=== PATIENT | female | born 1940 | race Caucasian/White ===

== ENCOUNTER → 2017-12-24 10:32 | Outpatient (CLI) | payer MEDICARE, OTHER, SELFPAY ==
--- NOTE | 2017-12-24 10:41 | HPBD_ITS ---
STUDY: DUAL ENERGY X-RAY ABSORPTIOMETRY / DXA REASON FOR EXAM: Female, 77 years old. The patient is postmenopausal. Loss of height. TECHNIQUE: Bone Mineral Density (BMD) measurements of lumbar spine and bilateral hips were obtained. COMPARISON: None. FINDINGS: Lumbar Spine (L1-L4): g/cm2 (0.845) / T-score (-2.8) / Z-score (-1.0) Findings are suggestive of osteoporosis with a moderate fracture risk. Increased kyphosis. Left Femur Total: g/cm2 (0.806) / T-score (-1.6) / Z-score (0.2) Left Femoral Neck: g/cm2 (0.742) / T-score (-2.1) / Z-score (-0.2) Right Femur Total: g/cm2 (0.690) / T-score (-2.5) / Z-score (-0.7) Right Femoral Neck: g/cm2 (0.653) / T-score (-2.8) / Z-score (-0.8) HPBD/Dexa Bone Density Study (HP) IMPRESSION: The patient is considered osteoporotic as outlined below according to World Bud Organization (WHO) criteria with a high fracture risk. Reference Information: The T-score is the number of standard deviations above or below the standard which is normal for young adults at their peak bone mineral density. The World Health Organization (WHO) interprets the T-scores as follows: Above -1 Normal bone density Between -1 and -2.5 Osteopenia Equal to / or below -2.5 Osteoporosis As a practical clinical guideline, osteopenia may be graded as follows: Mild -1 through -1.5 Moderate -1.6 through -2.0 Severe -2.1 through -2.4 The Z-score is the number of standard deviations above or below age-matched controls. A Z-score of less than -1.5 would be considered abnormal. References: 1. NIH Osteoporosis and Related Bone Diseases http://www.osteo.org 2. International Society for Clinical Densitometry http://www.iscd.org 3. National Osteoporosis Foundation http://www.nof.org Electronically Signed: Steve Sanchez MD at 15:07 EST Tel [phone], Service support ,
== END ==
PROVIDERS: Family Provider Family Medicine; PCP Family Medicine; Visit Provider Family Medicine
DX: Z13.820 Encounter for screening for osteoporosis (principal); Z78.0 Asymptomatic menopausal state
CPT/HCPCS: 77080

== ENCOUNTER → 2018-03-04 08:06 | Outpatient (CLI) | payer MEDICARE, OTHER, SELFPAY ==
[2018-03-04 10:45] LABS: ALB/GLOB Ratio 1.1 RATIO (0.9-2.4); AST(SGOT) 30 U/L (15-37); Alanine Aminotransfer ALT/SGPT 28 U/L (13-56); Albumin, Serum 3.8 g/dL (3.2-5.0); Alkaline Phosphatase 64 U/L (45-117); Anion Gap 8 (5-15); BUN 12 mg/dL (7-18); BUN/Creat Ratio 15.4 RATIO (10-20); Calcium,Total 9.1 mg/dL (8.5-10.1); Chloride 103 mmol/L (98-107); Creatinine, Serum 0.78 mg/dL (0.55-1.02); EST Glomerular Filtration Rate 77 mL/min (>60); Est Glom Filt Rate - Afr Amer 93 mL/min (>60); Globulin 3.5 g/dL (2.2-4.2); Glucose 82 mg/dL (74-106); Potassium 4.2 mmol/L (3.5-5.1); Protein, Total 7.3 g/dL (6.4-8.2); Sodium Level 138 mmol/L (136-145)
[2018-03-04 10:50] LABS: Hemoglobin A1c 5.3 % (4.2-6.3)
== END ==
PROVIDERS: Family Provider Family Medicine; PCP Family Medicine; Visit Provider Family Medicine
DX: R73.02 Impaired glucose tolerance (oral) (principal)
CPT/HCPCS: 36415; 80053; 83036

== ENCOUNTER → 2018-09-11 09:03 | Outpatient (CLI) | payer MEDICARE, OTHER, SELFPAY | PROVIDERS: Family Provider Family Medicine; PCP Family Medicine; Visit Provider Family Medicine | DX: R39.15 Urgency of urination (principal) | CPT/HCPCS: 87086; 87088; 87186 ==

== ENCOUNTER → 2019-01-09 08:08 | Outpatient (CLI) | payer MEDICARE, OTHER, SELFPAY ==
[2019-01-09 10:31] LABS: Hemoglobin A1c 5.7 % (4.2-6.3)
[2019-01-09 10:33] LABS: Phosphorus 3.9 mg/dL (2.5-4.9)
[2019-01-09 10:34] LABS: Vitamin D,25 Hydroxy 40.6 ng/mL (29.95-100.01)
== END ==
PROVIDERS: Family Provider Family Medicine; PCP Family Medicine; Referring Provider Family Medicine; Visit Provider Family Medicine
DX: R39.15 Urgency of urination (principal); M81.0 Age-related osteoporosis without current pathological fracture; R73.02 Impaired glucose tolerance (oral)
CPT/HCPCS: 36415; 82306; 82330; 83036; 84100

== ENCOUNTER → 2019-03-23 | Outpatient (CLI) | payer MEDICARE, OTHER, SELFPAY ==
[2019-03-23 09:07] VITALS: BMI 27.0
== END | disposition home or self-care (01) ==
LOC: LABSPEC 12:38
PROVIDERS: Family Provider Family Medicine; PCP Family Medicine; Referring Provider Nurse Practitioner Women's Health; Visit Provider Nurse Practitioner Women's Health
DX: R30.0 Dysuria (principal)
CPT/HCPCS: 87086; 87088; 87186

== ENCOUNTER → 2019-05-04 | Outpatient (CLI) | payer MEDICARE, OTHER, SELFPAY ==
[2019-04-08 14:34] VITALS: BMI 27.0
--- NOTE | 2019-05-04 13:50 | US_ITS ---
STUDY: RENAL ULTRASOUND - COMPLETE REASON FOR EXAM: Female, 78 years old. Urinary tract infection TECHNIQUE: Ultrasound evaluation of the kidneys was performed with real-time and static hauser-scale imaging. COMPARISON: None available. FINDINGS: RIGHT KIDNEY: Normal location of the right kidney, which is normal in size. The right kidney measures 10.4 cm. There is a normal cortex of the right kidney. There is no right renal mass or cyst. There are no right renal calculi. There is no right hydronephrosis. DISTAL RIGHT URETER: There is non-visualization of the distal right ureter. There is no demonstrated right ureterovesical junction calculus. There is no demonstrated right ureteral jet. LEFT KIDNEY: Normal location of the left kidney, which is normal in size. The left kidney measures 10.6 cm. There is a normal cortex of the left kidney. There is no left renal mass or cyst. There are no left renal calculi. There is no left hydronephrosis. DISTAL LEFT URETER: There is non-visualization of the distal left ureter. There is no demonstrated left ureterovesical junction calculus. There is no demonstrated left ureteral jet. BLADDER: The urinary bladder is partially distended and appears unremarkable. US/Kidney and Bladder IMPRESSION: Normal ultrasound of the kidneys and urinary bladder. Electronically Signed: Alec Morgan, at 18:38 EDT Tel , Service support ,
== END | disposition home or self-care (01) ==
LOC: US 13:42
PROVIDERS: Family Provider Family Medicine; PCP Family Medicine; Referring Provider Urology; Visit Provider Urology
DX: N39.0 Urinary tract infection, site not specified (principal)
CPT/HCPCS: 76770

== ENCOUNTER → 2019-05-08 | Outpatient (CLI) | payer MEDICARE, OTHER, SELFPAY ==
[2019-04-08 14:34] VITALS: BMI 27.0
[2019-05-08 10:24] LABS: ALB/GLOB Ratio 1.3 RATIO (0.9-2.4); AST(SGOT) 24 U/L (15-37); Alanine Aminotransfer ALT/SGPT 24 U/L (13-56); Albumin, Serum 3.8 g/dL (3.2-5.0); Alkaline Phosphatase 83 U/L (45-117); Anion Gap 9 (5-15); BUN 15 mg/dL (7-18); BUN/Creat Ratio 22.2 RATIO (10-20); Calcium,Total 9.1 mg/dL (8.5-10.1); Chloride 103 mmol/L (98-107); Creatinine, Serum 0.68 mg/dL (0.55-1.02); EST Glomerular Filtration Rate 90 mL/min (>60); Est Glom Filt Rate - Afr Amer 108 mL/min (>60); Glucose 83 mg/dL (74-106); Phosphorus 4.2 mg/dL (2.5-4.9); Potassium 4.5 mmol/L (3.5-5.1); Protein, Total 6.8 g/dL (6.4-8.2); Sodium Level 138 mmol/L (136-145)
[2019-05-08 10:29] LABS: Hemoglobin A1c 5.7 % (4.2-6.3)
[2019-05-08 10:37] LABS: Vitamin D,25 Hydroxy 50.3 ng/mL (29.95-100.01)
== END | disposition home or self-care (01) ==
LOC: MFPLAB 08:12
PROVIDERS: Family Provider Family Medicine; PCP Family Medicine; Referring Provider Family Medicine; Visit Provider Family Medicine
DX: M81.0 Age-related osteoporosis without current pathological fracture (principal); R73.02 Impaired glucose tolerance (oral)
CPT/HCPCS: 36415; 80053; 82306; 83036; 84100

== ENCOUNTER → 2019-06-30 | Outpatient (CLI) | payer MEDICARE, OTHER, SELFPAY ==
[2019-04-08 14:34] VITALS: BMI 27.0
[2019-06-30 10:22] LABS: Absolute Lymphocyte Count 0.82 X10^3/uL (0.83-4.51); Absolute Neutrophil Count 3.9 X10^3/uL (2.0-7.7); Basophil# 0.01 X10^3/uL; Basophil% 0.2 % (0-1); Eosinophil# 0.18 X10^3/uL; Eosinophils% 3.3 % (0-5); Hematocrit 39.9 % (37-47); Hemoglobin 12.8 g/dL (12.0-15.0); Lymphocyte # 0.82 X10^3/ul (4.0); Lymphocyte % 14.9 % (19-41); Mean Corp Hgb Conc 32.1 g/dL (32-36); Mean Corpuscular Hgb 29.7 pg (27.0-32.0); Mean Corpuscular Volume 92.6 fL (81-99); Mean Platelet Vol. 10.6 fl (6.2-12.0); Monocyte# 0.57 X10^3/uL; Monocyte% 10.3 % (0-10); NRBC Flagged by Analyzer 0 % (0-5); Neutrophil # 3.92 X10^3/uL (2.7-7.7); Neutrophil % 71.1 % (47-70); Platelet Count 227 K/mm3 (150-450); RBC Distribution Width CV 12.6 % (11.6-14.6); RBC Distribution Width SD 43.1 fl (35.1-43.9); Red Blood Count 4.31 M/mm3 (4.2-5.4); White Blood Count 5.5 K/mm3 (4.4-11.0)
[2019-06-30 10:58] LABS: T4 Free Direct 1.01 ng/dL (0.76-1.46); Thyroid Stim Hormone (TSH) 1.92 uIU/mL (0.358-3.74)
[2019-06-30 11:02] LABS: Vitamin B12 214 pg/mL (211-911)
== END | disposition home or self-care (01) ==
LOC: MFPLAB 09:02
PROVIDERS: Family Provider Family Medicine; PCP Family Medicine; Referring Provider Family Medicine; Visit Provider Family Medicine
DX: R53.83 Other fatigue (principal)
CPT/HCPCS: 36415; 82607; 84439; 84443; 85025

== ENCOUNTER → 2019-09-16 09:34 | Outpatient (CLI) | payer MEDICARE, OTHER, SELFPAY ==
[2019-04-08 14:34] VITALS: BMI 27.0
[2019-09-16 12:23] LABS: Absolute Lymphocyte Count 1.15 X10^3/uL (0.83-4.51); Absolute Neutrophil Count 3.7 X10^3/uL (2.0-7.7); Basophil# 0.04 X10^3/uL; Basophil% 0.7 % (0-1); Eosinophil# 0.21 X10^3/uL; Eosinophils% 3.7 % (0-5); Hematocrit 41.3 % (37-47); Hemoglobin 13.4 g/dL (12.0-15.0); Lymphocyte # 1.15 X10^3/ul (4.0); Lymphocyte % 20.3 % (19-41); Mean Corp Hgb Conc 32.4 g/dL (32-36); Mean Corpuscular Hgb 29.8 pg (27.0-32.0); Mean Platelet Vol. 10.5 fl (6.2-12.0); Monocyte# 0.56 X10^3/uL; Monocyte% 9.9 % (0-10); NRBC Flagged by Analyzer 0 % (0-5); Neutrophil # 3.69 X10^3/uL (2.7-7.7); Neutrophil % 65.2 % (47-70); Platelet Count 256 K/mm3 (150-450); RBC Distribution Width CV 12.6 % (11.6-14.6); RBC Distribution Width SD 42.5 fl (35.1-43.9); Red Blood Count 4.49 M/mm3 (4.2-5.4); White Blood Count 5.7 K/mm3 (4.4-11.0)
[2019-09-16 12:47] LABS: Anion Gap 7 (5-15); BUN 15 mg/dL (7-18); BUN/Creat Ratio 25.1 RATIO (10-20); Calcium,Total 9.2 mg/dL (8.5-10.1); Chloride 103 mmol/L (98-107); EST Glomerular Filtration Rate 103 mL/min (>60); Est Glom Filt Rate - Afr Amer 125 mL/min (>60); Glucose 90 mg/dL (74-106); Potassium 4.1 mmol/L (3.5-5.1); Sodium Level 135 mmol/L (136-145)
== END ==
PROVIDERS: Family Provider Family Medicine; PCP Family Medicine; Referring Provider Family Medicine; Visit Provider Family Medicine
DX: Z01.818 Encounter for other preprocedural examination (principal)
CPT/HCPCS: 36415; 80048; 85025

== ENCOUNTER 2019-10-06 09:41 | Observation (INO) | payer MEDICARE, OTHER, SELFPAY ==
[2019-04-08 14:34] VITALS: BMI 27.0
[2019-10-06] VITALS (11 sets, daily range): BP systolic 103–156; BP diastolic 53–91; PULSE 75–87; RESP 16–18; TEMP 36.5–37; O2SAT 92–100; BMI 26.9
[2019-10-06] MEDS: Lactated Ringers 1,000 ML 100 ML IV ×2 (07:16→16:18)
[2019-10-06] MEDS: Cefazolin 2 GM in 0.9% Normal Saline 100 ML IV (07:29)
--- NOTE | 2019-10-06 07:30 | PCM.OPRPT ---
Problem List (1) Cystocele with rectocele Status: Acute (2) Vaginal vault prolapse Status: Acute Report of Operation Date of Procedure: 10/06/19 Pre-Operative Diagnosis: cystocele, rectocele, vaginal vault prolapse Post-Operative Diagnosis: same Surgery/Procedure Performed:: Anterior repair with dermis, bilateral sacrospinous ligament fixation, posterior repair, mid urethral sling insertion, cystoscopy processing supervisor: Arcadio Voss Type of Anesthesia:: General Estimated Blood Loss (mL): 25cc Description of Procedure: The patient is a 78-year-old female with pelvic organ prolapse status post hysterectomy. She presented to the office and underwent testing in preparation for surgical intervention. After discussing all the risk, benefits, alternatives, informed consent was obtained. Patient was taken to the operating room and placed on the operating room table. Anesthesia monitored the head, neck, airway, IV access and vital signs throughout the case. Once anesthesia was appropriately administered, the patient was placed into exaggerated dorsal lithotomy in Trendelenburg position. Her anterior vaginal wall was injected submucosally with 1% Xylocaine with epinephrine. A midline incision was made in vertical fashion in both sharp and blunt dissection ensued until bilateral sacral spinous ligaments were freed from surrounding tissues. Ethibond sutures were then passed using the Capio device. The sutures were brought through the dermis which was cut to shape, and then through the apex of the vagina. The dermis was then secured using 2-0 Vicryl to the lateral aspects of the pubocervical fascia and then into the periurethral space bilaterally. The midline incision was closed using running interlocking 2-0 Vicryl. At this time the Ethibond sutures were tied down and the prolapse was resolved. Attention then turned towards the posterior vagina which was once again injected submucosally. An incision was made and sharp and then blunt dissection was performed until the rectovaginal fascia was identified bilaterally. This was brought together with 2-0 Vicryl interrupted sutures. A 2 layer closure was performed. The vaginal mucosa was then closed in running interlocking fashion. At this time attention was turned to the mid urethra which is once again injected submucosally. A midline incision was then made over the mid urethra in vertical fashion approximately 2 cm in length. Sharp and blunt dissection was performed on either side of the urethra to open up the periurethral space. Care was taken to avoid any interference with the urethra itself. Using the trochars the alto's mid urethral sling was inserted without difficulty into the obturator spaces bilaterally. The mesh lay flat against the urethra without tension. The tensioning suture was then cut and the midline incision was closed using running interlocking 2-0 Vicryl. At this time the Galo catheter was removed and a cystourethroscopy was performed. Bilateral ureteral jets were observed. There were no entrances into the urinary bladder with any foreign object including suture or mesh. At this time the scope was removed and the Galo catheter was replaced. The vagina was filled with Premarin cream and vaginal packing. The patient was then awakened and taken to the recovery room in good condition. Grafts/Implants Used: Dermis [place], Sling Altis - Complications none - Admit VTE Documentation VTE Present on Admission: Yes VTE Mechan Device Prophylaxis: SCD's VTE Pharm Prophylaxis ordered?: Yes
--- NOTE | 2019-10-06 07:32 | DCINST_ITS ---
Discharge Diet: No Restrictions Discharge Activity: May not drive while taking narcotic pain medications., May Shower, - - no tub bathing May resume sexual activity in: 8 weeks Lifting Restrictions: 5 pounds for 8 weeks Additional Activity Instructions:: no exercise, no strenuous activity. ok to walk up and down stairs as needed Call your doctor if your incision/area has: Continuous Slow Oozing, Sudden Increased Bleeding, Increased Pain/ Swelling, Foul Smelling Discharge Call your doctor if you observe: Fever of 101 or Higher, Inability to urinate, Shortness of breath, Chest pain, Calf discomfort, Uncontrolled pain Allergies/Adverse Reactions: Allergies omeprazole Allergy (Unknown, Verified 10/06/19 06:45) Unknown Sulfa (Sulfonamide Antibiotics) Allergy (Unknown, Verified 10/06/19 06:45) Unknown diclofenac sodium [From Arthrotec] Allergy (Verified 10/06/19 06:45) Unknown hydrochlorothiazide [From Dyazide] Allergy (Verified 10/06/19 06:45) Hives misoprostol [From Arthrotec] Allergy (Verified 10/06/19 06:45) Unknown sulfabenzamide Allergy (Verified 10/06/19 06:45) Rash triamterene [From Dyazide] Allergy (Verified 10/06/19 06:45) Hives Medications to take at Discharge biotin 5,000 mcg sublingual tablet 5,000 mcg SUBLINGUAL DAILY 03/12/19 calcium carbonate 600 mg calcium (1,500 mg) tablet 600 mg PO DAILY tab 03/12/19 krill 1,000 mg-omega-3 230 mg-dha 60 lh-zqe-cfrmiujpi-astaxan capsule 1 cap PO DAILY 03/12/19 multivitamin capsule 1 cap PO DAILY 03/12/19 ranitidine 150 mg capsule 150 mg PO DAILY PRN 03/12/19 Ascorbic Acid [Vitamin C] 500 mg PO DAILY 09/22/19 Cholecalciferol (Vitamin D3) [Vitamin D3] 1,000 unit PO DAILY 09/22/19 Cyanocobalamin [Vitamin B12] 1,000 mcg PO DAILY@0800 09/22/19 Estradiol See Rx Instructions VAGINAL MOWEFR 09/22/19 Naproxen Sodium [Aleve] 220 mg PO PRN PRN 09/22/19 Primary Care Physician: Schinner,Aneudy E, MD [Primary Care Provider] - Test Results: Test results from this visit will be discussed in further detail at your follow- up appointment, if applicable. Please Follow Up With: Kristin Carballo MD When: 2 weeks, call for appt.
[2019-10-06] MEDS: Estrogens,Conj. 1 Tube 1 DOSE (09:05)
[2019-10-06] MEDS: HYDROcodone Bitartrate/Apap 5/325 Tablet PO ×2 (14:04→15:10)
[2019-10-06] MEDS: Cephalexin 500 MG Capsule PO (21:14)
[2019-10-07] MEDS: HYDROcodone Bitartrate/Apap 5/325 Tablet PO (00:51)
[2019-10-07] MEDS: Lactated Ringers 1,000 ML 100 ML IV (01:59)
[2019-10-07 02:21] VITALS: BP 124/58; PULSE 75; RESP 16; TEMP 36.7; O2SAT 95
[2019-10-07] MEDS: Enoxaparin 40 MG/0.4 ML Syringe SC (05:37)
[2019-10-07 07:02] VITALS: O2SAT 97
--- NOTE | 2019-10-07 08:42 | PCM.PN.BLA ---
Progress Note Doing well this morning. Catheter didn't drain well overnight, she is excited to void on her own. Galo and packing removed. Trial of void and home today. STROKE Vital Signs/Narrative: Vital Signs Pulse Ox 10/07/19 07:02 97
[2019-10-07 08:49] VITALS: BP 124/61; PULSE 87; RESP 18; TEMP 36.4; O2SAT 98
--- NOTE | 2019-10-07 08:54 | NURSING ---
Clover Removed by Dr. Carballo
[2019-10-07] MEDS: Cephalexin 500 MG Capsule PO (08:57)
== END 2019-10-07 13:04 | disposition home or self-care (01) ==
LOC: MS3 10:32 → SDC 10:32
PROVIDERS: Admitting Provider Urology; Family Provider Family Medicine; PCP Family Medicine; Referring Provider Urology; Visit Provider Urology
PROC: (CPT 57260; principal; 2019-10-06 07:15)
DX: N99.3 Prolapse of vaginal vault after hysterectomy (principal); N36.42 Intrinsic sphincter deficiency (ISD); N39.3 Stress incontinence (female) (male); N95.2 Postmenopausal atrophic vaginitis; K21.9 Gastro-esophageal reflux disease without esophagitis; Z79.899 Other long term (current) drug therapy
CPT/HCPCS: 00860; 57240; 57282; 57288; 96360; 96361; 96372; 99218; 99251; J7120; G0378; G0379; G0463; J2405; Q9968

== ENCOUNTER → 2020-01-13 08:03 | Outpatient (CLI) | payer MEDICARE, OTHER, SELFPAY ==
[2019-10-06 11:12] VITALS: BMI 26.9
[2020-01-13 10:17] LABS: AST(SGOT) 23 U/L (15-37); Alanine Aminotransfer ALT/SGPT 22 U/L (13-56); Albumin, Serum 3.7 g/dL (3.2-5.0); Alkaline Phosphatase 84 U/L (45-117); Anion Gap 8 (5-15); BUN 14 mg/dL (7-18); BUN/Creat Ratio 17.7 RATIO (10-20); Chloride 104 mmol/L (98-107); Creatinine, Serum 0.79 mg/dL (0.55-1.02); EST Glomerular Filtration Rate 75 mL/min (>60); Est Glom Filt Rate - Afr Amer 90 mL/min (>60); Globulin 3.6 g/dL (2.2-4.2); Glucose 84 mg/dL (74-106); Potassium 4.2 mmol/L (3.5-5.1); Protein, Total 7.3 g/dL (6.4-8.2); Sodium Level 137 mmol/L (136-145)
[2020-01-13 10:46] LABS: Vitamin D,25 Hydroxy 43.8 ng/mL
[2020-01-13 10:55] LABS: Hemoglobin A1c 5.6 % (4.2-6.3)
== END ==
PROVIDERS: PCP Family Medicine; Referring Provider Family Medicine; Visit Provider Family Medicine
DX: M81.0 Age-related osteoporosis without current pathological fracture (principal); R73.02 Impaired glucose tolerance (oral)
CPT/HCPCS: 36415; 80053; 82306; 83036; 84100

== ENCOUNTER → 2020-07-14 08:05 | Outpatient (CLI) | payer MEDICARE, OTHER, SELFPAY ==
[2019-10-06 11:12] VITALS: BMI 26.9
[2020-07-14 10:21] LABS: Vitamin D,25 Hydroxy 53.4 ng/mL
[2020-07-14 10:23] LABS: Phosphorus 4.1 mg/dL (2.5-4.9)
[2020-07-14 10:24] LABS: Hemoglobin A1c 5.5 % (3.8-5.6)
== END ==
PROVIDERS: PCP Family Medicine; Referring Provider Family Medicine; Visit Provider Family Medicine
DX: M81.0 Age-related osteoporosis without current pathological fracture (principal); R73.02 Impaired glucose tolerance (oral)
CPT/HCPCS: 36415; 82306; 83036; 84100

== ENCOUNTER → 2020-10-04 12:42 | Outpatient (CLI) | payer MEDICARE, OTHER, SELFPAY ==
[2019-10-06 11:12] VITALS: BMI 26.9
--- NOTE | 2020-10-04 12:46 | CT_ITS ---
STUDY: CT RIGHT LOWER EXTREMITY REASON FOR EXAM: Right knee pain, varus deformity, surgical planning. TECHNIQUE: Transaxial CT imaging of the lower extremity was performed. Coronal and sagittal images were reformatted. Individualized dose optimization techniques were used for this CT. COMPARISON: None. FINDINGS: Knee: There are small marginal osteophytes, mild joint space narrowing and subchondral cystic change/eburnation (coronal reconstruction 32). Normal lateral femoral condyle and lateral tibial plateau. There is preservation of the articular joint space of the lateral knee compartment. There are small marginal osteophyte of the patellofemoral articulation without joint space narrowing. Normal proximal tibiofibular articulation. There is a moderate-sized joint effusion. The quadriceps tendon is grossly normal. The patellar tendon is grossly normal. Normal Hoffa''s fat pad. There is chondrocalcinosis in the lateral meniscus. Hip: There is chondrocalcinosis of the left hip (sagittal reconstruction 52). Ankle: Normal tibiotalar, posterior subtalar, talonavicular and calcaneocuboid articulations. There is a small plantar calcaneal enthesophyte. 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 Left knee joint effusion. Chondrocalcinosis. Electronically Signed: Fabian Cardozo MD at 14:20 EST Tel , Service support ,
== END ==
PROVIDERS: PCP Family Medicine; Referring Provider Orthopaedic Surgery; Visit Provider Orthopaedic Surgery
DX: M21.161 Varus deformity, not elsewhere classified, right knee (principal)
CPT/HCPCS: 73700

== ENCOUNTER → 2020-10-05 10:00 | Outpatient (CLI) | payer MEDICARE, OTHER, SELFPAY ==
[2019-10-06 11:12] VITALS: BMI 26.9
--- NOTE | 2020-10-10 10:13 | EKG12_ITS ---
Test Reason : PRE OP Blood Pressure : / mmHG Vent. Rate : 065 BPM Atrial Rate : 065 BPM P-R Int : 188 ms QRS Dur : 092 ms QT Int : 400 ms P-R-T Axes : 041 019 012 degrees QTc Int : 416 ms Normal sinus rhythm Normal ECG Confirmed by EKATERINA MARKHAM, DENISE ([id number]), marketing editor ELIS RUBI ([id number]) on 10/11/2020 9:25:20 AM Referred By: Brian Collins Confirmed By:DENISE TOBAR MD
[2020-10-10 11:48] LABS: Absolute Lymphocyte Count 1.34 X10^3/uL (0.83-4.51); Absolute Neutrophil Count 5.1 X10^3/uL (2.0-7.7); Basophil# 0.05 X10^3/uL; Basophil% 0.7 % (0-1); Eosinophil# 0.17 X10^3/uL; Eosinophils% 2.3 % (0-5); Hematocrit 41.5 % (37-47); Hemoglobin 13.1 g/dL (12.0-15.0); Lymphocyte # 1.34 X10^3/ul (4.0); Mean Corp Hgb Conc 31.6 g/dL (32-36); Mean Corpuscular Hgb 29.4 pg (27.0-32.0); Mean Platelet Vol. 10.1 fl (6.2-12.0); Monocyte# 0.72 X10^3/uL; Monocyte% 9.7 % (0-10); NRBC Flagged by Analyzer 0 % (0-5); Neutrophil # 5.07 X10^3/uL (2.7-7.7); Neutrophil % 68.1 % (47-70); Platelet Count 309 K/mm3 (150-450); RBC Distribution Width SD 44.8 fl (35.1-43.9); Red Blood Count 4.46 M/mm3 (4.2-5.4); White Blood Count 7.4 K/mm3 (4.4-11.0)
[2020-10-10 12:18] LABS: Anion Gap 6 (5-15); BUN 15 mg/dL (7-18); BUN/Creat Ratio 21.6 RATIO (10-20); Calcium,Total 9.5 mg/dL (8.5-10.1); Chloride 104 mmol/L (98-107); Creatinine, Serum 0.69 mg/dL (0.55-1.02); EST Glomerular Filtration Rate 87 mL/min (>60); Est Glom Filt Rate - Afr Amer 105 mL/min (>60); Glucose 83 mg/dL (74-106); Potassium 4.1 mmol/L (3.5-5.1); Sodium Level 135 mmol/L (136-145)
[2020-10-10 12:22] LABS: Magnesium 2.1 mg/dL (1.6-2.6)
[2020-10-10 12:26] LABS: Hemoglobin A1c 5.4 % (3.8-5.6)
== END ==
PROVIDERS: Anesthesiology; PCP Family Medicine; Referring Provider Orthopaedic Surgery; Visit Provider Orthopaedic Surgery
DX: Z01.810 Encounter for preprocedural cardiovascular examination (principal); Z20.828 Contact with and (suspected) exposure to other viral communicable diseases
CPT/HCPCS: 36415; 80048; 83036; 83735; 85025; 87077; 87081; 87426; 93005; C9803

== ENCOUNTER → 2021-01-17 08:08 | Outpatient (CLI) | payer MEDICARE, OTHER, SELFPAY ==
[2019-10-06 11:12] VITALS: BMI 26.9
== END ==
PROVIDERS: PCP Family Medicine; Referring Provider Family Medicine; Visit Provider Family Medicine
DX: Z00.00 Encounter for general adult medical examination without abnormal findings (principal)

== ENCOUNTER → 2021-01-18 10:52 | Outpatient (CLI) | payer MEDICARE, OTHER, SELFPAY ==
[2019-10-06 11:12] VITALS: BMI 26.9
--- NOTE | 2021-01-18 10:55 | VDLE_ITS ---
Reason For Study: Rt leg edema RIGHT LEFT GSV is normal. CFV is compressible, spontaneous, phasic, CFV is compressible, spontaneous, phasic, competent, and demonstrates normal competent and demonstrates normal augmentation. augmentation. FV is compressible, spontaneous, phasic, competent and demonstrates normal augmentation. POP V is compressible, spontaneous, phasic, competent and demonstrates normal augmentation. T/P Trunk is compressible. PTV is compressible. RT PerV is compressible. Nonvascularized vascular structure noted in the popliteal fossa measuring approximently 2.12 x 2.18 x 5.60 cm. Procedure This is a venous duplex using B-mode, color flow and spectral Doppler. Exam performed in department. A preliminary report was called and/or faxed to [facility]. Interpretation Summary Deep veins of the right lower extremity are patent and compressible segmentally. There is no evidence of right lower extremity deep vein thrombosis. Valvular competence appears intact within the proximal deep venous system on the right . The right great saphenous vein appears patent and compressible segmentally. A non-vascular, hypoechoic structure is noted in the right popliteal space, measuring 2.12 cm x 2.18 cm x 5.60 cm. This probably represents a popliteal cyst. Clinical correlation is advised. Ordering Physician: Aneudy Joshi Referring Physician: Aneudy Joshi Performed By: Nicole Maxwell RVT
== END ==
PROVIDERS: PCP Family Medicine; Referring Provider Family Medicine; Visit Provider Family Medicine
DX: R60.0 Localized edema (principal)
CPT/HCPCS: 93971

== ENCOUNTER → 2021-01-23 07:49 | Outpatient (CLI) | payer MEDICARE, OTHER, SELFPAY ==
[2019-10-06 11:12] VITALS: BMI 26.9
--- NOTE | 2021-01-23 07:50 | CT_ITS ---
STUDY: CT ABDOMEN AND PELVIS WITH CONTRAST REASON FOR EXAM: Female, 80 years old. R LEG EDEMA X 6-8 WKS RADIATION DOSAGE (If Supplied By Facility): CTDIvol = ( 13.59 ) mGy, DLP = ( 634.16 ) mGycm TECHNIQUE: Transaxial images were obtained from the dome of the diaphragm to the symphysis pubis without oral contrast. IV 100mL Isovue-300 was administered. Sagittal and coronal images were reconstructed. Individualized dose optimization techniques were used for this CT. COMPARISON: None. FINDINGS: Minimal linear atelectasis at the left lung base versus mild scarring. The visualized portions of the heart are within normal limits. Normal liver. The patient is status post cholecystectomy. There is dilatation of the common bile duct with a maximum transverse dimension of 1.4 cm. There are multiple benign calcified granulomata of the spleen. Normal pancreas. Normal bilateral adrenal glands. Normal right kidney. Normal left kidney. Normal visualized stomach. Normal small intestine. There are multiple colonic diverticula consistent with diverticulosis. The appendix is visualized and appears normal. There is scattered atherosclerotic calcification of the abdominal aorta, without a demonstrated aneurysm. Normal inferior vena cava. Normal retroperitoneum. Normal urinary bladder. There is absence of the uterus consistent with a prior hysterectomy. Normal abdominal wall. Disc space narrowing and degeneration at the L4-L5 and L5-S1 level. Minimal anterior listhesis of L4 on L5 most likely secondary to facet joint osteoarthritis. CT/Abdomen/Pelvis WITH Contrast IMPRESSION: Status post cholecystectomy. Dilated common bile duct. Electronically Signed: Steve Sanchez MD at 15:25 EDT , Service support ,
[2021-01-23 08:05] LABS: CREATININE FINGERSTICK 0.9 mg/dL (0.55-1.02); EGFR FINGERSTICK > 60.0000 mL/min (>60)
== END ==
PROVIDERS: PCP Family Medicine; Referring Provider Family Medicine; Visit Provider Family Medicine
DX: R60.0 Localized edema (principal)
CPT/HCPCS: 74177; Q9967; A4216

== ENCOUNTER 2021-02-13 09:32 | Observation (INO) | payer MEDICARE, OTHER, SELFPAY ==
[2019-10-06 11:12] VITALS: BMI 26.9
--- NOTE | 2021-02-06 09:11 | EKG12_ITS ---
Test Reason : REOP Blood Pressure : / mmHG Vent. Rate : 072 BPM Atrial Rate : 072 BPM P-R Int : 176 ms QRS Dur : 092 ms QT Int : 372 ms P-R-T Axes : 037 022 012 degrees QTc Int : 407 ms Normal sinus rhythm Normal ECG Confirmed by LOLIS MARKHAM, ROXANNE ([id number]), editor department ELIS RUBI ([id number]) on 02/07/2021 10:43:53 AM Referred By: Brian Collins Confirmed By:ROXANNE DANIELLE MD
[2021-02-06 10:31] LABS: Absolute Lymphocyte Count 1.11 X10^3/uL (0.83-4.51); Absolute Neutrophil Count 5.2 X10^3/uL (2.0-7.7); Basophil# 0.03 X10^3/uL; Basophil% 0.4 % (0-1); Eosinophil# 0.16 X10^3/uL; Eosinophils% 2.2 % (0-5); Hematocrit 40.4 % (37-47); Hemoglobin 12.9 g/dL (12.0-15.0); Lymphocyte # 1.11 X10^3/ul (4.0); Lymphocyte % 15.6 % (19-41); Mean Corp Hgb Conc 31.9 g/dL (32-36); Mean Corpuscular Hgb 29.9 pg (27.0-32.0); Mean Corpuscular Volume 93.7 fL (81-99); Mean Platelet Vol. 10.1 fl (6.2-12.0); Monocyte# 0.61 X10^3/uL; Monocyte% 8.6 % (0-10); NRBC Flagged by Analyzer 0 % (0-5); Neutrophil % 72.9 % (47-70); Platelet Count 316 K/mm3 (150-450); RBC Distribution Width CV 12.1 % (11.6-14.6); RBC Distribution Width SD 41.7 fl (35.1-43.9); Red Blood Count 4.31 M/mm3 (4.2-5.4); White Blood Count 7.1 K/mm3 (4.4-11.0)
[2021-02-06 10:51] LABS: Magnesium 1.6 mg/dL (1.6-2.6)
[2021-02-06 10:57] LABS: Anion Gap 6 (5-15); BUN 13 mg/dL (7-18); BUN/Creat Ratio 20.7 RATIO (10-20); Calcium,Total 9.1 mg/dL (8.5-10.1); Chloride 103 mmol/L (98-107); Creatinine, Serum 0.63 mg/dL (0.55-1.02); EST Glomerular Filtration Rate 97 mL/min (>60); Est Glom Filt Rate - Afr Amer 118 mL/min (>60); Glucose 96 mg/dL (74-106); Potassium 4.2 mmol/L (3.5-5.1); Sodium Level 136 mmol/L (136-145)
[2021-02-06 11:00] LABS: Hemoglobin A1c 5.2 % (3.8-5.6)
[2021-02-13] VITALS (14 sets, daily range): BP systolic 112–151; BP diastolic 56–82; PULSE 66–95; RESP 14–18; TEMP 36.1–36.6; O2SAT 97–100; BMI 27.8
--- NOTE | 2021-02-13 | KNEE_PTH ---
PATIENT: PHYLLIS STINSON A LOC: [facility] U#:[id number] AGE/SX: 80/F ROOM: [facility] [place] RE02/13/[address]: Dr. Cecil Cuello DO : [id number] BED: 1 DIS: 02/14/2021 SPEC #: [id number] RECD: 02/13/21 12:47 STATUS: LISA REQ #: [id number] KIT: 02/13/21 00:[address]: Brian Collins DEPT: SURGICAL PATHOLOGY RECD BY: Patrick Garcia ENTERED: 02/14/21 07:43 SP TYPE: TOTAL KNEE OTHR DR: MD Dr. Aneudy Fowler MD Dr. Michael Knapic, DO Dr. Mark Tereletsky, DO Tissues: Knee, NOS Procedures: Decalcification bone/plaque Surgery Specimen Level IV Comments: @ Ordering doctor for DEC edited from to DR.MKNAPI Reyna by SHUN at 02/14/21918 @ Ordering doctor for SUIV edited from to DR.MKNAPI Reyna by SHUN at 02/14/21918 @ Submitting doctor edited from to DR.MKNAPI Reyna by SHUN at 02/14/21918 HEADER OPERATION: ERAS, total knee replacement robotic arm assist PRE-OP DIAGNOSIS: Varus deformity with bone on bone osteoarthritis medial compartment TISSUE SUBMITTED: Bone from right knee MICROSCOPIC DIAGNOSIS Bone from right knee, total knee replacement/resection: Pieces of bone with severe degenerative osteoarthritic changes. Fibroadipose tissue, fibroconnective tissue and moderately reactive synovial tissue with chronic inflammation. Focal changes consistent with pseudogout. CARLOS ALBERTO:martita 02/17/2021 MICROSCOPIC DESCRIPTION Slides are reviewed. GROSS DESCRIPTION Received is one container designated bone and soft tissue right knee. The specimen consists of multiple fragments of pope-yellow bone measuring in aggregate 11 x 8 x 3 cm. Also in the specimen container are multiple fragments of yellow-white soft tissue measuring in aggregate 9 x 7 x 3 cm. A number of bony fragments contain articular surfaces consistent with tibial plateau and femoral condyle and displaying prominent osteophyte formation, eburnation, and bone erosion. Coal Shoveler sections are submitted in two cassettes as follows: 1 - soft tissue, 2 - bone after decalcification. / CARLOS ALBERTO:martita 02/14/21 TC:5 [facility]: [id number], [id number]
[2021-02-13] MEDS: Acetaminophen 500 MG Tablet 1000 MG PO ×3 (08:40→21:14)
[2021-02-13 08:41] LABS: Bedside Glucose 67 mg/dL (70-110)
[2021-02-13] MEDS: Gabapentin 600 MG Tablet PO (08:41)
[2021-02-13] MEDS: Lactated Ringers 1,000 ML 100 ML IV (08:44)
--- NOTE | 2021-02-13 09:33 | RAD_ITS ---
STUDY: X-RAY - RIGHT KNEE REASON FOR EXAM: Female, 80 years old. post op -- AP and Lateral xray of operative knee in PACU TECHNIQUE: 2 view(s) of the knee. COMPARISON: None. FINDINGS: Status post total knee arthroplasty. Surgical hardware intact/well aligned. No acute complications. Postoperative soft tissues. RAD/Knee 1 or 2 Views IMPRESSION: Uncomplicated right knee arthroplasty Electronically Signed: Hunter Garcia DO at 13:24 EDT Tel , Service support ,
[2021-02-13] MEDS: Cefazolin 2 GM in 0.9% Normal Saline 100 ML IV (10:15)
[2021-02-13] MEDS: Lactated Ringers 1,000 ML 999 ML IV (12:20)
[2021-02-13 13:05] LABS: Hematocrit 38.6 % (37-47); Hemoglobin 12.4 g/dL (12.0-15.0); Mean Corp Hgb Conc 32.1 g/dL (32-36); Mean Corpuscular Hgb 29.9 pg (27.0-32.0); Mean Platelet Vol. 9.7 fl (6.2-12.0); Platelet Count 258 K/mm3 (150-450); RBC Distribution Width CV 12.3 % (11.6-14.6); RBC Distribution Width SD 41.9 fl (35.1-43.9); Red Blood Count 4.15 M/mm3 (4.2-5.4); White Blood Count 5.8 K/mm3 (4.4-11.0)
[2021-02-13 13:14] LABS: Anion Gap 5 (5-15); BUN 7 mg/dL (7-18); BUN/Creat Ratio 11.1 RATIO (10-20); Calcium,Total 8.7 mg/dL (8.5-10.1); Chloride 105 mmol/L (98-107); Creatinine, Serum 0.63 mg/dL (0.55-1.02); EST Glomerular Filtration Rate 96 mL/min (>60); Est Glom Filt Rate - Afr Amer 117 mL/min (>60); Estimated Creatinine Clearance 34.42 ml/min; Glucose 135 mg/dL (74-106); Potassium 3.7 mmol/L (3.5-5.1); Sodium Level 137 mmol/L (136-145)
[2021-02-13] MEDS: Senna/Docusate Sodium 1 Tablet 2 TABLET PO ×2 (15:01→21:15)
[2021-02-13] MEDS: Aspirin 81 MG TAB.CHEW PO (16:33)
[2021-02-13] MEDS: Cefazolin 1 GM/50 ML BAG IV (16:49)
[2021-02-13] MEDS: Loratadine 10 MG Tablet PO (21:15)
[2021-02-14] MEDS: Cefazolin 1 GM/50 ML BAG IV (00:07)
[2021-02-14 02:13] VITALS: BP 94/56; PULSE 70; RESP 16; TEMP 36.4; O2SAT 97
[2021-02-14] MEDS: Acetaminophen 500 MG Tablet 1000 MG PO ×2 (05:36→13:19)
[2021-02-14 06:36] LABS: Hematocrit 32.3 % (37-47); Hemoglobin 10.4 g/dL (12.0-15.0); Mean Corp Hgb Conc 32.2 g/dL (32-36); Mean Corpuscular Hgb 30.1 pg (27.0-32.0); Mean Corpuscular Volume 93.6 fL (81-99); Mean Platelet Vol. 9.6 fl (6.2-12.0); Platelet Count 240 K/mm3 (150-450); RBC Distribution Width CV 12.4 % (11.6-14.6); RBC Distribution Width SD 42.4 fl (35.1-43.9); Red Blood Count 3.45 M/mm3 (4.2-5.4); White Blood Count 8.7 K/mm3 (4.4-11.0)
[2021-02-14 06:59] LABS: Anion Gap 8 (5-15); BUN 9 mg/dL (7-18); BUN/Creat Ratio 13.2 RATIO (10-20); Calcium,Total 8.5 mg/dL (8.5-10.1); Chloride 103 mmol/L (98-107); Creatinine, Serum 0.68 mg/dL (0.55-1.02); EST Glomerular Filtration Rate 88 mL/min (>60); Est Glom Filt Rate - Afr Amer 107 mL/min (>60); Estimated Creatinine Clearance 34.42 ml/min; Glucose 108 mg/dL (74-106); Potassium 4.2 mmol/L (3.5-5.1); Sodium Level 137 mmol/L (136-145)
[2021-02-14 07:33] VITALS: BP 151/77; PULSE 82; RESP 18; TEMP 36.4; O2SAT 100
[2021-02-14] MEDS: Aspirin 81 MG TAB.CHEW PO (07:40)
[2021-02-14] MEDS: Calcium Carb/Vitamin D 1 TABLET Tablet PO (07:41)
[2021-02-14] MEDS: Cyanocobalamin 500 MCG Tablet 1000 MCG PO (07:41)
[2021-02-14] MEDS: Senna/Docusate Sodium 1 Tablet 2 TABLET PO (07:41)
[2021-02-14] MEDS: Multivitamins,Therapeutic Tablet 1 TABLET PO (07:41)
[2021-02-14] MEDS: Ascorbic Acid 500 MG Tablet PO (07:41)
--- NOTE | 2021-02-14 07:48 | PCM.PN.ORT ---
Subjective: Patient c/o 11/20 pain. Had an episode in shower where she dropped the soap and felt a click in her knee this morning. - Physical Exam Vitals/I&O's: Vital Signs Temp Pulse Resp BP Pulse Ox 97.5 F L 82 18 151/77 H 100 02/14/21 07:33 02/14/21 07:33 02/14/21 07:33 02/14/21 07:33 02/14/21 07:33 Oxygen Flow Rate (L/min) 6 Oxygen Delivery Method Room Air Weight: 147 lb 11.355 oz Body Mass Index (BMI) 27.8 Intake and Output for Last 24 Hours 02/12/21 02/13/21 02/14/21 23:59 23:59 23:59 Intake Total 2884 / 2884 50 / 50 Balance 2884 / 2884 50 / 50 General: Alert, Oriented x3, Cooperative Extremities: No clubbing, No cyanosis, No edema, Capillary Refill Less than 3 Seconds, No Calf Tenderness Skin: Incision - stable, gentle ROM well tolerated Neurological: Neuro grossly intact Laboratory Results 02/13/21 08:18: POC Glucose 67 L 02/13/21 12:30: WBC 5.8, RBC 4.15 L, Hgb 12.4, Hct 38.6, MCV 93.0, MCH 29.9, MCHC 32.1, RDW Std Deviation 41.9, RDW Coeff of Brook 12.3, Plt Count 258, MPV 9.7 02/13/21 12:30: Sodium 137, Potassium 3.7, Chloride 105, Carbon Dioxide 27.0, Anion Gap 5, BUN 7, Creatinine 0.63, Estim Creat Clear Calc 34.42, Est GFR (MDRD) Af Amer 117, Est GFR (MDRD) Non-Af 96, BUN/Creatinine Ratio 11.1, Glucose 135 H, Calcium 8.7 02/14/21 06:20: WBC 8.7, RBC 3.45 L, Hgb 10.4 L, Hct 32.3 L, MCV 93.6, MCH 30.1, MCHC 32.2, RDW Std Deviation 42.4, RDW Coeff of Brook 12.4, Plt Count 240, MPV 9.6 02/14/21 06:20: Sodium 137, Potassium 4.2, Chloride 103, Carbon Dioxide 26.0, Anion Gap 8, BUN 9, Creatinine 0.68, Estim Creat Clear Calc 34.42, Est GFR (MDRD) Af Amer 107, Est GFR (MDRD) Non-Af 88, BUN/Creatinine Ratio 13.2, Glucose 108 H, Calcium 8.5 Current Medications Acetaminophen (Acetaminophen 500 Mg Tablet) 1,000 mg PO Q8 [facility] Last Admin: 02/14/21 05:36 Dose: 1,000 mg Documented by: Ascorbic Acid (Ascorbic Acid 500 Mg Tablet) 500 mg PO DAILY [facility] Last Admin: 02/14/21 07:41 Dose: 500 mg Documented by: Aspirin (Aspirin 81 Mg Tab.Chew) 81 mg PO BIDCM [facility] Last Admin: 02/14/21 07:40 Dose: 81 mg Documented by: Calcium/Vitamin D (Calcium Carb/Vitamin D 1 Tablet Tablet) 1 tablet PO DAILY [facility] Last Admin: 02/14/21 07:41 Dose: 1 tablet Documented by: Clobetasol Propionate (Clobetasol Propionate 0.05% Cream) 15 applic TOPICAL DAILY PRN PRN Reason: PSORIASIS Cyanocobalamin (Cyanocobalamin 500 Mcg Tablet) 1,000 mcg PO DAILY@0800 [facility] Last Admin: 02/14/21 07:41 Dose: 1,000 mcg Documented by: Famotidine (Famotidine 20 Mg Tablet) 20 mg PO DAILY PRN PRN Reason: Gas Fluticasone Propionate (Fluticasone 0.05% 1 [place] Nasal.Sry) 1 spray NASAL DAILY PRN PRN PRN Reason: ALLERGIES Sodium Chloride () 250 mls @ 15 mls/hr IV .[id number] PRN PRN Reason: Saline Flush Loratadine (Loratadine 10 Mg Tablet) 10 mg PO QHS [facility] Last Admin: 02/13/21 21:15 Dose: 10 mg Documented by: Multivitamins (Multivitamins,Therapeutic Tablet) 1 tablet PO DAILY@0800 [facility] Last Admin: 02/14/21 07:41 Dose: 1 tablet Documented by: Ondansetron HCl (Ondansetron 4 Mg/2 Ml Vial) 4 mg IV Q8H PRN PRN PRN Reason: NAUSEA Oxycodone HCl (Oxycodone 5 Mg Tablet) 2.5 mg PO Q4H PRN PRN PRN Reason: Pain Score 4-10 Promethazine HCl (Promethazine 25 Mg/Ml Syringe) 12.5 mg IM Q6H PRN PRN; Protocol PRN Reason: NAUSEA/VOMITING Senna/Docusate Sodium (Senna/Docusate Sodium 1 Tablet) 2 tablet PO BID [facility] Last Admin: 02/14/21 07:41 Dose: 2 tablet Documented by: Sodium Chloride (0.9% Saline Lock 10 Ml Syringe) 10 - 40 ml IV UD PRN PRN Reason: SALINE FLUSH Medical Necessity - Tobacco Use Smoking Status: Never smoker Tobacco Use: Non-smoker Assessment/Plan All Active Problems (Last Updated 03/23/19 @ 08:33 by Magaly Hickman) Cystocele with rectocele (Acute) Vaginal vault prolapse (Acute) s/p right TKR PT today and discharge home this afternoon
--- NOTE | 2021-02-14 09:12 | CASEMGMT ---
Social Work Note Per cook dessert questions, pt has completed HCPOA and LW, pt hasn't provided copies to [facility] and pt is unable to bring in copies. Nicole Shaw DIRECTOR OF SOCIAL WORK, CARAMEL MAKER
--- NOTE | 2021-02-14 11:45 | CASEMGMT ---
CLAY [place]IN Assessment: Face to Face with pt for initial transition planning/care coordination assessment. RN LISSETTE introduced self and role at [facility], pt voices understanding and consents to assessment. Pt is A/O x4 and answers all questions appropriately at this time. Pt lying in bed in no distress. Care providers, pharmacy, and demographics verified/updated. Admitting Dx: R robotic TK PCP: [facility] Specialists: jaskaran Collins Pharmacy: [facility] Retail while here at the hospital Insurance: MCR, [employer] Prescription Benefit: yes LW/HPOA: Pt states she has a LW and her DPOA is her daughter Stephanie. LNOK: Stephanie Mak, daughter; Doc Wesley, son; Flores Arizmendi, sister Living Arrangements: Pt lives with her son in a single story house with 2 steps to enter with a rail. Pt states she is I with ADL's and denies concerns at home. Transportation: Pt states she drives her self but has neighbors or her sister to drive while she cannot. Denies transportation concerns. DME/HHC/SNF: Pt states she has a wheeled walker, grab bars, shower seat and a grabber. Pt denies any previous HHC or SNF stays. Pt has her outpt therapy set up at [facility] to begin this Saturday. Pt states no concerns with going home at time of dc. Pt states no further concerns/needs. Advised pt to ask CM if any further question/concerns/needs arise, voices understanding. Pt Goal: Home Plan: Home with outpt therapy and family support, follow up plans in place.
[2021-02-14] MEDS: Famotidine 20 MG Tablet PO (13:19)
[2021-02-14] MEDS: oxyCODONE 5 MG Tablet 2.5 MG PO (13:26)
[2021-02-14 14:00] VITALS: BP 119/69; PULSE 86; RESP 18; TEMP 36.8; O2SAT 99
[2021-02-14 15:49] VITALS: BP 119/69; PULSE 86; RESP 18; TEMP 36.8; O2SAT 99
== END 2021-02-14 15:49 | disposition home or self-care (01) ==
LOC: SDC 09:57 → MS3 09:57
PROVIDERS: Anesthesiology; Admitting Provider Orthopaedic Surgery; PCP Family Medicine; Referring Provider Orthopaedic Surgery; Visit Provider Internal Medicine
PROC: 0SRC0JZ Replacement of Right Knee Joint with Synthetic Substitute, Open Approach (ICD-10-PCS; CPT 27447; principal; 2021-02-13 09:15)
DX: M17.11 Unilateral primary osteoarthritis, right knee (principal); Z20.828 Contact with and (suspected) exposure to other viral communicable diseases; G25.81 Restless legs syndrome; K21.9 Gastro-esophageal reflux disease without esophagitis; Z79.899 Other long term (current) drug therapy; M21.161 Varus deformity, not elsewhere classified, right knee
CPT/HCPCS: 01402; 27447; S2900; 36415; 73560; 80048; 82962; 83036; 83735; 85025; 85027; 87077; 87081; 87426; 88305; 88311; 93005; 96365; 96366; 97110; 97116; 97162; 97166; 97530; 97535; 99218; 99251; C1776; C9803; J7120; G0378; G0379; G0463

== ENCOUNTER → 2021-02-21 14:24 | Outpatient (CLI) | payer MEDICARE, OTHER, SELFPAY ==
[2021-02-13 08:08] VITALS: BMI 27.8
--- NOTE | 2021-02-21 14:26 | VDLE_ITS ---
Reason For Study: pain in RLE RIGHT GSV is normal. CFV is compressible, spontaneous, phasic, competent and demonstrates normal augmentation. FV is compressible, spontaneous, phasic, competent and demonstrates normal augmentation. POP V is compressible, spontaneous, phasic, competent and demonstrates normal augmentation. T/P Trunk is compressible. PTV is compressible. RT PerV is compressible. Procedure This is a venous duplex using B-mode, color flow and spectral Doppler. Exam performed in department. The exam was abbreviated due to the COVID 19 protocol. The exam was diagnostic. A preliminary report was called and/or faxed to Dr. Collins. VL/Venous Duplex US, Unilateral Interpretation Summary Deep veins of the right lower extremity are patent and compressible segmentally . There is no evidence of right lower extremity deep vein thrombosis. Valvular competence soledad ears intact within the proximal deep venous system on the right . The right great saphenous vein a ppears patent and compressible segmentally. Ordering Physician: Brian Collins Performed By: Esa Lopez RVT
== END ==
PROVIDERS: PCP Family Medicine; Referring Provider Orthopaedic Surgery; Visit Provider Orthopaedic Surgery
DX: M79.605 Pain in left leg (principal)
CPT/HCPCS: 93971

== ENCOUNTER → 2021-04-26 08:55 | Outpatient (CLI) | payer MEDICARE, OTHER, SELFPAY ==
[2021-02-13 08:08] VITALS: BMI 27.8
[2021-04-26 10:23] LABS: Absolute Lymphocyte Count 0.98 X10^3/uL (0.83-4.51); Absolute Neutrophil Count 2.8 X10^3/uL (2.0-7.7); Basophil# 0.04 X10^3/uL; Basophil% 0.9 % (0-1); Eosinophil# 0.15 X10^3/uL; Eosinophils% 3.3 % (0-5); Hematocrit 38.8 % (37-47); Lymphocyte # 0.98 X10^3/ul (0.83-4.51); Lymphocyte % 21.5 % (19-41); Mean Corp Hgb Conc 30.9 g/dL (32-36); Mean Corpuscular Volume 90.4 fL (81-99); Mean Platelet Vol. 10.8 fl (6.2-12.0); Monocyte# 0.55 X10^3/uL; Monocyte% 12.1 % (0-10); NRBC Flagged by Analyzer 0 % (0-5); Neutrophil # 2.82 X10^3/uL (2.7-7.7); Platelet Count 289 K/mm3 (150-450); RBC Distribution Width CV 12.9 % (11.6-14.6); RBC Distribution Width SD 42.5 fl (35.1-43.9); Red Blood Count 4.29 M/mm3 (4.2-5.4); White Blood Count 4.6 K/mm3 (4.4-11.0)
[2021-04-26 10:41] LABS: Vitamin B12 714 pg/mL (211-911); Vitamin D,25 Hydroxy 52.6 ng/mL
[2021-04-26 10:52] LABS: Hemoglobin A1c 5.5 % (3.8-5.6)
[2021-04-26 11:20] LABS: AST(SGOT) 26 U/L (15-37); Alanine Aminotransfer ALT/SGPT 19 U/L (13-56); Albumin, Serum 3.5 g/dL (3.2-5.0); Alkaline Phosphatase 102 U/L (45-117); Anion Gap 8 (5-15); BUN 16 mg/dL (7-18); BUN/Creat Ratio 23.2 RATIO (10-20); Calcium,Total 8.9 mg/dL (8.5-10.1); Chloride 105 mmol/L (98-107); Creatinine, Serum 0.69 mg/dL (0.55-1.02); EST Glomerular Filtration Rate 87 mL/min (>60); Est Glom Filt Rate - Afr Amer 105 mL/min (>60); Ferritin 18 ng/mL (8-252); Globulin 3.4 g/dL (2.2-4.2); Glucose 78 mg/dL (74-106); Iron 75 ug/dL (50-170); Iron Binding Capacity,Total 454 ug/dL (250-450); Potassium 4.2 mmol/L (3.5-5.1); Protein, Total 6.9 g/dL (6.4-8.2); Sodium Level 138 mmol/L (136-145); T4 Free Direct 0.98 ng/dL (0.76-1.46); Thyroid Stim Hormone (TSH) 2.41 uIU/mL (0.358-3.74)
== END ==
PROVIDERS: PCP Family Medicine; Referring Provider Family Medicine; Visit Provider Family Medicine
DX: D64.9 Anemia, unspecified (principal); R53.83 Other fatigue; R73.09 Other abnormal glucose; M81.0 Age-related osteoporosis without current pathological fracture
CPT/HCPCS: 36415; 80053; 82306; 82607; 82728; 82746; 83036; 83540; 83550; 84439; 84443; 85025

== ENCOUNTER → 2021-08-23 08:21 | Outpatient (CLI) | payer MEDICARE, OTHER, SELFPAY ==
[2021-08-23 10:28] LABS: Hemoglobin A1c 5.5 % (3.8-5.6)
[2021-08-23 10:32] LABS: Vitamin D,25 Hydroxy 40.2 ng/mL
[2021-08-23 10:35] LABS: ALB/GLOB Ratio 1.1 RATIO (0.9-2.4); AST(SGOT) 23 U/L (15-37); Alanine Aminotransfer ALT/SGPT 18 U/L (13-56); Albumin, Serum 3.5 g/dL (3.2-5.0); Alkaline Phosphatase 82 U/L (45-117); Anion Gap 7 (5-15); BUN 19 mg/dL (7-18); BUN/Creat Ratio 27.6 RATIO (10-20); Calcium,Total 9.2 mg/dL (8.5-10.1); Chloride 107 mmol/L (98-107); Creatinine, Serum 0.69 mg/dL (0.55-1.02); EST Glomerular Filtration Rate 87 mL/min (>60); Est Glom Filt Rate - Afr Amer 106 mL/min (>60); Globulin 3.2 g/dL (2.2-4.2); Glucose 93 mg/dL (74-106); Potassium 4.4 mmol/L (3.5-5.1); Protein, Total 6.7 g/dL (6.4-8.2); Sodium Level 139 mmol/L (136-145)
== END ==
PROVIDERS: PCP Family Medicine; Referring Provider Family Medicine; Visit Provider Family Medicine
DX: R73.02 Impaired glucose tolerance (oral) (principal); M81.0 Age-related osteoporosis without current pathological fracture
CPT/HCPCS: 36415; 80053; 82306; 83036

== ENCOUNTER 2021-10-05 16:07 | Emergency (ER) | payer MEDICARE, OTHER, SELFPAY ==
[2021-10-05 16:08] VITALS: BP 183/87; PULSE 98; RESP 18; TEMP 36.6; O2SAT 98; BMI 28.3
--- NOTE | 2021-10-05 16:20 | RAD_ITS ---
STUDY: X-RAY - LEFT WRIST REASON FOR EXAM: Female, 80 years old. Injury, pain of the wrist TECHNIQUE: 3 view(s) of the wrist were obtained. COMPARISON: None. FINDINGS: Nondisplaced transverse fracture of the distal radius with longitudinal component extending to the articular surface. Ulnar styloid fractures also demonstrated. Fracture extends to the distal radioulnar joint. Normal distal radioulnar articulation. Normal carpal bones. Normal carpal articulations. There is degenerative arthrosis of the carpometacarpal articulation of the thumb. Normal second through fifth carpometacarpal articulations. Normal visualized metacarpal bones. Soft tissue swelling. RAD/Wrist min 3 Views IMPRESSION: 1. Distal radial fracture with articular surface involvement. 2. Ulnar styloid fracture. Electronically Signed: Alejandro Kinney MD (Brooks) at 17:55 EST , Service support ,
--- NOTE | 2021-10-05 16:20 | RAD_ITS ---
STUDY: X-RAY - LEFT RADIUS AND ULNA REASON FOR EXAM: Female, 80 years old. pain TECHNIQUE: 2 view(s) of the forearm. COMPARISON: None. FINDINGS: An acute mildly comminuted impaction fracture of the distal radial metaphysis and articular surface is present with minimal displacement. An acute fracture through the tip of the ulnar styloid is also present. The bony structures are demineralized. Mild soft tissue swelling is present. Degenerative changes are seen at the base of the metacarpal bone of the thumb. RAD/Forearm 2 Views IMPRESSION: 1. Acute mildly comminuted fracture the distal radial metaphysis 2. Acute ulnar styloid fracture Electronically Signed: Juan Francisco Mcgrath MD at 17:36 EST , Service support ,
--- NOTE | 2021-10-05 16:20 | EDS_ITS ---
HPI History of Present Illness Chief Complaint: Upper Extremity Injury Narrative Narrative: Patient is a 80-year-old female who approximately 2 hours ago was backing up in her kitchen. She states she accidentally stepped on the cat which caused her to lose her balance and she fell. She states as she fell her arms went out to the side and she struck her left forearm on the kitchen counter. She denies striking her head or any loss of consciousness or blood thinner use. She states she had pain and swelling to the wrist/forearm since the injury and has concern for fracture and therefore comes in for evaluation [facility] Medical History Normal colonoscopy Home Medications krill 1,000 mg-omega-3 230 mg-dha 60 he-iyu-axzthazmj-astaxan capsule 1 cap PO DAILY 03/12/19 [History Last Taken Unknown] multivitamin 1 cap PO DAILY 03/12/19 [History Last Taken Unknown] ascorbic acid (vitamin C) 500 mg PO DAILY 09/22/19 [History Last Taken Unknown] cyanocobalamin (vitamin B-12) 1,000 mcg PO DAILY@0800 09/22/19 [History Last Taken Unknown] acetaminophen 500 mg PO Q6H PRN PRN 10/05/20 [History Last Taken Unknown] betamethasone dipropionate 45 gm TP PRN PRN 10/05/20 [History Last Taken Unknown] biotin 5 mg PO DAILY 10/05/20 [History Last Taken Unknown] cetirizine 10 mg PO QHS 10/05/20 [History Last Taken Unknown] calcium carbonate-vitamin D3 1 each PO DAILY 01/27/21 [History Last Taken Unknown] famotidine 20 mg PO PRN PRN 01/27/21 [History Last Taken 02/13/21 05:20 20 MG] Allergy/AdvReac Type Severity Reaction Status Date / Time nabumetone Allergy Severe throat Verified 10/05/21 16:10 closing, Itching,hives to throat omeprazole Allergy Unknown Unknown Verified 10/05/21 16:10 Sulfa (Sulfonamide Allergy Unknown Unknown Verified 10/05/21 16:10 Antibiotics) diclofenac sodium Allergy Unknown Verified 10/05/21 16:10 [From Arthrotec] hydrochlorothiazide Allergy Hives Verified 10/05/21 16:10 [From Dyazide] misoprostol [From Arthrotec] Allergy Unknown Verified 10/05/21 16:10 sulfabenzamide Allergy Rash Verified 10/05/21 16:10 triamterene [From Dyazide] Allergy Hives Verified 10/05/21 16:10 Family History Father Cancer Dementia Stomach ulcer Mother CVA (cerebral vascular accident) Dementia Sister Breast cancer Surgical History cataract surgery eye lid surgery H/O carpal tunnel repair H/O left knee surgery H/O: hysterectomy History of cholecystectomy Hx of appendectomy r shoulder surgery Social History (Updated 04/08/19 @ 14:34 by Cira Mosley NP, [employer]) Smoking Status: Never smoker alcohol intake: current alcohol intake frequency: holidays/special occasions only substance use type: does not use what type of physical activity do you participate in: walking seatbelt use: always do you feel safe at home: Yes ROS ROS ED Constitutional Constitutional ED: Denies chills or fever(s) Eyes Eyes: Denies change in vision Cardiovascular Cardiovascular: Denies chest pain Respiratory/Chest Respiratory/Chest: Denies cough or dyspnea Gastrointestinal Gastrointestinal: Denies abdominal pain, diarrhea, nausea or vomiting Genitourinary Genitourinary ED: Denies dysuria Musculoskeletal Musculoskeletal: Reports other Details: Positive left wrist/forearm pain ; Denies myalgias Integumentary Denies Abrasions or rash Neurologic Neurologic: Denies headache(s) or paresthesias Hematologic/Lymphatic Hematologic/Lymphatic: Denies easy bleeding or easy bruising EXAM Physical Exam Const Vital Signs: 10/05/21 16:08 Temperature 98 F Temperature Source Temporal Pulse Rate 98 Respiratory Rate 18 Blood Pressure 183/87 H Blood Pressure Mean 119 Pulse Ox 98 Oxygen Delivery Method Room Air Positive well nourished and well developed General Appearance ED: well developed HEENT HEENT Narrative: No signs of depressed or basilar skull fracture Eyes PERRL and EOMs intact bilaterally Neck full ROM and supple Neck Narrative: No bony deformity or step-off of the cervical spine no midline pain on palpation General: Negative for tenderness Chest Wall palpation of chest normal Resp normal respiratory effort and clear to auscultation bilaterally Cardio regular rate and regular rhythm Back/Spine Back/Spine Narrative: No bony deformity or step-off of the thoracic or lumbar spine no midline pain with palpation Extremity Extremity Narrative: Left upper extremity is neurovascularly intact; AIN/PIN are intact and normal. Active range of motion is slightly decreased secondary to pain. There is soft tissue swelling on the dorsal aspect of the distal left forearm with pain with palpation at the site but no obvious bony deformity. No joint effusion noted. No ligamentous or tendon laxity. No pain in the anatomical snuffbox. Remainder of the exam is normal Neuro oriented x3, CN's II-XII intact bilaterally and moves all extremities Sensorium / Orientation: alert Psych mental status grossly normal Skin no rashes or lesions noted Skin Narrative: Soft tissue swelling to the left distal forearm as documented above but no ecchymosis or abrasions noted Lesions: no lesions Rashes: no rashes Trauma: Negative for abrasion MDM MDM MDM Narrative Medical decision making narrative: Patient presented with a mechanical fall therefore I felt there was no need for a cardiac or syncope work-up. She also did not strike her head or have loss of conscious or take blood thinners there is no need for head CT. X-rays were obtained of the forearm and wrist and show a nondisplaced fracture to the distal radius consistent with her exam. Therefore the patient was placed in a Ortho-Glass splint as documented below and can follow-up with orthopedics for repeat evaluation and to discuss need for casting Patient had a Ortho-Glass volar splint applied to the left forearm. The splint fit with good approximation of the fracture fragments. Following application capillary refill remained less than 3 seconds. Patient tolerated procedure well without complication. Discharge Plan Triage Chief Complaint: Upper Extremity Injury ED Provider: Apolinar Martinez Dx/Rx/DC Orders Clinical Impression: Closed fracture of distal end of left radius Instructions: Splint Care, ED Fracture, Wrist, General Prescriptions: No Action [id number]-ast [MegaRed [place]-3 Krill Oil] 1,000-230-60 mg capsule 1 cap PO DAILY RF: 0 multivitamin capsule capsule 1 cap PO DAILY RF: 0 cyanocobalamin (vitamin B-12) 500 MCG tablet 1,000 mcg PO DAILY@0800 RF: 0 ascorbic acid (vitamin C) 500 MG capsule 500 mg PO DAILY RF: 0 cetirizine 10 MG tablet 10 mg PO QHS RF: 0 acetaminophen 500 MG tablet 500 mg PO Q6H PRN PRN (Reason: Pain 1-10 Or Fever) RF: 0 betamethasone dipropionate 15 GM cream 45 gm TP PRN PRN (Reason: PSORIASIS) RF: 0 biotin 5 MG tablet 5 mg PO DAILY RF: 0 famotidine 20 MG tablet 20 mg PO PRN PRN (Reason: Indigestion) RF: 0 calcium carbonate-vitamin D3 1 EACH tablet,chewable 1 each PO DAILY RF: 0 Primary Care Provider: Aneudy Joshi Referrals: Aneudy Joshi MD [Primary Care Provider] - Mumtaz Portillo DO [STAFF PHYSICIAN] - 3-5 Days (Distal radius fracture) Disposition Disposition: Home, Self Care
== END 2021-10-05 18:17 | disposition home or self-care (01) ==
PROVIDERS: Emergency Provider Emergency Medicine; PCP Family Medicine
DX: S52.502A Unspecified fracture of the lower end of left radius, initial encounter for closed fracture (principal); S52.612A Displaced fracture of left ulna styloid process, initial encounter for closed fracture; W19.XXXA Unspecified fall, initial encounter; Y93.9 Activity, unspecified; Y92.9 Unspecified place or not applicable
CPT/HCPCS: 29125; 73090; 73110; 99282

== ENCOUNTER 2022-02-20 08:38 | Outpatient (CLI) | payer MEDICARE, OTHER, SELFPAY ==
[2022-02-21 13:18] LABS: Absolute Neutrophil Count 3.8 X10^3/uL (2.0-7.7); Basophil# 0.06 X10^3/uL; Eosinophil# 0.23 X10^3/uL; Eosinophils% 3.9 % (0-5); Hematocrit 41.5 % (37-47); Hemoglobin 13.4 g/dL (12.0-15.0); Lymphocyte % 20.4 % (19-41); Mean Corp Hgb Conc 32.3 g/dL (32-36); Mean Corpuscular Hgb 29.6 pg (27.0-32.0); Mean Corpuscular Volume 91.6 fL (81-99); Mean Platelet Vol. 10.6 fl (6.2-12.0); Monocyte# 0.58 X10^3/uL; Monocyte% 9.9 % (0-10); NRBC Flagged by Analyzer 0.3 % (0-5); Neutrophil % 64.6 % (47-70); Platelet Count 268 K/mm3 (150-450); RBC Distribution Width CV 13.5 % (11.6-14.6); RBC Distribution Width SD 45.4 fl (35.1-43.9); Red Blood Count 4.53 M/mm3 (4.2-5.4); White Blood Count 5.9 K/mm3 (4.4-11.0)
[2022-02-21 13:29] LABS: ALB/GLOB Ratio 1.2 RATIO (0.9-2.4); AST(SGOT) 22 U/L (15-37); Alanine Aminotransfer ALT/SGPT 25 U/L (13-56); Albumin, Serum 3.8 g/dL (3.2-5.0); Alkaline Phosphatase 83 U/L (45-117); Anion Gap 3 (5-15); BUN 12 mg/dL (7-18); BUN/Creat Ratio 17.7 RATIO (10-20); Calcium,Total 8.7 mg/dL (8.5-10.1); Chloride 104 mmol/L (98-107); Creatinine, Serum 0.68 mg/dL (0.55-1.02); EST Glomerular Filtration Rate 89 mL/min (>60); Est Glom Filt Rate - Afr Amer 107 mL/min (>60); Globulin 3.2 g/dL (2.2-4.2); Glucose 85 mg/dL (74-106); Potassium 4.4 mmol/L (3.5-5.1); Sodium Level 135 mmol/L (136-145)
[2022-02-21 13:33] LABS: Vitamin D,25 Hydroxy 65.7 ng/mL
[2022-02-21 13:42] LABS: Hemoglobin A1c 5.6 % (3.8-5.6)
== END 2022-02-20 23:59 | disposition home or self-care (01) ==
LOC: MFPLAB 08:42
PROVIDERS: PCP Family Medicine; Referring Provider Family Medicine; Visit Provider Family Medicine
DX: Z00.00 Encounter for general adult medical examination without abnormal findings (principal); M81.0 Age-related osteoporosis without current pathological fracture; R73.02 Impaired glucose tolerance (oral)
CPT/HCPCS: 36415; 80053; 82306; 83036; 85025

== ENCOUNTER → 2022-08-22 | Outpatient (CLI) | payer MEDICARE, OTHER, SELFPAY ==
[2022-08-22 12:55] LABS: Vitamin B12 613 pg/mL (211-911); Vitamin D,25 Hydroxy 43.6 ng/mL
[2022-08-22 12:57] LABS: ALB/GLOB Ratio 1.1 RATIO (0.9-2.4); AST(SGOT) 18 U/L (15-37); Alanine Aminotransfer ALT/SGPT 22 U/L (13-56); Albumin, Serum 3.7 g/dL (3.2-5.0); Alkaline Phosphatase 90 U/L (45-117); Anion Gap 7 (5-15); BUN 12 mg/dL (7-18); BUN/Creat Ratio 19.6 RATIO (10-20); Calcium,Total 9.3 mg/dL (8.5-10.1); Chloride 104 mmol/L (98-107); Creatinine, Serum 0.61 mg/dL (0.55-1.02); EST Glomerular Filtration Rate 100 mL/min (>60); Est Glom Filt Rate - Afr Amer 121 mL/min (>60); Globulin 3.5 g/dL (2.2-4.2); Glucose 91 mg/dL (74-106); Potassium 4.4 mmol/L (3.5-5.1); Protein, Total 7.2 g/dL (6.4-8.2); Sodium Level 136 mmol/L (136-145); Thyroid Stim Hormone (TSH) 1.99 uIU/mL (0.358-3.74)
[2022-08-22 13:07] LABS: Hemoglobin A1c 5.6 % (3.8-5.6)
== END | disposition home or self-care (01) ==
LOC: MFPLAB 10:10
PROVIDERS: PCP Family Medicine; Referring Provider Family Medicine; Visit Provider Family Medicine
DX: M81.0 Age-related osteoporosis without current pathological fracture (principal); R41.3 Other amnesia; R73.02 Impaired glucose tolerance (oral)
CPT/HCPCS: 36415; 80053; 82306; 82607; 83036; 84443

== ENCOUNTER → 2022-09-13 | Outpatient (CLI) | payer MEDICARE, OTHER, SELFPAY ==
--- NOTE | 2022-09-13 08:40 | RAD_ITS ---
STUDY: X-RAY - ESOPHAGUS (BARIUM SWALLOW) WITH FLUOROSCOPY REASON FOR EXAM: Female, 81 years old. DYSPHAGIA TECHNIQUE: 14 view(s) of the esophagus were obtained following swallowing of barium. FLUOROSCOPY TIME (if supplied): (32nd) minutes/seconds COMPARISON: None. FINDINGS: There is no demonstrated esophageal foreign body. There is no demonstrated stricture or mucosal abnormality. Normal gastroesophageal junction, without a demonstrated hiatal hernia. The patient ingested a 12 mm tablet of barium without any difficulty. There is atherosclerotic calcification of the aortic arch with tortuosity of the descending aorta. Normal visualized pulmonary parenchyma. There are degenerative changes of the visualized thoracic spine. RAD/Esophagus Dual Contrast IMPRESSION: Normal plain film x-ray examination (barium swallow) of the esophagus. Electronically Signed: Steve Sanchez MD at 11:10 EDT ,
== END | disposition home or self-care (01) ==
LOC: RAD 08:28
PROVIDERS: PCP Family Medicine; Referring Provider Family Medicine; Visit Provider Family Medicine
DX: R13.10 Dysphagia, unspecified (principal)
CPT/HCPCS: 74221

== ENCOUNTER 2022-11-05 11:05 | Emergency (ER) | payer MEDICARE, OTHER, SELFPAY ==
[2022-11-05 11:05] VITALS: BP 163/72; PULSE 79; RESP 16; TEMP 36.4; O2SAT 99; BMI 26.5
--- NOTE | 2022-11-05 11:24 | VDLE_ITS ---
Reason For Study: LEG SWELLING RIGHT LEFT GSV is normal. CFV is compressible, spontaneous, phasic, CFV is compressible, spontaneous, phasic, competent, and demonstrates normal competent and demonstrates normal augmentation. augmentation. FV is compressible, spontaneous, phasic, competent and demonstrates normal augmentation. POP V is compressible, spontaneous, phasic, competent and demonstrates normal augmentation. T/P Trunk is compressible. PTV is compressible. RT PerV is compressible. Nonvascularized vascular structure noted in the popliteal fossa measuring approximently 3.88cm x 0.79cm. Procedure This is a venous duplex using B-mode, color flow and spectral Doppler. Exam performed portable in ED. The exam was diagnostic. A preliminary report was called and/or faxed to Dr. Bradford. VL/Venous Duplex US, Unilateral Interpretation Summary There is no evidence of right lower extremity deep vein thrombosis. Right great saphenous vein appears patent and compressible segmentally. Right popliteal fossa 3.88 x 0.79 cm non-vascular structure consistent with a Leal's cyst Normal flow patterns left common femoral vein Ordering Physician: Nayan Bradford Referring Physician: Aneudy Joshi Performed By: Hayes Watters RVT
--- NOTE | 2022-11-05 11:26 | EDS_ITS ---
HPI History of Present Illness Chief Complaint: Lower Extremity Injury Detail of Chief Complaint: Pain and swelling right lower extremity, atraumatic Informant: patient Occured/Mechanism Mechanism/Context: Yes other see comment below Comment: There is no history of trauma. Patient presents because of swelling of her right leg and foot. Onset/Context/Timing Context: Sudden Onset Timing: Continuous Quality of Pain: Aching Location: Right calf Current Severity: Mild Maximum Severity: Moderate Worsened by: Palpation Relieved by: Nothing Associated Symptoms Associated Symptoms: Negative for Parasthesia, Weakness or Loss of Funtion Narrative Narrative: Patient is an 81-year-old woman who presents with atraumatic right leg and foot swelling with discoloration. There is a bruise noted mid lateral right calf. She denies history of PE or DVT. She is had no recent travel. Has not been as active. She is status post right total knee arthroplasty several years ago. She denies chest pain. She denies shortness of breath. She denies dyspnea on exertion. She also denies orthopnea PND. There is no history of pelvic cancer. Tetanus Immunization: 5-10 years Prior similar symptoms: No Recent Illness/Hospitalization: No PFSH PFS Medical History Normal colonoscopy Home Medications krill 1,000 mg-omega-3 230 mg-dha 60 lk-mzb-fbjivsmty-astaxan capsule (MegaRed [place]-3 Krill Oil) 1 cap PO DAILY 03/12/19 [History Last Taken Unknown] multivitamin 1 cap PO DAILY 03/12/19 [History Last Taken Unknown] ascorbic acid (vitamin C) 500 mg capsule 500 mg PO DAILY 09/22/19 [History Last Taken Unknown] cyanocobalamin (vitamin B-12) 500 mcg tablet 1,000 mcg PO DAILY@0800 09/22/19 [History Last Taken Unknown] acetaminophen 500 mg tablet 500 mg PO Q6H PRN PRN Pain 1-10 Or Fever 10/05/20 [History Last Taken Unknown] betamethasone dipropionate 0.05 % topical cream 45 gm TP PRN PRN PSORIASIS 10/05/20 [History Last Taken Unknown] biotin 5 mg tablet 5 mg PO DAILY 10/05/20 [History Last Taken Unknown] cetirizine 10 mg tablet 10 mg PO QHS 11/25/20 [History Last Taken Unknown] calcium carbonate 600 mg-vitamin D3 10 mcg (400 unit) chewable tablet 1 each PO DAILY 01/27/21 [History Last Taken Unknown] famotidine 20 mg tablet 20 mg PO PRN PRN Indigestion 01/27/21 [History Last Taken 02/13/21 05:20 20 MG] Allergy/AdvReac Type Severity Reaction Status Date / Time nabumetone Allergy Severe throat Verified 10/05/21 16:10 closing, Itching,hives to throat omeprazole Allergy Unknown Unknown Verified 10/05/21 16:10 Sulfa (Sulfonamide Allergy Unknown Unknown Verified 10/05/21 16:10 Antibiotics) diclofenac sodium Allergy Unknown Verified 10/05/21 16:10 [From Arthrotec] hydrochlorothiazide Allergy Hives Verified 10/05/21 16:10 [From Dyazide] misoprostol [From Arthrotec] Allergy Unknown Verified 10/05/21 16:10 sulfabenzamide Allergy Rash Verified 10/05/21 16:10 triamterene [From Dyazide] Allergy Hives Verified 10/05/21 16:10 Family History Father Cancer Dementia Stomach ulcer Mother CVA (cerebral vascular accident) Dementia Sister Breast cancer Surgical History cataract surgery eye lid surgery H/O carpal tunnel repair H/O left knee surgery H/O: hysterectomy History of cholecystectomy Hx of appendectomy r shoulder surgery Social History (Updated 11/05/22 @ 11:[address] Nayan Bradford MD) household members: none Smoking Status: Never smoker alcohol intake: current alcohol intake frequency: holidays/special occasions only substance use type: does not use what type of physical activity do you participate in: walking seatbelt use: always do you feel safe at home: Yes ROS ROS ED Constitutional Constitutional ED: Denies chills, fever(s), subjective, sweats or weight loss Eyes Eyes: Denies blurry vision, change in vision or diplopia ENT ENT ED: Denies ear pain, rhinorrhea or sore throat Cardiovascular Cardiovascular: Denies chest pain, orthopnea, palpitations, paroxysmal nocturnal dyspnea or racing heartbeat Respiratory/Chest Respiratory/Chest: Denies cough, dyspnea, dyspnea on exertion, orthopnea or paroxysmal nocturnal dyspnea Neurologic Neurologic: Denies paresthesias or weakness Hematologic/Lymphatic Hematologic/Lymphatic: Denies easy bleeding, easy bruising or lymphadenopathy EXAM Physical Exam Const Vital Signs: 11/05/22 11:05 Temperature 97.6 F L Temperature Source Temporal Pulse Rate 79 Respiratory Rate 16 Blood Pressure 163/72 H Blood Pressure Mean 102 Pulse Ox 99 Oxygen Delivery Method Room Air Positive well nourished and well developed General Appearance ED: well developed and NAD HEENT Reports moist mucous membranes HEENT Narrative: Ears normal. Nares patent. Mucosa moist. normocephalic and atraumatic Eyes Eyes Narrative: Pupils equal round reactive. Ocular muscle tach. Sclera is anicteric Neck full ROM Resp normal respiratory effort, no retractions and clear to auscultation bilaterally Cardio regular rate and regular rhythm Extremity Negative for normal to inspection Extremity Narrative: There is swelling of the right lower extremity compared to the left. There is pitting edema of the foot. DP and PT pulse are palpable on the left. They are not palpable on the right due to the edema. There is leg vein distention. There is tenderness along the distribution deep venous system i.e. posterior right calf. This is not where bruises noted. There is no pain the patient and the abductor canal. There is no evidence of cellulitis. General Extremety ED: Yes edema; Negative for cyanosis or weight-bearing difficulty General Extremity: edema; Negative for cyanosis or weight-bearing difficulty Neuro oriented x3, CN's II-XII intact bilaterally and moves all extremities Plantar Reflex: Downgoing: bilateral Psych mental status grossly normal Skin no wounds Skin Narrative: Bruise mid lateral right calf. Lesions: no lesions Rashes: no rashes MDM MDM MDM Narrative Medical decision making narrative: Patient's DVT well score is positive. Since patient has moderate pretest probability D-dimer was not ordered and a noninvasive vascular study was obtained to rule out DVT. Otherwise this may be due to lymphedema from decreased activity. Suspect it is present on the right only because she has had a total knee arthroplasty and probably disrupted the lymphatics. Venous duplex study reveals a Leal's cyst on the right. There is no clot. Patient was made aware of this. Should be discharged to home. 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], right knee, Dependent lymphedema, Contusion of right calf Instructions: ED Leal's Cyst, ED Lymphedema Prescriptions: No Action [id number]-sza-[id number]-ast [MegaRed [place]-3 Krill Oil] 1,000-230-60 mg capsule 1 cap PO DAILY multivitamin capsule capsule 1 cap PO DAILY cyanocobalamin (vitamin B-12) 500 MCG tablet 1,000 mcg PO DAILY@0800 ascorbic acid (vitamin C) 500 MG capsule 500 mg PO DAILY cetirizine 10 MG tablet 10 mg PO QHS acetaminophen 500 MG tablet 500 mg PO Q6H PRN PRN (Reason: Pain 1-10 Or Fever) betamethasone dipropionate 15 GM cream 45 gm TP PRN PRN (Reason: PSORIASIS) biotin 5 MG tablet 5 mg PO DAILY famotidine 20 MG tablet 20 mg PO PRN PRN (Reason: Indigestion) calcium carbonate-vitamin D3 1 EACH tablet,chewable 1 each PO DAILY Primary Care Provider: Aneudy Joshi Referrals: Aneudy Joshi MD [Primary Care Provider] - Brian Collins DO [Med Staff - Active Staff] - 1-2 Weeks Disposition Disposition: Home, Self Care
== END 2022-11-05 12:34 | disposition home or self-care (01) ==
PROVIDERS: Emergency Provider Emergency Medicine; PCP Family Medicine; Visit Provider Emergency Medicine
DX: M71.21 Synovial cyst of popliteal space [Baker], right knee (principal); I89.0 Lymphedema, not elsewhere classified; S80.11XA Contusion of right lower leg, initial encounter; X58.XXXA Exposure to other specified factors, initial encounter
CPT/HCPCS: 93971; 99282

== ENCOUNTER → 2022-11-13 | Outpatient (CLI) | payer MEDICARE, OTHER, SELFPAY ==
[2022-11-13 12:59] LABS: ALB/GLOB Ratio 1.3 RATIO (0.9-2.4); AST(SGOT) 19 U/L (15-37); Alanine Aminotransfer ALT/SGPT 22 U/L (13-56); Albumin, Serum 3.8 g/dL (3.2-5.0); Alkaline Phosphatase 76 U/L (45-117); Anion Gap 8 (5-15); BUN 14 mg/dL (7-18); BUN/Creat Ratio 23.8 RATIO (10-20); Calcium,Total 9.3 mg/dL (8.5-10.1); Chloride 103 mmol/L (98-107); Creatinine, Serum 0.59 mg/dL (0.55-1.02); EST Glomerular Filtration Rate 104 mL/min (>60); Est Glom Filt Rate - Afr Amer 126 mL/min (>60); Globulin 2.9 g/dL (2.2-4.2); Glucose 97 mg/dL (74-106); Potassium 4.3 mmol/L (3.5-5.1); Protein, Total 6.7 g/dL (6.4-8.2); Sodium Level 136 mmol/L (136-145); Thyroid Stim Hormone (TSH) 2.03 uIU/mL (0.358-3.74)
[2022-11-13 13:20] LABS: Hemoglobin A1c 5.4 % (3.8-5.6)
[2022-11-13 13:53] LABS: Vitamin D,25 Hydroxy 50.1 ng/mL
== END | disposition home or self-care (01) ==
LOC: MFPLAB 10:36
PROVIDERS: PCP Family Medicine; Referring Provider Family Medicine; Visit Provider Family Medicine
DX: R73.02 Impaired glucose tolerance (oral) (principal); L65.9 Nonscarring hair loss, unspecified; M81.0 Age-related osteoporosis without current pathological fracture
CPT/HCPCS: 36415; 80053; 82306; 83036; 84443

== ENCOUNTER 2023-05-15 11:31 | Day surgery (SDC) | payer MEDICARE, OTHER, SELFPAY ==
[2023-05-15] MEDS: Lactated Ringers 1,000 ML 15 ML IV (10:55)
[2023-05-15 11:56] VITALS: BP 145/94; PULSE 86; RESP 16; TEMP 37.2; O2SAT 99; BMI 27.1
--- NOTE | 2023-05-15 12:13 | PCM.HP.BLA ---
History and Physical Date of Admission: 05/15/23 Chief Complaint: acid reflux Details: PHYLLIS STINSON, is a 82 F who presents to the office today to establish with Gastroenterology for flare of acid reflux for several months at least. Normal esophagram 09/2022. Hx of acid reflux which didn't bother her for quite some time. She gets heartburn, regurgitation, nausea in the morning which resolves with PPI. She also has some dysphagia. Notes bloating of epigastrium. Taking pantoprazole 40 mg daily which helps, and added famotidine qhs. Still needs TUMS. Denies early satiety. No weight change. Can occas have what she describes as gallbladder attack of bloating, RUQ discomfort, diarrhea--but she is s/p cholecystectomy. Otherwise no bowel complaints. No constipation, melena, hematochezia. Colonoscopy is up to date. Sister has upcoming surgery at [facility] for intestinal blockage. Exam Const General: cooperative, healthy appearing and comfortable Orientation: alert, awake and oriented x3 HENMT Head: normal to inspection Eyes Sclera: sclerae normal Resp Effort & Inspection: normal respiratory effort GI Inspection: normal to inspection Palpation: soft, no hepatosplenomegaly, no masses and nontender Quality Reporting Tobacco Screening ([facility] 138) Smoking Status: Never smoker Assessment and Plan Assessment and Plan (1) GERD (gastroesophageal reflux disease): Status: Chronic Plan: 82 yr old female with acid reflux, dysphagia, nausea. DDx includes esophagitis, gastritis, PUD, bile reflux, gastroparesis. Continue PPI. Will scheduled EGD w/ office f/u 2 wks later. I have examined the patient and the H&P has been reviewed. There are no clinical changes since date of exam.
--- NOTE | 2023-05-15 12:15 | EGD_PTH ---
PATIENT: MILADPHYLLIS A LOC: EN U#:[id number] AGE/SX: 82/F ROOM: RE05/15/[address]: Dr. Jimenez Fuller DO : 1940 BED: DIS: 05/15/2023 SPEC #: [id number] RECD: 05/15/23 13:55 STATUS: LISA AZUCENA #: [id number] KIT: 05/15/23 12:[address]: Jimenez Fuller DEPT: SURGICAL PATHOLOGY RECD BY: Al Padilla ENTERED: 05/16/23 08:35 SP TYPE: EGD BIOPSY OT DR: Dr. Aneudy Joshi MD Tissues: A - Gastric mucous membrane B - Duodenum, NOS C - Esophagus, NOS Procedures: Special Stain Group II Surgery Specimen Level IV Alcian Blue/PAS (control) HEADER OPERATION: EGD (MAC), biopsy PRE-OP DIAGNOSIS: GERD TISSUE SUBMITTED: A - Gastric body biopsy, B - Duodenum biopsy, C - Random esophagus biopsy MICROSCOPIC DIAGNOSIS A. Gastric body, biopsy: Moderate gastritis. See microscopic description and comment. B. Duodenum, biopsy: Fragments of duodenal mucosa, no pathologic diagnosis. C. Esophagus, random biopsy: Fragments of gastroesophageal mucosa with chronic inflammation. Intestinal metaplasia (goblet cell metaplasia) not identified. See comment. SJ:martita 05/17/2023 COMMENT A. The results of immunohistochemistry for Helicobacter pylori will be reported separately ([id number]). C. Alcian blue/PAS stain with matched control is used in the evaluation of the specimen. MICROSCOPIC DESCRIPTION Slides are reviewed. A. The specimen shows fragments of gastric mucosa with chronic inflammatory cell infiltrates in the lamina propria consisting of lymphocytes and plasma cells, consistent with moderate chronic gastritis. GROSS DESCRIPTION A - Received in fixative is one container labeled with the patient's name and designated gastric body biopsy. The specimen consists of multiple irregular fragments of light pope soft tissue that in aggregate measure 1.0 x 0.5 x 0.1 cm. The specimen is totally submitted in one cassette. B - Received in fixative is one container labeled with the patient's name and designated duodenum biopsy. The specimen consists of two irregular fragments of light pope soft tissue that in aggregate measure 0.6 x 0.2 x 0.1 cm. The specimen is totally submitted in one cassette. C - Received in fixative is one container labeled with the patient's name and designated random esophagus biopsy. The specimen consists of multiple irregular fragments of light pope soft tissue that in aggregate measure 0.8 x 0.8 x 0.1 cm. The specimen is totally submitted in one cassette. / AM:martita 05/16/2023 TC:2 CPT: 14804 x3, 83327
--- NOTE | 2023-05-15 12:15 | IMM_PTH ---
PATIENT: PHYLLIS STINSON A LOC: EN U#:[id number] AGE/SX: 82/F ROOM: RE05/15/[address]: Dr. Jimenez Fuller DO : 1940 BED: DIS: 05/15/2023 SPEC #: [id number] RECD: 05/16/23 13:56 STATUS: LISA RELety #: [id number] KIT: 05/15/23 12:[address]: Jimenez Fuller DEPT: IMMUNOHISTOCHEMISTRY RECD BY: Debora Nunez ENTERED: 05/16/23 13:59 SP TYPE: IMMUNO OTHR DR: Dr. Aneudy Joshi MD Tissues: A - Stomach, NOS Procedures: H Pylori (initial) PHYSICIAN & INSTITUTION [place] [id number] SPECIMEN INFORMATION: Tissue Source: A - Gastric body Clinical Info: GERD Specimen Number: [id number] CPT code: 72359 METHODOLOGY: Deparaffinized sections of prefer/formalin-fixed tissue or PAP/DQ stained slides are incubated with monoclonal/polyclonal antibodies/oligonucleotide probes. Localization is made via biotin free immunoperoxidase method. Appropriate controls are performed and reacted as expected. Results on target cell population are indicated in the following table: RESULTS: ANTIBODY / CLONE RESULT Block A H Pylori (polyclonal) negative These tests were developed and their performance characteristics determined by [facility]. They may not have been cleared or approved by the U.S. Food and Drug Administration. The FDA has determined that such clearance or approval is not necessary. The above immunohistochemical/dualISH markers are ordered and reviewed by the Pathologist. INTERPRETATION: A. Gastric body, biopsy: Negative for Helicobacter pylori organisms. AM:martita 05/17/2023
[2023-05-15 13:10] VITALS: BP 137/94; BP 145/94; PULSE 103; RESP 18; TEMP 36.3; O2SAT 93
[2023-05-15 13:15] VITALS: BP 132/71; BP 145/94; PULSE 95; RESP 16; O2SAT 94
--- NOTE | 2023-05-15 13:18 | OP.EGD_ITS ---
Patient Name: Elise Colunga Procedure Date: 05/15/2023 12:14 PM Date of : 1940 Age: 82 Procedure: Upper GI endoscopy Indications: Epigastric abdominal pain, Dysphagia Providers: Jimenez Fuller DO Referring MD: Jimenez Fuller DO Medicines: Monitored Anesthesia Care Patient Profile: This is an 82 year old female. Refer to note in patient chart for documentation of history and physical. Patient has symptoms. Complications: No immediate complications. Procedure: Pre-Anesthesia Assessment: - Prior to the procedure, a History and Physical was performed, and patient medications and allergies were reviewed. The risks and benefits of the procedure and the sedation options and risks were discussed with the patient. All questions were answered and informed consent was obtained. Patient identification and proposed procedure were verified by the physician in the pre-procedure area. Mental Status Examination: alert and oriented. Airway Examination: normal oropharyngeal airway and neck mobility. Respiratory Examination: clear to auscultation. CV Examination: normal. Prophylactic Antibiotics: The patient does not require prophylactic antibiotics. Prior Anticoagulants: The patient has taken no previous anticoagulant or antiplatelet agents. ASA Grade Assessment: II - A patient with mild systemic disease. After reviewing the risks and benefits, the patient was deemed in satisfactory condition to undergo the procedure. The anesthesia plan was to use monitored anesthesia care (MAC). Immediately prior to administration of medications, the patient was re-assessed for adequacy to receive sedatives. The heart rate, respiratory rate, oxygen saturations, blood pressure, adequacy of pulmonary ventilation, and response to care were monitored throughout the procedure. The physical status of the patient was re-assessed after the procedure. After obtaining informed consent, the endoscope was passed under direct vision. Throughout the procedure, the patient's blood pressure, pulse, and oxygen saturations were monitored continuously. The gastroscope was introduced through the mouth, and advanced to the second part of duodenum. The upper GI endoscopy was accomplished without difficulty. The patient tolerated the procedure well. Scope In: 12:59:22 PM Scope Out: 1:03:35 PM Total Procedure Duration Time 0 hours 4 minutes 13 seconds Findings: LA Grade A (one or more mucosal breaks less than 5 mm, not extending between tops of 2 mucosal folds) esophagitis with no bleeding was found 36 to 38 cm from the incisors. Biopsies were taken with a cold forceps for histology. Verification of patient identification for the specimen was done. Estimated blood loss was minimal. Mucosal changes including ringed esophagus, longitudinal furrows and small-caliber esophagus were found in the middle third of the esophagus and in the lower third of the esophagus. Biopsies were obtained from the proximal and distal esophagus with cold forceps for histology of suspected eosinophilic esophagitis. Verification of patient identification for the specimen was done. Estimated blood loss was minimal. A moderate Schatzki ring was found in the lower third of the esophagus. A guidewire was placed and the scope was withdrawn. Dilation was performed with a Savary dilator with no resistance at 45 Fr. The dilation site was examined and showed mild improvement in luminal narrowing. Estimated blood loss was minimal. A medium-sized hiatal hernia was present. Diffuse severe inflammation characterized by erosions, erythema, friability and granularity was found in the gastric body. Biopsies were taken with a cold forceps for histology. Verification of patient identification for the specimen was done. Estimated blood loss was minimal. Diffuse moderately erythematous mucosa without active bleeding and with no stigmata of bleeding was found in the duodenal bulb and in the first portion of the duodenum. Biopsies were taken with a cold forceps for histology. Verification of patient identification for the specimen was done. Estimated blood loss was minimal. Impression: - LA Grade A reflux esophagitis. Biopsied. - Esophageal mucosal changes secondary to eosinophilic esophagitis. Biopsied. - Moderate Schatzki ring. Dilated. - Medium-sized hiatal hernia. - Acute gastritis. Biopsied. - Erythematous duodenopathy. Biopsied. Recommendation: - Discharge patient to home. - Resume previous diet. - Continue present medications. - Await pathology results. -Increase pantoprazole to 40 mg p.o. twice daily and take Carafate 1 g p.o. every 6 hours. Procedure Code(s): --- Professional --- 66328, Esophagogastroduodenoscopy, flexible, transoral; with insertion of guide wire followed by passage of dilator(s) through esophagus over guide wire 54148, 59, Esophagogastroduodenoscopy, flexible, transoral; with biopsy, single or multiple CPT copyright 2017 [employer]. All rights reserved. The codes documented in this report are preliminary and upon him coder review may be revised to meet current compliance requirements. Jimenez Fuller DO 05/15/2023 1:18:18 PM This report has been signed electronically. Number of Addenda: 0 Note Initiated On: 05/15/2023 12:14 PM
--- NOTE | 2023-05-15 13:19 | OP.CCLET_ITS ---
05/15/2023 Aneudy Joshi [address] [place] [address] Re : Upper GI endoscopy procedure for Aprilder Dear Dr. Joshi This procedure was performed on Monday, May 15, 2023. My impressions and recommendations are as follows: Impressions : - LA Grade A reflux esophagitis. Biopsied. - Esophageal mucosal changes secondary to eosinophilic esophagitis. Biopsied. - Moderate Schatzki ring. Dilated. - Medium-sized hiatal hernia. - Acute gastritis. Biopsied. - Erythematous duodenopathy. Biopsied. Recommendations : - Discharge patient to home. - Resume previous diet. - Continue present medications. - Await pathology results. -Increase pantoprazole to 40 mg p.o. twice daily and take Carafate 1 g p.o. every 6 hours. My findings are described in the full procedure note, which is enclosed. If I can be of further assistance, please feel free to contact me at . Sincerely, Jimenez Fuller, 05/15/2023 1:18:18 PM This report has been signed electronically.
[2023-05-15 13:20] VITALS: BP 114/64; BP 145/94; PULSE 72; RESP 16; O2SAT 96
[2023-05-15 13:25] VITALS: BP 126/70; BP 145/94; PULSE 69; RESP 16; TEMP 36.6; O2SAT 96
[2023-05-15 13:38] VITALS: BP 145/94
== END 2023-05-15 14:00 | disposition home or self-care (01) ==
LOC: EN 11:32 → AC 11:35
PROVIDERS: PCP Family Medicine; Referring Provider Family Medicine; Visit Provider Internal Medicine Gastroenterology
PROC: 0DJ08ZZ Inspection of Upper Intestinal Tract, Via Natural or Artificial Opening Endoscopic (ICD-10-PCS; CPT 43235; principal; 2023-05-15 12:10)
DX: K21.00 Gastro-esophageal reflux disease with esophagitis, without bleeding (principal); R13.10 Dysphagia, unspecified; R14.0 Abdominal distension (gaseous); K29.00 Acute gastritis without bleeding; K44.9 Diaphragmatic hernia without obstruction or gangrene; Z90.49 Acquired absence of other specified parts of digestive tract
CPT/HCPCS: 43239; 43248; 88305; 88313; 88342; J7120; J2405

== ENCOUNTER → 2023-05-29 | Outpatient (CLI) | payer MEDICARE, OTHER, SELFPAY ==
[2023-05-29 10:14] LABS: Absolute Lymphocyte Count 1.15 X10^3/uL (0.83-4.51); Absolute Neutrophil Count 2.9 X10^3/uL (2.0-7.7); Basophil# 0.04 X10^3/uL; Basophil% 0.9 % (0-1); Eosinophil# 0.12 X10^3/uL; Eosinophils% 2.6 % (0-5); Hematocrit 40.3 % (37-47); Hemoglobin 12.9 g/dL (12.0-15.0); Lymphocyte # 1.15 X10^3/ul (0.83-4.51); Lymphocyte % 24.8 % (19-41); Mean Corpuscular Hgb 30.5 pg (27.0-32.0); Mean Corpuscular Volume 95.3 fL (81-99); Mean Platelet Vol. 10.6 fl (6.2-12.0); Monocyte# 0.46 X10^3/uL; Monocyte% 9.9 % (0-10); NRBC Flagged by Analyzer 0 % (0-5); Neutrophil # 2.85 X10^3/uL (2.7-7.7); Neutrophil % 61.4 % (47-70); Platelet Count 242 K/mm3 (150-450); RBC Distribution Width CV 12.4 % (11.6-14.6); RBC Distribution Width SD 43.4 fl (35.1-43.9); Red Blood Count 4.23 M/mm3 (4.2-5.4); White Blood Count 4.6 K/mm3 (4.4-11.0)
[2023-05-29 11:05] LABS: AST(SGOT) 17 U/L (15-37); Alanine Aminotransfer ALT/SGPT 18 U/L (13-56); Albumin, Serum 3.5 g/dL (3.2-5.0); Alkaline Phosphatase 74 U/L (45-117); Anion Gap 5 (5-15); BUN 10 mg/dL (7-18); BUN/Creat Ratio 14.7 RATIO (10-20); Calcium,Total 9.1 mg/dL (8.5-10.1); Chloride 102 mmol/L (98-107); Creatinine, Serum 0.68 mg/dL (0.55-1.02); EST Glomerular Filtration Rate 88 mL/min (>60); Est Glom Filt Rate - Afr Amer 107 mL/min (>60); Globulin 3.4 g/dL (2.2-4.2); Glucose 96 mg/dL (74-106); Potassium 4.3 mmol/L (3.5-5.1); Protein, Total 6.9 g/dL (6.4-8.2); Sodium Level 135 mmol/L (136-145)
[2023-05-29 23:21] LABS: Hemoglobin A1c 5.6 % (3.8-5.6)
== END | disposition home or self-care (01) ==
LOC: MFPLAB 08:27
PROVIDERS: PCP Family Medicine; Visit Provider Family Medicine
DX: R73.02 Impaired glucose tolerance (oral) (principal); K21.9 Gastro-esophageal reflux disease without esophagitis
CPT/HCPCS: 36415; 80053; 83036; 85025

== ENCOUNTER → 2023-05-30 | Outpatient (CLI) | payer MEDICARE, OTHER, SELFPAY ==
[2023-05-30 16:13] LABS: Vitamin B12 432 pg/mL (211-911)
[2023-06-05 22:12] LABS: VITAMIN B6 17.8 ug/L (3.4-65.2); Vitamin B1, Thiamine 140.9 nmol/L (66.5-200.0)
== END | disposition home or self-care (01) ==
LOC: MFPLAB 12:06
PROVIDERS: PCP Family Medicine; Visit Provider Family Medicine
DX: G62.9 Polyneuropathy, unspecified (principal)
CPT/HCPCS: 36415; 82607; 84207; 84425

== ENCOUNTER → 2023-06-21 | Outpatient (CLI) | payer MEDICARE, OTHER, SELFPAY ==
[2023-06-26 00:07] LABS: Beef <0.10 kU/L (Class 0); Chocolate <0.10 kU/L (Class 0); Clam <0.10 kU/L (Class 0); Codfish <0.10 kU/L (Class 0); Corn <0.10 kU/L (Class 0); Egg, White 0.44 kU/L (Class I); Egg, Whole 0.48 kU/L (Class I); Milk (Cow) 0.66 kU/L (Class II); Peanut 0.14 kU/L (Class 0/I); Pork <0.10 kU/L (Class 0); SCALLOP <0.10 kU/L (Class 0); SESAME SEED 0.19 kU/L (Class 0/I); Shrimp <0.10 kU/L (Class 0); Soybean 0.15 kU/L (Class 0/I); Walnut, (Food) <0.10 kU/L (Class 0); Wheat 0.17 kU/L (Class 0/I)
== END | disposition home or self-care (01) ==
LOC: LAB 09:12
PROVIDERS: PCP Family Medicine; Referring Provider Internal Medicine Gastroenterology; Visit Provider Internal Medicine Gastroenterology
DX: K21.9 Gastro-esophageal reflux disease without esophagitis (principal)
CPT/HCPCS: 36415; 86003; 86005

== ENCOUNTER → 2023-07-04 | Outpatient (CLI) | payer MEDICARE, OTHER, SELFPAY ==
--- NOTE | 2023-07-04 08:23 | NM_ITS ---
CLINICAL: 82-year-old female with history of clinical gastroparesis. SEMI-SOLID PHASE 99m Tc SULFUR COLLOID GASTRIC EMPTYING STUDY COMPARISON: None available FINDINGS: The patient was administered 1.2 mCi of 99m Tc sulfur colloid mixed with oatmeal and consumed per os. Image acquisitions in the anterior-posterior projections were obtained for 60 minutes. There is prompt visualization of the stomach. There is no gastroesophageal reflux identified. The T ? raw data emptying was calculated to be 35.61 minutes, (Normal: 12-56 minutes). NM/Gastric Emptying Study IMPRESSION: 1. NORMAL 99m Tc sulfur colloid semi-solid phase (oatmeal) gastric emptying imaging examination. A. There is normal and preserved semi-solid phase gastric emptying compared to normal controls. (Ankita et al, J Nucl Med Tech 38: 186, 2010). Electronically Signed: Renny Alas, at 23:02 EDT ,
== END | disposition home or self-care (01) ==
LOC: NM 08:23
PROVIDERS: PCP Family Medicine; Referring Provider Internal Medicine Gastroenterology; Visit Provider Internal Medicine Gastroenterology
DX: K21.9 Gastro-esophageal reflux disease without esophagitis (principal)
CPT/HCPCS: 78264; A9541

== ENCOUNTER 2023-08-01 09:26 | Outpatient (RCR) | payer MEDICARE, OTHER, SELFPAY | END 2023-08-10 23:59 | LOC: NS 09:26 | PROVIDERS: PCP Family Medicine; Referring Provider Internal Medicine Gastroenterology; Visit Provider Internal Medicine Gastroenterology | DX: Z71.3 Dietary counseling and surveillance (principal); E66.3 Overweight; Z91.018 Allergy to other foods | CPT/HCPCS: 97802 ==

== ENCOUNTER → 2024-01-07 | Outpatient (CLI) | payer MEDICARE, OTHER, SELFPAY ==
[2024-01-07 15:29] LABS: Absolute Lymphocyte Count 0.98 X10^3/uL (0.83-4.51); Absolute Neutrophil Count 3.6 X10^3/uL (2.0-7.7); Basophil# 0.05 X10^3/uL; Basophil% 0.9 % (0-1); Eosinophil# 0.14 X10^3/uL; Eosinophils% 2.6 % (0-5); Hematocrit 41.1 % (37-47); Hemoglobin 13.1 g/dL (12.0-15.0); Lymphocyte # 0.98 X10^3/ul (0.83-4.51); Lymphocyte % 18.4 % (19-41); Mean Corp Hgb Conc 31.9 g/dL (32-36); Mean Corpuscular Hgb 29.2 pg (27.0-32.0); Mean Corpuscular Volume 91.7 fL (81-99); Mean Platelet Vol. 10.4 fl (6.2-12.0); Monocyte# 0.56 X10^3/uL; Monocyte% 10.5 % (0-10); NRBC Flagged by Analyzer 0 % (0-5); Neutrophil # 3.58 X10^3/uL (2.7-7.7); Neutrophil % 67.4 % (47-70); Platelet Count 292 K/mm3 (150-450); RBC Distribution Width CV 12.3 % (11.6-14.6); RBC Distribution Width SD 41.3 fl (35.1-43.9); Red Blood Count 4.48 M/mm3 (4.2-5.4); White Blood Count 5.3 K/mm3 (4.4-11.0)
[2024-01-07 16:06] LABS: Hemoglobin A1c 5.8 % (3.8-5.6)
[2024-01-07 16:07] LABS: ALB/GLOB Ratio 1.1 RATIO (0.9-2.4); AST(SGOT) 26 U/L (15-37); Alanine Aminotransfer ALT/SGPT 19 U/L (13-56); Albumin, Serum 3.7 g/dL (3.2-5.0); Alkaline Phosphatase 112 U/L (45-117); Anion Gap 8 (5-15); BUN 12 mg/dL (7-18); BUN/Creat Ratio 16.9 RATIO (10-20); Calcium,Total 9.4 mg/dL (8.5-10.1); Chloride 101 mmol/L (98-107); Creatinine, Serum 0.71 mg/dL (0.55-1.02); EST Glomerular Filtration Rate 84 mL/min (>60); Est Glom Filt Rate - Afr Amer 101 mL/min (>60); Globulin 3.5 g/dL (2.2-4.2); Glucose 69 mg/dL (74-106); Potassium 4.1 mmol/L (3.5-5.1); Protein, Total 7.2 g/dL (6.4-8.2); Sodium Level 134 mmol/L (136-145)
[2024-01-07 16:13] LABS: Vitamin D,25 Hydroxy 47.6 ng/mL
== END | disposition home or self-care (01) ==
LOC: MFPLAB 11:24
PROVIDERS: PCP Family Medicine; Visit Provider Family Medicine
DX: R73.02 Impaired glucose tolerance (oral) (principal); M81.0 Age-related osteoporosis without current pathological fracture
CPT/HCPCS: 36415; 80053; 82306; 83036; 85025

== ENCOUNTER → 2024-03-13 | Outpatient (CLI) | payer MEDICARE, OTHER, SELFPAY ==
--- NOTE | 2024-03-13 06:48 | MRI_ITS ---
STUDY: MRI BRAIN WITH AND WITHOUT CONTRAST REASON FOR EXAM: Female, 83 years old. Inability to walk. Drop foot, positive babinski reflexes TECHNIQUE: Standardized multiplanar fat and water weighted pulse sequences were obtained. IV 14 cc Clariscan was administered for the contrast portion of the examination. COMPARISON: None. FINDINGS: There is mild cerebral atrophy with widening of the extra-axial spaces and ventricular dilatation. There are a limited number of small white matter hyperintensities, distributed throughout the deep white matter tracts of the cerebral hemispheres, consistent with mild chronic white matter ischemic changes. There is no evidence for recent intracranial ischemia or other cause of cytotoxic edema on diffusion weighted imaging (DWI). Normal T2* images of the brain without demonstrated susceptibility artifact. There is no demonstrated hemosiderin stain. Normal bilateral basal ganglia. Normal thalami. There is no extra-axial fluid accumulation. Normal flow voids within the major intracranial circulation suggesting patency by spin echo criteria. Normal venous enhancement. There is no enhancing intra-axial or extra-axial abnormality. Normal sella turcica, pituitary gland, infundibular stalk, optic chiasm and hypothalamus. Normal tectal plate and pineal gland. Normal midbrain, ricky and medulla. Normal cerebellum. Normal basal cisterns. Normal bilateral temporal bones. Normal bilateral internal auditory canals. There are bilateral ocular lens implants with otherwise normal intraorbital contents. Mucosal retention cyst or polyp of the right maxillary sinus. Normal calvarium and skull base. Normal visualized soft tissue structures. Normal visualized upper cervical spine. MRI/Brain W/WO Contrast IMPRESSION: Involutional changes of the brain, as described above. No acute intracranial abnormality. Electronically Signed: Slade Guzman MD at 10:21 EDT ,
[2024-03-13 07:14] LABS: CREATININE FINGERSTICK < 1.0 mg/dL (0.55-1.02); EGFR FINGERSTICK > 60.0000 mL/min (>60)
== END | disposition home or self-care (01) ==
LOC: MRI 06:26
PROVIDERS: PCP Family Medicine; Referring Provider Family Medicine; Visit Provider Family Medicine
DX: R29.2 Abnormal reflex (principal)
CPT/HCPCS: 70553; A9575

== ENCOUNTER → 2024-05-22 | Outpatient (CLI) | payer MEDICARE, OTHER, SELFPAY ==
[2024-05-22 12:23] LABS: Absolute Lymphocyte Count 1.28 X10^3/uL (0.83-4.51); Absolute Neutrophil Count 2.7 X10^3/uL (2.0-7.7); Basophil# 0.04 X10^3/uL; Basophil% 0.9 % (0-1); Eosinophil# 0.16 X10^3/uL; Eosinophils% 3.4 % (0-5); Hematocrit 38.1 % (37-47); Hemoglobin 12.3 g/dL (12.0-15.0); Lymphocyte # 1.28 X10^3/ul (0.83-4.51); Lymphocyte % 27.5 % (19-41); Mean Corp Hgb Conc 32.3 g/dL (32-36); Mean Corpuscular Hgb 29.8 pg (27.0-32.0); Mean Corpuscular Volume 92.3 fL (81-99); Mean Platelet Vol. 10.1 fl (6.2-12.0); Monocyte# 0.48 X10^3/uL; Monocyte% 10.3 % (0-10); NRBC Flagged by Analyzer 0 % (0-5); Neutrophil # 2.69 X10^3/uL (2.7-7.7); Neutrophil % 57.7 % (47-70); Platelet Count 256 K/mm3 (150-450); RBC Distribution Width CV 12.8 % (11.6-14.6); RBC Distribution Width SD 43.1 fl (35.1-43.9); Red Blood Count 4.13 M/mm3 (4.2-5.4); White Blood Count 4.7 K/mm3 (4.4-11.0)
[2024-05-22 12:48] LABS: ALB/GLOB Ratio 1.1 RATIO (0.9-2.4); AST(SGOT) 19 U/L (15-37); Alanine Aminotransfer ALT/SGPT 17 U/L (13-56); Albumin, Serum 3.6 g/dL (3.2-5.0); Alkaline Phosphatase 97 U/L (45-117); Anion Gap 6 (5-15); BUN 14 mg/dL (7-18); Calcium,Total 9.2 mg/dL (8.5-10.1); Chloride 105 mmol/L (98-107); Creatinine, Serum 0.78 mg/dL (0.55-1.02); EST Glomerular Filtration Rate 76 mL/min (>60); Est Glom Filt Rate - Afr Amer 91 mL/min (>60); Globulin 3.3 g/dL (2.2-4.2); Glucose 92 mg/dL (74-106); Protein, Total 6.9 g/dL (6.4-8.2); Sodium Level 137 mmol/L (136-145)
[2024-05-22 12:54] LABS: Vitamin D,25 Hydroxy 41.1 ng/mL
[2024-05-22 23:42] LABS: Hemoglobin A1c 5.5 % (3.8-5.6)
== END | disposition home or self-care (01) ==
LOC: MFPLAB 10:51
PROVIDERS: PCP Family Medicine; Visit Provider Family Medicine
DX: R73.02 Impaired glucose tolerance (oral) (principal); M81.0 Age-related osteoporosis without current pathological fracture
CPT/HCPCS: 36415; 80053; 82306; 83036; 85025

== ENCOUNTER → 2024-08-10 | Outpatient (CLI) | payer MEDICARE, OTHER, SELFPAY ==
[2024-08-10 12:14] LABS: Absolute Lymphocyte Count 1.01 X10^3/uL (0.83-4.51); Absolute Neutrophil Count 3.5 X10^3/uL (2.0-7.7); Basophil# 0.05 X10^3/uL; Basophil% 0.9 % (0-1); Eosinophil# 0.19 X10^3/uL; Eosinophils% 3.5 % (0-5); Hematocrit 38.1 % (37-47); Hemoglobin 12.3 g/dL (12.0-15.0); Lymphocyte # 1.01 X10^3/ul (0.83-4.51); Lymphocyte % 18.8 % (19-41); Mean Corp Hgb Conc 32.3 g/dL (32-36); Mean Corpuscular Volume 92.9 fL (81-99); Mean Platelet Vol. 10.3 fl (6.2-12.0); Monocyte# 0.59 X10^3/uL; NRBC Flagged by Analyzer 0 % (0-5); Neutrophil # 3.51 X10^3/uL (2.7-7.7); Neutrophil % 65.4 % (47-70); Platelet Count 261 K/mm3 (150-450); RBC Distribution Width CV 12.9 % (11.6-14.6); RBC Distribution Width SD 44.1 fl (35.1-43.9); White Blood Count 5.4 K/mm3 (4.4-11.0)
[2024-08-10 12:18] LABS: Erythrocyte Sedimentation Rate 4 mm/hr (0-30)
[2024-08-10 13:17] LABS: CRP < 2.90 mg/L (0.0-3.0)
== END | disposition home or self-care (01) ==
LOC: MFPLAB 10:50
PROVIDERS: PCP Family Medicine; Visit Provider Physician Assistant
DX: Z96.652 Presence of left artificial knee joint (principal)
CPT/HCPCS: 36415; 85025; 85652; 86140

== ENCOUNTER → 2024-11-25 | Outpatient (CLI) | payer MEDICARE, OTHER, SELFPAY ==
--- NOTE | 2024-11-25 12:52 | CT_ITS ---
CT LEFT LOWER EXTREMITY WITH 3-D IMAGING CLINICAL INDICATION: PRE OP TECHNIQUE: Axial CT images of the left lower extremity (including left hip, left knee, and left ankle) was performed without IV contrast material. Coronal and sagittal reformats were provided. The protocol utilizes one or more of the following dose reduction techniques: automated exposure control, adjustment of mA and/or kV according to patient size, and/or use of iterative reconstruction technique. RADIATION DOSAGE (If Supplied By Facility): CTDIvol = ( 18.76 ) mGy, DLP = ( 1066.98 ) mGycm COMPARISON: Left knee radiographs dated 10/28/2012. FINDINGS: Bones: There is moderate degenerative arthrosis of the left hip joint. There is a unicompartment prosthesis of the medial femorotibial compartment of the left knee. There is severe degenerative arthrosis of the patellofemoral compartment of the left knee and mild degenerative arthrosis of the lateral femorotibial compartment of the left knee. Unremarkable left ankle. Osseous structures are intact without evidence of fracture or dislocation. No lytic or blastic osseous masses. Soft Tissues: There is a small left knee joint effusion. The deep soft tissue structures are unremarkable. The superficial soft tissues are unremarkable without evidence of edema, hematoma, or foreign body. CT/Extremity Lower without Contra IMPRESSION: Unicompartment prosthesis of the medial femorotibial compartment of the left knee. Severe degenerative arthrosis of the patellofemoral compartment of the left knee and mild degenerative arthrosis of the lateral femorotibial compartment of the left knee. Small left knee joint effusion. Electronically Signed: Jermaine Mojica MD at 14:37 EST ,
== END | disposition home or self-care (01) ==
PROVIDERS: PCP Family Medicine; Referring Provider Specialist; Visit Provider Specialist
DX: Z96.652 Presence of left artificial knee joint (principal); M17.0 Bilateral primary osteoarthritis of knee
CPT/HCPCS: 73700

== ENCOUNTER 2024-12-14 13:06 | Inpatient (IN) | payer MEDICARE, OTHER, SELFPAY ==
[2024-11-25 14:51] LABS: Absolute Lymphocyte Count 1.01 X10^3/uL (0.83-4.51); Absolute Neutrophil Count 3.2 X10^3/uL (2.0-7.7); Basophil# 0.03 X10^3/uL; Basophil% 0.6 % (0-1); Eosinophil# 0.25 X10^3/uL; Hematocrit 40.7 % (37-47); Hemoglobin 13.3 g/dL (12.0-15.0); Lymphocyte # 1.01 X10^3/ul (0.83-4.51); Lymphocyte % 20.1 % (19-41); Mean Corp Hgb Conc 32.7 g/dL (32-36); Mean Corpuscular Hgb 29.7 pg (27.0-32.0); Mean Corpuscular Volume 90.8 fL (81-99); Mean Platelet Vol. 10.3 fl (6.2-12.0); Monocyte# 0.56 X10^3/uL; Monocyte% 11.2 % (0-10); NRBC Flagged by Analyzer 0 % (0-5); Neutrophil # 3.16 X10^3/uL (2.7-7.7); Neutrophil % 62.9 % (47-70); Platelet Count 239 K/mm3 (150-450); RBC Distribution Width CV 12.9 % (11.6-14.6); RBC Distribution Width SD 43.4 fl (35.1-43.9); Red Blood Count 4.48 M/mm3 (4.2-5.4)
[2024-11-25 15:51] LABS: Magnesium 2.2 mg/dL (1.6-2.6)
[2024-11-25 15:59] LABS: Albumin, Serum 3.6 g/dL (3.2-5.0); Anion Gap 7 (5-15); BUN 13 mg/dL (7-18); BUN/Creat Ratio 19.4 RATIO (10-20); Calcium,Total 9.3 mg/dL (8.5-10.1); Chloride 103 mmol/L (98-107); Creatinine, Serum 0.67 mg/dL (0.55-1.02); EST Glomerular Filtration Rate 89 mL/min (>60); Est Glom Filt Rate - Afr Amer 108 mL/min (>60); Glucose 87 mg/dL (74-106); Potassium 4.3 mmol/L (3.5-5.1); Sodium Level 137 mmol/L (136-145)
--- NOTE | 2024-12-10 14:30 | HP.PCM_ITS ---
History and Physical History and Physical Patient Name: Elise Colunga : 1940From:? LEYDI FINCH PA-C DATE OF PRE-OPERATIVE EXAM: 12/09/2024 DATE OF SURGERY:? 12/14/2024 SCHEDULED PROCEDURE:? Left knee conversion from unilateral arthroplasty to a total knee arthroplasty HISTORY OF PRESENT ILLNESS: Preoperative history and physical exam was performed on December 09, 2024.? This is a 84-year-old female who has had ongoing worsening pain since September 2024.? Patient has had a previous left unicompartmental knee replacement by Dr. Cristofer Manjarrez on October 28, 2012.? Patient's pain can reach as high as a 10/10.? Patient's pain has been intermittent, aching, sharp and stabbing.? Pain is been progressively been getting worse.? She has increased pain going up and down stairs, walking, and sitting.? Patient denies any trauma to the left knee.? 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 Patient has difficulty with activities of daily living including housework and shopping.? She has attempted knee brace without relief.? She has difficulty getting in and out of the chair.? She has attempted rest, elevation with minimal relief.? She has tried home exercises with no relief.? She has tried oral medications including Tylenol.? She has attempted Aleve without relief.? She does get grinding and catching sensation going up and down stairs.? She uses a walker and a cane for ambulatory assistance.? Patient has had previous falls due to the severe neuropathy and dropfoot on the right.? Based on imaging studies has had progression of osteoarthritis with the left knee.? Patient has obtain surgical clearance from the primary care provider Dr. Joshi.? Patient has medical history pertinent for pre-Diabetes with A1c 5.6, gastroesophageal reflux disease, sleep apnea, osteoporosis.? She denies previous DVT or pulmonary embolism.? No recent chest pain or shortness of breath.? No recent fevers, chills or recent infections.? After failing conservative measures and discussing all treatment options was Dr. Alec Nance, the patient does wish to proceed with a left knee conversion from uni-lateral arthroplasty to a left total knee arthroplasty. REVIEW OF SYSTEMS: Review Of Systems: Constitutional: Reports difficulty sleeping, but denies anorexia, change in appetite, fever and weight change. Cardiovasular: Reports heart murmur, but denies chest pain, irregular heartbeat and peripheral vascular disease. Respiratory: Denies asthma, cough, pneumonia, sleep apnea, shortness of breath, tuberculosis and wheezing. Gastrointestinal: Denies constipation, diarrhea, heartburn, nausea, rectal itching, bloody stools and vomiting. Genitourinary: Denies female genital problems. Denies incontinence. Musculoskeletal: Reports leg swelling, trouble walking and weakness, but denies pain. Skin: Denies Raynaud's, history of shingles and tattoo. Neurological: Reports difficulty with balance and numbness but denies ambulatory dysfunction, dizziness, numbness/tingling and tremor. Psychiatric: Denies anxiety, depression, insomnia, mental illness and stress. Hematologic/Lymphatic: Denies anemia, bleeding/bruising tendency and past transfusion. Reviewed and updated. PAST MEDICAL HISTORY: Advance Care Plan: Other Directive, POA Effective Date: 04/15/2017 Other Directive, LIVING WILL Effective Date: 04/15/2017 Past Medical History: Medical Problems: Arthritis, Acid Reflux, Hard of Hearing, Psoriasis, Osteoporosis Diabetes - pre heart murmur, First-degree atrioventricular block varicose veins - bilaterally Sleep Apnea Accidents: Fracture - RT 4TH METATARSAL FX Fracture - (10/05/2021) LT ARM Surgical Hx: Appendectomy - AGE 7 - [facility] Hysterectomy - (1971) [facility] RT CTR - X3 @[facility] BY DR. VIOLETA LUQUE BETWEEN 1979 & 1987 LT CTR - x1 @[facility] BY DR. LUQUE BETWEEN 1979 & 1987 RT Shoulder Calcium Removed Gallbladder - 3-4 YRS AGO @[facility] Eye Lid Surgery - (2010) Eye Lid Surgery - (02/20/2012) LT Uni Knee - (10/28/2012) JWG @ [facility] RT Cataract Removed - (03/2013) Prolapse Bladder - (2018) Herniated Rectum - (2018) RT Total Knee Replacement - (02/13/2021) MSK @ [facility] Cataract Surgery - (07/2022) LT Anesthesia Complications: Nausea Assistive Devices: Dentures, Glasses, Hearing Aid, Walker Reviewed and updated. SOCIAL HISTORY: Social History: Marital: .Occupation: Retired.Work Status: Retired.Hand Dominance: Right-handed. Personal Habits:? Tobacco Use: Patient has never smoked.Cigarette Use: Never.Smokeless Tobacco: Never Used Smokeless Tobacco.E-Cigarette Use: Never used.Alcohol: Occasionally.Drug Use: Denies Use.Enjoy Exercising: Exercises 1-3 X/Week. Reviewed and updated. VITALS: Ht: 60.5 Wt: 146lb Wt k.226 BMI: 28.0 BP: 120/80 Pulse: 85 Resp: 16 T: 97.5 T: 36.4C Pain Level: 6 O2SatR: 99 ALLERGIES: Sulfabenzamide Arthrotec Dyazide Nabumetone - Rash Omeprazole Diclofenac Sodium Colestipol Colestipol MEDICATIONS: Caltrate 600+D3 Soft 600-20 MG-mcg daily, Cetirizine HCL 10 mg at bedtime, Acetaminophen 500 mg every 6 hours as needed, Betamethasone Dipropionate 0.05 % as needed, Ascorbic Acid CR 500 mg daily, Multi-Vitamin? 1 tab po bid, Vitamin B-12 1000 mcg 1 by mouth every day, Aleve 220 mg 1 tablet by mouth once a day, Oxybutynin Chloride ER 10 mg 1 po qdaily, Famotidine 20 mg 1 by mouth every day, Fluticasone Propionate Nasal [place] 24- Hour 50 mcg/Act as directed, Pantoprazole Sodium 40 mg 1 po qdaily, Myrbetriq 50 mg 1 by mouth every day, Nasacort Allergy 24HR 55 mcg/Act in the morning PRE-OP EXAM: General appearance:NORMAL? Other: Eyes: Conjunctivae and lids: NORMAL? Pupils: ERR Ears, Nose, Mouth, and Throat: NORMAL? Other: Inspection of lips, teeth and gums: NORMAL?? Other: Neck: Examination of neck: no masses noted. Respiratory: Assessment of respiratory effort: NORMAL?? Other: ? Auscultation of lungs: clear to auscultation no wheezes, rhonchi or rales. Cardiovascular:? Auscultation of heart: regular rate and rhythm, positive systolic murmur PHYSICAL EXAMINATION: On exam patient does walk with an antalgic gait.? Left knee incision is well- healed without any edema or signs of infection.? She has moderate effusion.? She walks with a varus thrust.? Range of motion: 0 extension to 110 flexion.? Sensation intact to light touch. IMAGING STUDIES: Previous x-rays of the left knee reveal stable medial unicompartmental knee replacement which is well fixed.? There is good alignment of the knee.? On the sunrise view patient has had progression of osteoarthritis consistent with severe stage IV bone on bone joint space narrowing with subchondral sclerosis and osteophyte formation. IMPRESSION: 1.? Painful left unicompartmental knee replacement 2.? Presence of right total knee arthroplasty February 17, 2021 3.? Gastroesophageal reflux disease 4.? Prediabetes with most recent A1c 5.6 5.? Sleep apnea 6.? Osteoporosis 7.? Overweight with BMI 28.0 PLAN: Dr. Alec Nance did discuss and review with the patient all treatment options including surgical versus nonsurgical options.? I will continue plan established by Dr. Alec Nance.? Patient does wish to proceed with the above-stated procedure.? Potential risks, benefits, and complications of the procedure were discussed in detail including but not limited to , infection, nerve and blood vessel damage, persistent pain, numbness, tingling, paresthesias, blood clot, pulmonary embolism, and requirement for possible further surgery.? The patient expressed full understanding and has no further questions for the doctor.? Patient does agree to proceed with the above-stated procedure and has signed the surgery consent form. POST-OP MEDICATION PLAN: Pain Medications:? Postoperative pain regimen will be initiated by Dr. Alec Nance in the hospital.? Due to revision patient will be placed on doxycycline for 2 weeks postoperatively.? I did advised patient on potential side effects including hypersensitivity to the sunlight and should take appropriate precautions.? Recommend probiotic while on the antibiotic.? She will bring her walker to the hospital. DVT Prophylaxis:? Aspirin 81 mg twice daily for 4 weeks postoperatively.? Denies past history of DVT or pulmonary embolism This dictation was created using voice recognition software. Phonetic and/or grammatical errors may exist. ___? I have re-examined the patient.? There are no clinical changes since date of exam. ___? See progress notes for changes. ___? Dictated on admission Date: ? Time: Signature:
--- NOTE | 2024-12-10 16:45 | PAT.ANE_ITS ---
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 When Was Last Pacemaker Check QUESTION #4 FULL TEXT: You/Your Family Experience fever (hyperthermia) with Anesthesia Last Oral Intake Last Oral intake: Last Oral Intake NPO since Meds taken in AM with sips of water? Meds patient instructed to take am of surgery PONV PONV - storage solutions architect: PONV - storage solutions architect Female Yes 11/23/24 11:19 HX of Motion Sickness No 11/23/24 11:19 HX of N/V After Surgery Yes 11/23/24 11:19 Non-Smoker Yes 11/23/24 11:19 Duration of Surgery greater Yes 11/23/24 11:19 than 60 minutes Number of Risk Factors 4 11/23/24 11:19 PONV Score Severe Risk 11/23/24 11:19 Height & Weight Height & Weight: Anesthesia: Height & Weight Height 5 ft 1 in 07/07/24 09:27 Respiratory Assessment Respiratory Assessment - storage solutions architect: Respiratory Tract Infection Hx - storage solutions architect Hx Respiratory Tract Infection Yes: SEVERE DIAZ/SINUS 11/23/24 11:19 CONGESTION/TREATED AND RESOLVED STOP Sleep Apnea STOP Sleep Apnea - storage solutions architect: STOP Sleep Apnea - storage solutions architect Hx Hypertension No 11/23/24 11:19 Hx Sleep Apnea No 11/23/24 11:19 CPAP No 05/15/23 13:10 BIPAP Do you snore loudly (louder Yes 11/23/24 11:19 than talking or can be heard Do you often feel tired/ No 11/23/24 11:19 fatigued/ sleepy during daytime? Has anyone observed you stop No 11/23/24 11:19 breathing during sleep? STOP Results Negative 11/23/24 11:19 QUESTION #5 FULL TEXT : Do you snore loudly (louder than talking or can be heard through closed doors)? 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 Specify any problems Hx of Preganancy in last 3 No 11/23/24 11:19 Months Nurse Filling Out Transfusion DSCHRIBER 11/23/24 11:19 & Questions: Date: 11/23/24 11/23/24 11:19 Time: 11:22 11/23/24 11:19 Patient unable to answer at this time (ie. confused, unrespo /Reproduction History /Reproductive History - storage solutions architect: /Reproductive Hx- storage solutions architect Hx Now No 11/23/24 11:19 Gestational Age (in weeks): EDC: Hx Hx Para Hx Section SAB No 11/23/24 11:19 PFSH Medical History (Updated 11/23/24 @ 11:33 by Jossie Jurado) Post-menopausal Psoriasis Walker as ambulation aid Bladder disease Leal's cyst of knee History of hiatal hernia History of pain when walking Abrasion of left ear canal Wears hearing aid Wears glasses Wears dentures MRSA infection Arthritis Non-smoker Leg cramps History of edema History of echocardiogram History of stress test Hair loss Osteoporosis GERD (gastroesophageal reflux disease) Home Medications ?Medication ?Instructions ?Recorded ?Last Taken ?Type multivitamin 1 cap PO DAILY 03/12/19 Unkn own History acetaminophen 500 mg tablet 500 mg PO Q6H PRN PRN Pain 1-10 Or 10/05/20 Unknown History Fever betamethasone dipropionate 0.05 % 45 g TP PRN PRN PSOR IASIS 10/05/20 Unknown History topical cream cetirizine 10 mg tablet 10 mg PO QHS PRN allergy sym ptoms 10/05/20 Unknown History calcium 600 mg (as carbonate)-vit 1 each PO DAILY 01/09 08/01 Unknown History D3 10 mcg (400 unit) chewable tablet carboxymethylcellulose sodium 0.5 1 drp ophthalmic (ey e) BID PRN dry 06/21/23 Unknown History % eye drops (Refresh Tears) eye(s) triamcinolone acetonide 55 mcg 2 spray intranasal IMANI Y PRN nasal 06/21/23 Unknown History nasal spray aerosol (Nasacort) congestion cholecalciferol (vitamin D3) 25 25 mcg PO DAILY Unknown History mcg (1,000 unit) capsule (Vitamin D3) famotidine 40 mg tablet 40 mg PO QHS 11/23/24 Unknow n History mirabegron 50 mg tablet,extended 100 mg PO QHS 5 Unknown History release 24 hr (Myrbetriq) pantoprazole 40 mg tablet,delayed 40 mg PO DAILY 11/23 Unknown History release Allergy/AdvReac Type Severity Reaction Status Date / Time nabumetone Allergy Severe throat Verified 11/23/24 11:06 closing, Itching,hives to throat omeprazole Allergy Unknown Unknown Verified 11/23/24 11:06 Sulfa (Sulfonamide Allergy Unknown Unknown Verified 11/23/24 11:06 Antibiotics) diclofenac sodium (From Allergy Unknown Verified 11/23/24 11:06 Arthrotec) hydrochlorothiazide (From Allergy Hives Verified 11/23/24 11:06 Dyazide) misoprostol (From Arthrotec) Allergy Unknown Verified 11/23/24 11:06 sulfabenzamide Allergy Rash Verified 11/23/24 11:06 triamterene (From Dyazide) Allergy Hives Verified 11/23/24 11:06 Family History Father Cancer Dementia Stomach ulcer Mother CVA (cerebral vascular accident) Dementia Sister Breast cancer Surgical History (Updated 11/23/24 @ 11:33 by Jossie Jurado) Hx of colonoscopy History of esophagogastroduodenoscopy (EGD) Hx of left cataract extraction Hx of bladder repair surgery History of carpal tunnel surgery of left wrist History of total knee replacement cataract surgery eye lid surgery H/O left knee surgery History of cholecystectomy r shoulder surgery H/O carpal tunnel repair H/O: hysterectomy Hx of appendectomy Social History household members: none Smoking Status: Never smoker alcohol intake: current alcohol intake frequency: holidays/special occasions only substance use type: does not use what type of physical activity do you participate in: walking seatbelt use: always do you feel safe at home: Yes Audit: Pertinent Findings Pertinent Findings EKG Perinent findings: February 06, 2021. Normal sinus rhythm. Recommendation Anesthesia Recommendation Anesthesia recommendation: OPTIMIZED for anesthesia
[2024-12-14] VITALS (14 sets, daily range): BP systolic 113–150; BP diastolic 64–87; PULSE 61–96; RESP 14–18; TEMP 35.7–36.6; O2SAT 94–100; BMI 28.2; BMI 29.4
--- NOTE | 2024-12-14 | KNEE_PTH ---
PATIENT: PHYLLIS STINSON LOC: [facility] U#:[id number] AGE/SX: 84/F [place] [facility] [place]: Dr. Aelc Nance MD : 1940 BED: 1 DIS: 12/18/2024 SPEC #: [id number] RECD: 12/15/24 09:01 STATUS: LISA ZENG #: [id number] KIT: 12/14/24 00:[address]: Alec Nance DEPT: SURGICAL PATHOLOGY RECD BY: Patrick Garcia ENTERED: 12/15/24 09:01 SP TYPE: TOTAL KNEE OTHR DR: MD Dr. Aneudy Fowler MD Dr. Prakash Chand, MD Tissues: Knee, NOS Procedures: Decalcification bone/plaque Surgery Specimen Level IV HEADER OPERATION: Robotic assisted knee conversion PRE-OP DIAGNOSIS: Painful left unicompartmental knee replacement TISSUE SUBMITTED: Left knee debrided bone and tissue MICROSCOPIC DIAGNOSIS Bone and soft tissue, left knee, total knee replacement/resection: Pieces of bone with degenerative osteoarthritic changes. Fibroadipose tissue, fibroconnective tissue, fibrocartilaginous tissue and reactive synovial tissue. Focal changes consistent with pseudogout. SJ: 12/18/2024 MICROSCOPIC DESCRIPTION Slides are reviewed. GROSS DESCRIPTION Received is one container designated bone and soft tissue left knee. The specimen consists of multiple fragments of pope-yellow bone measuring in aggregate 9 x 9 x 3.5 cm. A piece of cartilaginous tissue is also noted measuring 4.5 x 1 x 0.6cm. A number of bony fragments contain articular surfaces consistent with tibial plateau and femoral condyle and displaying prominent osteophyte formation, eburnation and bone erosion. Fruit Bar Maker sections are submitted in two cassettes as follows: 1 - soft tissue, 2 - bone after decalcification. / CARLOS ALBERTO. 12/15/2024 TC:5 CPT: 49179, 79175
[2024-12-14] MEDS: Magnesium 1 GM over 15 mins IV (08:58)
[2024-12-14] MEDS: Lactated Ringers 1,000 ML 999 ML IV (08:58)
[2024-12-14] MEDS: Acetaminophen 500 MG Tablet 1000 MG PO ×2 (09:02→18:17)
[2024-12-14] MEDS: Gabapentin 600 MG Tablet PO (09:02)
[2024-12-14] MEDS: Celecoxib 200 MG Capsule 400 MG PO (09:05)
--- NOTE | 2024-12-14 09:11 | PRE.ANES_ITS ---
ASA Classification* ASA Classification ASA Classification: 2 Assessment & Plan Anesthesia* Anesthesia Assessment Anesthesia Assessment: Discussed sedation and/or anesthesia options, risks, benefits, and alternatives with patient/parents/legal guardian/POA. Questions invited. The patient/parents/legal guardian/POA seems to understand and agrees to proceed with anesthesia plan. Reviewed the physical assessment, medical history, allergy history and patient home medications list prior to surgery/procedure/anesthetic and documented any changes. Performed airway and anesthesia risk assessments. Anesthesia Type Anesthesia Type: Spinal and Block Anesthesia Focused Assessment* Temperature: 97.6 F Pulse Rate: 76 Blood Pressure: 149/83 Respiratory Rate: 18 Pulse Ox: 98 Airway Assessment Mouth opens: >3 cm Mallampati Score: II Focused Labs Anesthesia Preop lab: CBC WBC 5.0 K/mm3 (4.4-11.0) 11/25/24 13:58 11/25/24 RBC 4.48 M/mm3 (4.2-5.4) 11/25/24 13:58 11/25/24 Hgb 13.3 g/dL (12.0-15.0) 11/25/24 13:58 11/25/24 Hct 40.7 % (37-47) 11/25/24 13:58 11/25/24 Plt Count 239 K/mm3 (150-450) 11/25/24 13:58 11/25/24 CHEMISTRY Potassium 4.3 mmol/L (3.5-5.1) 11/25/24 13:58 11/25/24 Sodium 137 mmol/L (136-145) 11/25/24 13:58 11/25/24 Magnesium 2.2 mg/dL (1.6-2.6) 11/25/24 13:58 11/25/24 Phosphorus 4.1 mg/dL (2.5-4.9) 07/14/20 08:10 07/14/20 BUN 13 mg/dL (7-18) 11/25/24 13:58 11/25/24 Creatinine 0.67 mg/dL (0.55-1.02) 11/25/24 13:58 11/25/24 Glucose 87 mg/dL (74-106) 11/25/24 13:58 11/25/24 POC Glucose 67 mg/dL (70-110) L 02/13/21 08:18 02/13/21 TSH 2.03 uIU/mL (0.358-3.74) 11/13/22 10:36 COAG Pre-Assessment Diagnosis/Proposed Procedure Planned Operative Procedure(s): ROBOTIC ASSISTED LEFT KNEE CONVERSION FROM UNICOMPARTMENTAL ARTHROPLASTY TO TOTAL KNEE ARTHROPLSTY Anesthesia History Anesthesia History - electrician outside: Anesthesia History - electrician outside Hx Hospitalization No 11/23/24 11:19 Any Problems With Anesthesia Yes: N,V 11/23/24 11:19 Cholinesterase deficiency No 11/23/24 11:19 You/Your Family Experience No 11/23/24 11:19 fever (hyperthermia) with Relationship Recent Exposure to Contagious No 12/14/24 08:53 Disease Does patient have nerve No 11/23/24 11:19 stimulator Patient instructed to have device shut off --Does patient have Pacemaker No 12/14/24 08:53 or ICD? When Was Last Pacemaker Check QUESTION #4 FULL TEXT: You/Your Family Experience fever (hyperthermia) with Anesthesia Last Oral Intake Last Oral intake: Last Oral Intake NPO since 06:00 12/14/24 08:53 Meds taken in AM with sips of Yes 12/14/24 08:53 water? Meds patient instructed to take am of surgery PONV PONV - electrician outside: PONV - electrician outside Female Yes 11/23/24 11:19 HX of Motion Sickness No 11/23/24 11:19 HX of N/V After Surgery Yes 11/23/24 11:19 Non-Smoker Yes 11/23/24 11:19 Duration of Surgery greater Yes 11/23/24 11:19 than 60 minutes Number of Risk Factors 4 11/23/24 11:19 PONV Score Severe Risk 11/23/24 11:19 Height & Weight Height & Weight: Anesthesia: Height & Weight Height 5 ft 1 in 12/14/24 08:53 Weight: 67.8 kg 12/14/24 08:53 Body Mass Index (BMI) 28.2 12/14/24 08:53 Respiratory Assessment Respiratory Assessment - electrician outside: Respiratory Tract Infection Hx - electrician outside Hx Respiratory Tract Infection Yes: SEVERE DIAZ/SINUS 11/23/24 11:19 CONGESTION/TREATED AND RESOLVED STOP Sleep Apnea STOP Sleep Apnea - electrician outside: STOP Sleep Apnea - electrician outside Hx Hypertension No 11/23/24 11:19 Hx Sleep Apnea No 11/23/24 11:19 CPAP No 05/15/23 13:10 BIPAP Do you snore loudly (louder Yes 11/23/24 11:19 than talking or can be heard Do you often feel tired/ No 11/23/24 11:19 fatigued/ sleepy during daytime? Has anyone observed you stop No 11/23/24 11:19 breathing during sleep? STOP Results Negative 11/23/24 11:19 QUESTION #5 FULL TEXT : Do you snore loudly (louder than talking or can be heard through closed doors)? 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 Specify any problems Hx of Preganancy in last 3 No 11/23/24 11:19 Months Nurse Filling Out Transfusion DSCHRIBER 11/23/24 11:19 & Questions: Date: 11/23/24 11/23/24 11:19 Time: 11:22 11/23/24 11:19 Patient unable to answer at this time (ie. confused, unrespo /Reproduction History /Reproductive History - electrician outside: /Reproductive Hx- electrician outside Hx Now No 11/23/24 11:19 Gestational Age (in weeks): EDC: Hx Hx Para Hx Section SAB No 11/23/24 11:19 Active Medications Active Medications: Current Medications Generic Name Dose Route Start Last Admin Trade Name Freq PRN Reason Stop Dose Admin Lactated Ringer's 1,000 mls @ 999 mls/hr 12/14/24 08:45 12/14/24 08:58 IV 12/14/24 09:45 999 mls/hr .Q1H1M DANA Administration Tranexamic Acid 1,000 mg/ 110 mls @ 660 mls/hr 12/14/24 09:45 Sodium Chloride IV 12/14/24 09:54 X1 ONE Insulin Human Lispro 1 - 6 unit 12/14/24 08:45 Insulin Lispro 100 Unit/Ml Insuln.Pen SC 12/14/24 14:45 Q4H PRN PRN BG>/= 180, SEE PROTOCOL Protocol PFSH Medical History Post-menopausal Psoriasis Walker as ambulation aid Bladder disease Leal's cyst of knee History of hiatal hernia History of pain when walking Abrasion of left ear canal Wears hearing aid Wears glasses Wears dentures MRSA infection Arthritis Non-smoker Leg cramps History of edema History of echocardiogram History of stress test Hair loss Osteoporosis GERD (gastroesophageal reflux disease) Home Medications ?Medication ?Instructions ?Recorded ?Last Taken ?Type multivitamin 1 cap PO DAILY 03/12/1911/12 History acetaminophen 500 mg tablet 500 mg PO Q6H PRN PRN Pain 1-10 Or 10/05/20 12/13/24 History Fever betamethasone dipropionate 0.05 % 45 g TP PRN PRN PSOR IASIS 10/05/20 Unknown History topical cream cetirizine 10 mg tablet 10 mg PO QHS PRN allergy sym ptoms 10/05/20 Unknown History calcium 600 mg (as carbonate)-vit 1 each PO DAILY 01/0912/13/24 History D3 10 mcg (400 unit) chewable tablet carboxymethylcellulose sodium 0.5 1 drp ophthalmic (ey e) BID PRN dry 06/21/23 Unknown History % eye drops (Refresh Tears) eye(s) triamcinolone acetonide 55 mcg 2 spray intranasal IMANI Y PRN nasal 06/21/23 Unknown History nasal spray aerosol (Nasacort) congestion cholecalciferol (vitamin D3) 25 25 mcg PO DAILY 12/13/24 History mcg (1,000 unit) capsule (Vitamin D3) famotidine 40 mg tablet 40 mg PO QHS 11/23/24 History mirabegron 50 mg tablet,extended 100 mg PO QHS 5 12/13/24 History release 24 hr (Myrbetriq) pantoprazole 40 mg tablet,delayed 40 mg PO DAILY 11/2312/14/24 History release Allergy/AdvReac Type Severity Reaction Status Date / Time nabumetone Allergy Severe throat Verified 12/14/24 08:51 closing, Itching,hives to throat omeprazole Allergy Unknown Unknown Verified 12/14/24 08:51 Sulfa (Sulfonamide Allergy Unknown Unknown Verified 12/14/24 08:51 Antibiotics) diclofenac sodium (From Allergy Unknown Verified 12/14/24 08:51 Arthrotec) hydrochlorothiazide (From Allergy Hives Verified 12/14/24 08:51 Dyazide) misoprostol (From Arthrotec) Allergy Unknown Verified 12/14/24 08:51 sulfabenzamide Allergy Rash Verified 12/14/24 08:51 triamterene (From Dyazide) Allergy Hives Verified 12/14/24 08:51 Family History Father Cancer Dementia Stomach ulcer Mother CVA (cerebral vascular accident) Dementia Sister Breast cancer Surgical History Hx of colonoscopy History of esophagogastroduodenoscopy (EGD) Hx of left cataract extraction Hx of bladder repair surgery History of carpal tunnel surgery of left wrist History of total knee replacement cataract surgery eye lid surgery H/O left knee surgery History of cholecystectomy r shoulder surgery H/O carpal tunnel repair H/O: hysterectomy Hx of appendectomy Social History household members: none Smoking Status: Never smoker alcohol intake: current alcohol intake frequency: holidays/special occasions only substance use type: does not use what type of physical activity do you participate in: walking seatbelt use: always do you feel safe at home: Yes Review of Systems (Anesthesia) ROS Narrative System reviewed and no additional complaints, except as documented.
[2024-12-14 09:26] LABS: Bedside Glucose 85 mg/dL (74-106)
[2024-12-14] MEDS: Cefazolin 2 GM in Syringe 10 ML IV (10:59)
[2024-12-14] MEDS: TXA 1000mg in NS100 100ml (IVPB at Incision) 660 MG IV (11:18)
[2024-12-14] MEDS: dexAMETHasone 10 MG/ML Vial IV (11:18)
[2024-12-14] MEDS: TXA 1000mg in NS100 100ml (IVPB at Closure) 660 MG IV (12:52)
[2024-12-14] MEDS: JPS (Morphine 10mg/ml) OPERA.SITE (13:00)
--- NOTE | 2024-12-14 13:07 | RAD_ITS ---
EXAM: KNEE 1 OR 2 VIEWS CLINICAL HISTORY: Total knee replacement. COMPARISON: None. TECHNIQUE: AP and lateral views were obtained. FINDINGS: Status post total knee replacement. There is good alignment. Postoperative soft tissue changes. RAD/Knee 1 or 2 Views IMPRESSION: Status post total knee replacement. There is good alignment. Postoperative soft tissue changes. Reading Location: [place] [address]
--- NOTE | 2024-12-14 13:10 | OP.PCM_ITS ---
Operative Report (Standard) Operative Information Date of Procedure: 12/14/24 Pre-Operative Diagnosis: Failed left partial knee replacement, progression of osteoarthritis Post-Operative Diagnosis: Failed left partial knee replacement, progression of osteoarthritis Surgery/Procedure Performed: Conversion previous medial compartment left partial knee replacement to robotic assisted total knee replacement success coach: Yes Implementation Project Coordinator: Mirta Sharp Tasks completed by bilingual administrative assistant: Other (See body of operative report) Additional nutritional assistant?: Yes Additional Zoning Assistant #2: Tiburcio Powell Tasks completed by nutritional assistant #2: Other (See body of operative report) Additional nutritional assistant?: No Type of Anesthesia: Spinal RN Documented Start/Stop Times: Operation Date: 12/14/24 10:15 Case Time Into Pre-Op 12/14/24 08:07 Anesthesia Start 12/14/24 10:59 Into Room 12/14/24 10:59 Procedure Start 12/14/24 11:18 Procedure End 12/14/24 13:44 Anesthesia End 12/14/24 13:56 Out of Room 12/14/24 13:56 Into Recovery 12/14/24 13:57 Out of Recovery 12/14/24 14:51 Into Phase II Recovery 12/14/24 14:52 Out of Phase II 12/14/24 15:42 Procedure Start Time: 11:18 Procedure Stop Time: 13:44 Select all DRAINS/GRAFTS/IMPLANTS that apply: Prosthetic device Prosthetic device details: See body of operative report Special Medications: 2 g Ancef, 1 g TXA at incision, 1 g TXA closure, 10 mg Decadron, joint cocktail (5 mg Duramorph, 30 mL of 0.5% Ropivicaine, 1000 units of epinephrine, 30 mg of Toradol) Estimated Blood Loss: 150 mL Fluids Replaced: 1000 mL crystalloid Specimen collected: Yes Description of specimen(s) removed: 3 separate specimens were sent to microbiology Description of surgery: Implants used: 1. Sonia size 3 triathlon posterior stabilized cemented component with 5 mm distal medial augment 2. Fordoche size 4 universal tibial baseplate with 12 x 50 mm cemented stem and 5 mm medial augment 3. [place] X3 11 mm PS polyethylene 4. Sonia X3 32 mm asymmetric patella Brief history operative indications: 84-year-old female with history of left knee osteoarthritis with radiographic findings with loss of joint space, osteophyte formation and subchondral sclerosis. Failed conservative measures as mentioned in the H&P. Discussion of total knee arthroplasty as well as risk and benefits were discussed the patient including but not limited to blood loss, DVTs, PEs, neurovascular damage, general risk of anesthesia including loss of life, and stiffness or instability were discussed with patient. Patient demonstrated understanding and was able to sign informed consent. Procedure: On the date of procedure patient's left lower extremity was marked in the pre operative area. The patient was then taken back to the operating room where the patient was placed on the table in the supine position. All bony prominences were identified a well-padded. Anesthesia assumed control of the C-spine and airway and remained controlled throughout the remainder of the procedure. A tourniquet was placed on the left upper thigh and the leg was prepped in a sterile fashion. The surgeon then scrubbed at this time .Upon reentering the room left lower extremity was draped in a standard orthopedic fashion. A timeout was then called and everyone agreed upon the side, the site, the procedure to be performed, patient's identity and antibiotics given. Esmarch bandage was used to exsanguinate the extremity and the tourniquet was placed up to 250 mmHg with the knee in flexion. A midline skin incision was made and sharp dissection was taken down through skin subcutaneous tissue and fat. The standard medial parapatellar incision was made and the patella was subluxed laterally. An Appropriate deep MCL release was done and the fat pad was resected. At this time due to the revision nature of the surgery we did perform a complete debridement and synovectomy of the synovium. There was chronic inflammation noted in the synovium. This did take additional time. Our attention was then directed to the patella. The patella was everted and a flat resection was made. The knee was then flexed up in 2 femoral pins were placed inside the incision and 2 tibial pins were placed outside the incision in the medial tibia bicortically. Once this was completed the 2 checkpoints in the femur and tibia were placed. Knee was then flexed up and the bony landmarks were registered. Once this was completed knee was taken through range of motion and manually stressed allowing us to a plan for an appropriate tibial cut. The robotic arm was brought into the field sterilely and checkpoint and saw were registered. After the initial registration we then directed our attention towards the implants. Flexible osteotome was used to separate the bone cement interface from the femoral implant. This was removed. Residual cement was removed. Bony defect was assessed. Then directed our attention to the tibia. Osteotome was used to separate the tibia from the polyethylene component. Polyethylene was removed. Flexible osteotome was used to separate the bone cement interface. Tibial component was removed and based on previous cement there was some central defect. This was assessed to be addressed surgically. This did take additional time. Based on the patient's deformity the tibial cut was made in 3 degrees varus. After making initial tibial cut the bone defect was not adequately addressed immediately. We then adjusted the plan to make a 5 mm deeper medial cut to 45 mm augment. Once this was done we again readjusted plan back to original plan on the [employer] system. This took additional time. At this time the tensioner was then placed in the joint and ligament tension was checked at 90 degrees and full extension. Based on the patient's ligamentous tension appropriate adjustments were made to the operative plan and ligament releases were done. Once we were happy with our operative plan with balanced flexion and extension gaps our attention was directed to the femur. The robot was brought into the field sterilely and registered. Posterior condylar cuts, anterior chamfer cuts and anterior cuts were appropriately made for a size 3 femur. When these were completed the saws were switched out in the distal femoral and posterior chamfer cuts were made. After making our initial cuts it was noted that there was a bone defect medially and we needed to adjust our plan for a 5 mm medial augment. The surgical plan was addressed femur was again reregistered and a 5 mm cut was made on the medial distal femoral condyle for a 5 mm augment. Plan was then adjusted back to its original plan for further planning intraoperatively. Protecting the soft tissue throughout this time. A size 4 tibial base plate was selected with a medial 5 mm augment. the knee was flexed to 90 degrees and the soft tissues and posterior osteophytes were removed from the joint. 40 cc of the periarticular injection was injected into the posterior medial corner of the joint. The knee was flexed and a notch cut was made for the posterior stabilized femur. The appropriate trials were then placed on the femur and tibia. A trial polyethylene was trialed to ensure proper balancing and stability of the knee. The appropriate tibial internal rotation was then marked with a bovie. Our attention was then directed to the patella. The lug holes were drilled and the patella trial was placed. Patellar tracking was checked and deemed appropriate. Once we were happy lug holes were drilled for the femur and trial components were removed. The tibia was subluxed and pinned into place and the keel was punched and drilled appropriately. Final components were verified and opened. The wound was copiously irrigated with normal saline under low-pressure lavage a total of 6 L again this took additional time and was done due to the repeat nature of the surgery. When the cement was ready the components were cemented into place starting with the tibia then the femur, finally the patella was compressed into place. The trial poly component was placed and the knee was placed in full extension. Once the the implants were secured, the tracking, alignment and balance were verified and a size 11 mm CS polyethylene component was placed. Once the final components were placed a 3-minute dilute Betadine lavage was performed followed by an Irrisept lavage was performed and the wound was copiously irrigated with normal saline solution and the periarticular injection was given. The wound was closed in a layer bright fashion using #1 vicryl interrupted sutures for the arthrotomy, 2-0 interrupted Vicryl suture for the subcuticular layer and dani for final skin closure. A sterile compressive dressing was then placed. The patient was then awakened from anesthesia, transferred to the rhudson and transferred to the PACU for recovery. Post op plan DVT ppx: ASA 81mg BID, thigh high compression stockings Follow up: in office in 2 weeks for wound check PT: to start POD #0 at hospital, outpatient PT should be arranged. Patient was placed on extended postop oral antibiotics as we follow cultures. Doxycycline 100 mg p.o. twice daily for 2 weeks My physician nutritional assistant was a vital part of this case, they was important because there was not another skilled set of hands available to their training and aptitude needed for safe and appropriate completion of this case. They were important in appropriate retraction during the case, and protection of soft tissues during bony cuts. In particular the experience and skill of this nutritional assistant made for safe retraction and exposure during implantation of medical implants without damage to vital soft tissues or structures. His intimate knowledge of the case and my steps aided in safe and expedient completion of the procedure as well as appropriate position of the leg during the case. He was also vital in assisting with closure under my direct supervision. Due to the complexity of this case robotic arm was used to assist in the surgery to improve accuracy and clinical outcomes. Modifier 22: As noted above there were certain portions of this case that increased the time of the case in relation to a standard 74707 which is Case will be billed under. These include the complete debridement of synovectomy due to the revision nature of the surgery, removal of the femoral and tibial implants, addressing the bony defects including recutting the femur and the tibia and adjusting the surgical plan to do so. Based on this the tourniquet time was over an hour in length. General tourniquet time is roughly 35 minutes. This translates to roughly 80% longer and surgical time in relation to addressing the complexity of this case and should be considered in reimbursement. Surgical Findings: Stable knee with good patella tracking. 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 Complications Complications: No Admit VTE Documentation VTE Present on Admission: No VTE Mechan Device Prophylaxis: SCD's and Thigh High ARIELLE Hose VTE Pharm Prophylaxis ordered?: Yes
[2024-12-14] MEDS: Lactated Ringers 1,000 ML 15 ML IV (14:36)
--- NOTE | 2024-12-14 14:53 | PCM.POST.ANE ---
Anesthesia: Postop Eval I Current Vital Signs Temperature: 96.8 F Pulse Rate: 80 Blood Pressure: 140/72 Respiratory Rate: 16 Pulse Ox: 98 Oxygen Delivery Method: Nasal Cannula Oxygen Flow Rate (L/min): 4 Assessment Airway patent: Yes Spontaneous unlabored respirations: Yes nausea: No Vomiting: No Anesthesia Complication: No Fluid Hydration Crystalloid volume administer (ml): 500 Total IV fluid infused: 500 Progress Note Anesthesia document: Postop Eval 1 completed: Yes
--- NOTE | 2024-12-14 14:54 | PCM.POSTANE2 ---
Anesthesia Postop Eval I Sum Postop Eval Completion status Anesthesia document: Postop Eval 1 completed: Yes Anesthesia Postop Eval I Summary Anesthesia Postop Eval I Summary: Anesthesia Postop Eval I: Assessment Summary Airway patent Yes 12/14/24 14:54 Spontaneous unlabored Yes 12/14/24 14:54 respirations Mental status nausea No 12/14/24 14:54 Vomiting No 12/14/24 14:54 Anesthesia Postop Eval I: Fluid Summary Crystalloid volume administer 500 12/14/24 14:54 (ml) Colloids volume administered ( ml) Blood Product volume administered (ml) Total IV fluid infused 500 12/14/24 14:54 Anesthesia Postop Eval I: Summary Notes Anesthesia Complication No 12/14/24 14:54 Anesthesia Complication Comment: Post-operative progress note Anesthesia: Postop Eval II Evaluation Mental status: Awake Pain Level: 2 nausea: No Vomiting: No
[2024-12-14] MEDS: Ondansetron 4 MG/2 ML Vial IV (16:26)
[2024-12-14] MEDS: Cefazolin 1 GM/50 ML BAG IV (18:17)
[2024-12-14] MEDS: Aspirin 81 MG TAB.CHEW PO (18:17)
[2024-12-14] MEDS: proMETHazine 25 MG/ML Syringe 12.5 MG IM (19:44)
--- NOTE | 2024-12-14 20:32 | PCM.PN.HOSP ---
Reason for Visit Reason for Visit: Diagnoses Encounter for other preprocedural examination (12/14/24) Subjective Subjective Patient with history of ongoing pain secondary to failed left partial knee replacement with progression of osteoarthritis disease s/p OR today with medial compartment left partial knee replacement to robotic assisted total knee replacement by Dr. Nance. Patient postoperatively did have hypoxia in PACU however this is since improved and there is some concern that maybe there could be underlying sleep apnea but is uncertain. Patient initially sleeping upon current evaluation with no evidence of any dyspnea but she is snoring very loudly noted to be 100% on 2 L nasal cannula. Patient denies any current discomfort to her knee although she does have some discomfort to the thigh where the tourniquet was placed. She has full sensation returned and has been up with staff to the restroom. Patient denies fevers, chills, nausea, emesis, abdominal pain, chest pain or dyspnea. Objective Data Objective Data Vital Signs: Vital Signs Temp Pulse Resp BP Pulse Ox O2 Del Method O2 Flow Rate 97.7 F L 78 18 146/77 H 100 Nasal Cannula 2 12/14/24 18:12 12/14/24 18:12 12/14/24 18:12 12/14/24 18:12 12/14/24 18:12 12/14/24 18:12 12/14/24 18:12 Oxygen Flow Rate (L/min) 2 Oxygen Delivery Method Nasal Cannula Weight: 155 lb 13.869 oz Body Mass Index (BMI) 29.4 Intake & Output: Intake and Output for Last 24 Hours 12/12/24 12/13/24 12/14/24 23:59 23:59 23:59 Intake Total 2742 / 2742 Output Total 600 / 600 Balance 2142 / 2142 Lab / Micro Data 11/25/24 13:58 11/25/24 13:58 Labs: Laboratory Results - last 24 hr 12/14/24 08:49: POC Glucose 85 Micro: Microbiology 11/25/24 13:58 Swab (Method) Nasal Screen MRSA/MSSA - Final Radiography Diagnostic Testing: Radiology Impression Knee X-Ray 12/14/24 13:07 IMPRESSION: Status post total knee replacement. There is good alignment. Postoperative soft tissue changes. Reading Location: [facility] Physical Exam Narrative Physical Examination: General: Initially sleeping, monitored for some time and patient appeared comfortable, snoring loudly but no gasping, awaken to stimuli, alert with discussions following, oriented to self, place and recent events, remained cooperative, seated upright in the MS bed, noted pain controlled. Skin: Normal color, normal turgor, no icterus, no cyanosis except status post left total knee replacement conversion with dressings in place with no drainage and bruising to likely where the tourniquet was on the thigh. HEENT: AT/NC, EOMI, PERRLA, MMM, no carotid bruits or JVD noted. Lungs: CTA bilaterally, moderate effort, mild decrease BL bases, no rales, ronchi or wheezing. Heart: Regular rate and rhythm; no gallop, rub audible. Abdomen: Soft, overweight, NTTP, ND, normal BS, no appreciated HSM. Extremities: No cyanosis, no clubbing, no distal edema noted, dressings in place over the left knee with no drainage but unable to discern swelling at that region as result. Neurological: Initially sleeping, monitored for some time and patient appeared comfortable, snoring loudly but no gasping, awaken to stimuli, alert with discussions following, oriented as noted, cognitive function intact; pupils equally reactive to light and accommodation, cranial nerves grossly normal, moving all 4 extremities although expected limitation left lower extremity given recent OR with left total knee replacement conversion, strength moderately to severely globally decreased but improving. Psychiatric: Affect appears fatigued, no acute evidence of depressive or anxiety feelings. Assessment & Plan Assessment/Plan (1) Osteoarthritis: PLAN: Plan The patient is an 84-year-old female with past medical history GERD with eosinophilic esophagitis history, allergic rhinitis, psoriasis who presents to the [facility] for planned operative intervention secondary to failed left partial knee replacement with progression of osteoarthritis disease for planned conversion of previous medial compartment left partial knee replacement to robotic assisted total knee replacement by Dr. Nance. #1. Severe Osteoarthritis, left knee with failed previous left partial knee replacement with progression of osteoarthritic disease: Failed conservative therapies and treatments, admitted per Dr. Nance, status postconversion previous medial compartment left partial knee replacement robotic assisted left total knee replacement, post-operative pain management, bowel regimen, DVT Prophylaxis, PT/OT/CM per Orthopedic surgery discretion. #2. Postoperative hypoxemia: Postoperatively patient with hypoxia in the PACU, slowly improving, currently on 2 L nasal cannula, encourage aggressive I-S, head of bed, coughing as well as encouragement of up and moving with therapies, expect patient over the next 12 to 24 hours to be able to wean to room air. No history of sleep apnea per records although some initial concern given mild snoring but did monitor her sleeping for some time and there is no gasping for air but would benefit from outpatient assessment. #3. GERD with eosinophilic esophagitis history: We will continue patient home PPI regimen daily as well as nightly famotidine, may have Mylanta as needed. #4. Allergic rhinitis: Patient utilizes cetirizine only as needed, may hold unless needed. #5. Psoriasis: Patient uses as needed betamethasone topical agents, may hold unless necessary. #6. DVT prophylaxis: SCDs, chemoprophylaxis per surgery discretion given recent OR. Charges/Coding Visit Charges Inpatient E&M: 87640 Subs Hosp L3
[2024-12-14] MEDS: Scopolamine 1mg/72hr Patch 1 PATCH TD (20:41)
[2024-12-14] MEDS: Senna/Docusate Sodium 1 Tablet 2 TABLET PO (22:19)
[2024-12-14] MEDS: Vibegron 75 MG TABLET PO (22:19)
[2024-12-14] MEDS: Famotidine 20 MG Tablet PO (22:19)
[2024-12-15] MEDS: Acetaminophen 500 MG Tablet 1000 MG PO ×3 (01:19→20:04)
[2024-12-15] MEDS: Cefazolin 1 GM/50 ML BAG IV (02:35)
--- NOTE | 2024-12-15 03:15 | NURSING ---
[place] to [place] [facility] [place] voided 100 then she went to bed, then about 10 mins later after being bladder scanned for 406ml she got [place] again to [place] [facility] [place] voided 300ml.
[2024-12-15 03:29] VITALS: BP 131/67; PULSE 79; RESP 16; TEMP 36.4; O2SAT 98
[2024-12-15 04:00] VITALS: RESP 16; O2SAT 96
[2024-12-15] MEDS: traMADol 50 MG Tablet PO ×3 (06:45→21:33)
[2024-12-15 06:48] LABS: Hematocrit 31.8 % (37-47); Mean Corp Hgb Conc 31.4 g/dL (32-36); Mean Corpuscular Volume 92.2 fL (81-99); Mean Platelet Vol. 9.6 fl (6.2-12.0); Platelet Count 224 K/mm3 (150-450); RBC Distribution Width CV 12.8 % (11.6-14.6); RBC Distribution Width SD 42.7 fl (35.1-43.9); Red Blood Count 3.45 M/mm3 (4.2-5.4); White Blood Count 6.7 K/mm3 (4.4-11.0)
--- NOTE | 2024-12-15 06:49 | PN.ORTHO_ITS ---
Subjective Subjective The patient was sitting in bed upon examination. Patient denies any chest pain, shortness of breath, dizziness, lightheadedness, or calf pain. Pain is controlled on medications. Patient overnight was having some nausea and patient wanted a scopolamine patch. Scopolamine patch was placed. She states it has been helpful. Patient was not able to work with physical therapy yesterday. Patient is a revision from a partial knee replacement to a total knee replacement. We are awaiting cultures. Patient also has drainage over the distal incision. Objective Data Objective Data Vital Signs: Vital Signs Temp Pulse Resp BP Pulse Ox O2 Del Method O2 Flow Rate 97.6 F L 79 16 131/67 H 96 Room Air 2 12/15/24 03:29 12/15/24 03:29 12/15/24 04:00 12/15/24 03:29 12/15/24 04:00 12/15/24 04:00 12/14/24 23:56 Oxygen Flow Rate (L/min) 2 Oxygen Delivery Method Room Air Weight: 70.7 kg Body Mass Index (BMI) 29.4 Intake & Output: Intake and Output for Last 24 Hours 12/13/24 12/14/24 12/15/24 23:59 23:59 23:59 Intake Total 2742 / 2742 250 / 250 Output Total 600 / 600 500 / 500 Balance 2142 / 2142 -250 / -250 Lab / Micro Data 12/15/24 06:22 11/25/24 13:58 Labs: Laboratory Results - last 24 hr 12/14/24 08:49: POC Glucose 85 12/15/24 06:22: WBC 6.7, RBC 3.45 L, Hgb 10.0 L, Hct 31.8 L, MCV 92.2, MCH 29.0, MCHC 31.4 L, RDW Std Deviation 42.7, RDW Coeff of [place] 12.8, Plt Count 224, MPV 9.6 Micro: Microbiology 11/25/24 13:58 Swab (Method) Nasal Screen MRSA/MSSA - Final Radiography Diagnostic Testing: Radiology Impression Knee X-Ray 12/14/24 13:07 IMPRESSION: Status post total knee replacement. There is good alignment. Postoperative soft tissue changes. Reading Location: [facility] Physical Exam Narrative Vital signs stable and afebrile. SCDs and ARIELLE hose are in place bilaterally Patient is able to plantarflex and dorsiflex actively. Sensation is intact to light touch to saphenous, sural, superficial and deep peroneal, and tibial distribution. Compressive Stanley wrap was taken off by myself this morning. Pin site dressings are clean dry and intact. Patient has moderate drainage over the distal one third of the Mepilex dressing Negative Homans bilaterally, negative signs and symptoms of DVT. Const alert, oriented x3 and no apparent distress Assessment & Plan Assessment/Plan (1) Status post revision of total replacement of left knee: PLAN: 1. S/P conversion previous medial compartment left partial knee replacement to a robotic assisted left total knee arthroplasty POD #1 2. Continue Pain Medications: Tylenol and oxycodone. Patient does take Aleve at home. Will resume this postoperatively as well as long as labs are appropriate. 3. DVT Prophylaxis: Take 81 mg aspirin twice daily for 4 weeks postoperatively for DVT prophylaxis. Patient denies past history of DVT or pulmonary embolism. 4. PT/OT: Weightbearing as tolerated with walker. Appreciate recommendations for discharge planning. Patient does wish to want to go home upon discharge. 5. H & H: 10.0/31.8, asymptomatic. Monitoring patient's hemoglobin and hematocrit with postoperative anemia without any intra operative complications. At this time no treatment is required. BMP currently pending. Will repeat labs with CBC tomorrow 6. Currently on doxycycline for 2 weeks postoperatively. Microbiology wound and tissue specimens were reviewed in chart and currently pending. I discussed with the patient potential side effects of doxycycline including sensitivity to the sunlight and increased risk of skin burn. Recommend patient take appropriate precautions. Also recommend patient to take probiotic while on the antibiotic. Patient voiced understanding agreement. 7. Encouraged Incentive Spirometry 8. Patient is aware of postoperative constipation that can occur from 1-3 days postoperatively. Will continue with senna 2 tablets twice daily until first bowel movement. Patient was advised if not having a bowel movement after day 3 she is to contact orthopedics so appropriate change can be made. Patient voiced understanding. 9. Continue postoperative medical treatment per medicine 10. Disposition: At this time I do feel patient would benefit from an additional night so that therapy can appropriately assess her. I would also like to reassess her dressing for any further drainage. Patient has had some dizziness and was requesting a scopolamine patch. I did discuss with her potential side effects and possible removal. She did voiced understanding. We are also awaiting cultures from microbiology. They are currently pending. Plan will be for oral doxycycline for 2 weeks postoperatively unless there is any positive cultures. I did discuss with her the possibility of infectious disease consultation if any changes in her microbiology. She did voiced understanding. Plan will be for probable discharge home tomorrow as long as patient is recovering well. We will repeat labs tomorrow. I have reviewed the [place] Automated Rx Reporting System (OARRS) report for this patient for refill pattern and other prescriber involvement as part of the appropriate surveillance for the provision of acute and chronic controlled medications. The report was requested and reviewed on the date of this entry and was considered in the prescribing process. This dictation was created using voice recognition software. Phonetic and/or grammatical errors may exist PLAN: Plan .
[2024-12-15 07:29] LABS: Anion Gap 6 (5-15); BUN 9 mg/dL (7-18); BUN/Creat Ratio 14.8 RATIO (10-20); Calcium,Total 8.5 mg/dL (8.5-10.1); Chloride 102 mmol/L (98-107); Creatinine, Serum 0.61 mg/dL (0.55-1.02); EST Glomerular Filtration Rate 100 mL/min (>60); Est Glom Filt Rate - Afr Amer 121 mL/min (>60); Estimated Creatinine Clearance 47.91 ml/min; Glucose 92 mg/dL (74-106); Potassium 4.3 mmol/L (3.5-5.1); Sodium Level 134 mmol/L (136-145)
[2024-12-15 10:16] VITALS: BP 94/54; PULSE 78; RESP 16; TEMP 36.8; O2SAT 96
[2024-12-15] MEDS: Multivitamins,Therapeutic Tablet 1 TABLET PO (10:27)
[2024-12-15] MEDS: Cholecalciferol (VIT D3) 25 MCG TABLET (1,000 UNITS) PO (10:27)
[2024-12-15] MEDS: Aspirin 81 MG TAB.CHEW PO ×2 (10:27→20:04)
[2024-12-15] MEDS: Pantoprazole Sodium 40 MG Tablet PO (10:28)
[2024-12-15] MEDS: Senna/Docusate Sodium 1 Tablet 2 TABLET PO ×2 (10:31→21:16)
[2024-12-15] MEDS: Ensure Surgery 237 ML LIQUID PO (10:34)
--- NOTE | 2024-12-15 13:10 | CASEMGMT ---
Addendum entered by Emy Reed 12/15/24 16:13: Spoke with Gilmar from [employer] who states if insurance does not cover FWW, the cost would be approx $67. CLAY MCLAUGHLIN into pt room, pt made aware of this. Pt states that her dtr found one on [employer] much cheaper and would like to proceed with that route. Original Note: CLAY MCLAUGHLIN Assessment: Face to Face with pt for initial transition planning/care coordination assessment. CLAY MCLAUGHLIN introduced self and role at [facility], pt voices understanding and consents to assessment. Pt is A&O x4 and answers all questions appropriately at this time. Pt sitting up in chair eating lunch with dtr Stephanie at bedside. Pt agreeable to assessment with Stephanie present. Care providers, pharmacy, and demographics verified/updated. Admitting Dx: TKA Strata Score: 1 PCP:Adi Specialists:jaskaran Nance; cali Carballo Preferred Pharmacy: [facility] Retail Insurance: MCR, [employer] Prescription Benefit: yes LNOK: Stephanie Mak, dtr; Flores Arizmendi, sister Living Arrangements: Pt lives with son in a single story home with 2+1 step to enter with bilat handrails. Pt reports she was typically indep in ADL/IADLs prior to surgery. Pt son and dtr are able to assist post surgery. Pt denies concerns at home. Transportation: Pt drives self and denies concerns with transportation. Pt family to transport until she can drive again. 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 Pt has outpt therapy set up for Saturday of this week at [facility]. Pt has FWW present at hospital and shows to CLAY MCLAUGHLIN. Pt does not feel this is sturdy and took it to [facility] where she bought it and they could not do anything and stated it was not under warranty. Pt states she did receive this in the last 5 years through her insurance. She is aware that the insurance only pays for one frandy 5 years. Pt wants this RN LISSETTE to check and see if it has been within 5 years. Provided pt with a local verbal in network list of DME companies, pt chose [employer]. Emailed with Gilmar from [employer] to see if this information could be obtained and then a referral sent via careport. Unable to have rx signed until morning rounds by ortho. Will await returned response. Pt reports if it is not covered, she will obtain on her own. Pt states no further concerns/needs. CM to follow. Advised pt to ask CM if any further questions/concerns/needs arise, voices understanding. Pt Goal: Home with outpt therapy Plan: Home with outpt therapy, check on walker eligibility Ilda WILLIAMSON CM
--- NOTE | 2024-12-15 14:11 | CASEMGMT ---
Met with patient to complete JAIN form. JAIN form explained to patient who voiced understanding and signed form. Original form placed in pt?s chart and copy provided to patient. Radha Abdalla, Discharge Planning Asst
[2024-12-15 15:19] VITALS: BP 102/51; PULSE 79; RESP 18; TEMP 36.5; O2SAT 97
[2024-12-15] MEDS: Calcium Carb/Vitamin D 1 TABLET Tablet PO (15:25)
[2024-12-15] MEDS: Doxycycline 100 MG CAPSULE PO ×2 (15:29→21:16)
--- NOTE | 2024-12-15 16:05 | PCM.PN.HOSP ---
Reason for Visit Reason for Visit: Diagnoses Unspecified osteoarthritis, unspecified site (12/15/24) Encounter for other preprocedural examination (12/15/24) Presence of left artificial knee joint (12/15/24) Objective Data Objective Data Vital Signs: Vital Signs Temp Pulse Resp BP Pulse Ox O2 Del Method O2 Flow Rate 97.7 F L 79 18 102/51 L 97 Room Air 2 12/15/24 15:19 12/15/24 15:19 12/15/24 15:19 12/15/24 15:19 12/15/24 15:19 12/15/24 15:19 12/14/24 23:56 Oxygen Flow Rate (L/min) 2 Oxygen Delivery Method Room Air Weight: 155 lb 13.869 oz Body Mass Index (BMI) 29.4 Intake & Output: Intake and Output for Last 24 Hours 12/13/24 12/14/24 12/15/24 23:59 23:59 23:59 Intake Total 2742 / 2742 250 / 250 Output Total 600 / 600 500 / 500 Balance 2142 / 2142 -250 / -250 Lab / Micro Data 12/15/24 06:22 12/15/24 06:22 Labs: Laboratory Results - last 24 hr 12/15/24 06:22: WBC 6.7, RBC 3.45 L, Hgb 10.0 L, Hct 31.8 L, MCV 92.2, MCH 29.0, MCHC 31.4 L, RDW Std Deviation 42.7, RDW Coeff of Brook 12.8, Plt Count 224, MPV 9.6, Sodium 134 L, Potassium 4.3, Chloride 102, Carbon Dioxide 25.0, Anion Gap 6, BUN 9, Creatinine 0.61, Estim Creat Clear Calc 47.91, Est GFR (MDRD) Af Amer 121, Est GFR (MDRD) Non-Af 100, BUN/Creatinine Ratio 14.8, Glucose 92, Calcium 8.5 Micro: Microbiology 12/14/24 Unknown Tissue - Knee Gram Stain - Final 12/14/24 Unknown Tissue - Knee Wound Culture - Preliminary No growth-Final to follow 12/14/24 Unknown Tissue - Knee Gram Stain - Final 12/14/24 Unknown Tissue - Knee Wound Culture - Preliminary No growth-Final to follow 12/14/24 Unknown Tissue - Knee Gram Stain - Final 12/14/24 Unknown Tissue - Knee Wound Culture - Preliminary No growth-Final to follow 11/25/24 13:58 Swab (Method) Nasal Screen MRSA/MSSA - Final Physical Exam Narrative Seen and examined Patient states she has mild staining on dressing therefore Dr. Sidhu wants her to stay. Otherwise no acute complaint. She moved her bowel 1 day before admission on 12/13/2024 Physical exam General: Alert, Oriented x3, Cooperative HEENT: Atraumatic, PERRLA, EOMI, Normocephalic Oral: No Gingival or Mucosal Lesions/ Ulcerations Neck: Supple, No JVD, Negative Carotid Bruits Chest wall/Lungs: Air entry diminished in bilateral lung bases. Systolic murmur Cardiovascular: Regular rate, Regular Rhythm, Normal S1, Normal S2, No M/G/R Abdomen: Bowel Sounds Present, Soft, Non Tender, Non-Distended : No dysuria. No renal angle tenderness. No suprapubic tenderness. Extremities: No edema, Capillary Refill Less than 3 Seconds Skin: mild staining on the dressing of left knee. No active bleeding or hematoma. Musculoskeletal: ROM restricted on left knee, operative side. No Tenderness to Palpation of Joints or Extremities Neurological: Cranial nerves II-XII grossly intact, DTR 2+/4. No acute focal neurological deficit. Psych/Mental Status: Normal Affect, Appropriate. Assessment & Plan Assessment/Plan (1) Osteoarthritis: PLAN: Plan The patient is an 84-year-old female is being seen as a consult for perioperative management for total knee replacement by Dr. Nance #1. Severe Osteoarthritis, left knee with failed previous left partial knee replacement with progression of osteoarthritic disease: Patient had previous surgery as mentioned in arthritis progress therefore was converted to robotic assisted left total knee replacement. Has mild staining on the dressing. Observe tonight. No active bleeding or hematoma. Continue PT and OT, incentive spirometry. DVT prophylaxis as per the attending surgeon. #2. Postoperative hypoxemia, resolved: Postoperatively patient with hypoxia in the PACU, slowly improving, was put on 2 L of oxygen. Currently pulse ox 97% on room air. Hypoxia resolved. Denies history of sleep apnea. #3. GERD with eosinophilic esophagitis history: continue patient home PPI regimen daily as well as nightly famotidine, may have Mylanta as needed. #4. Allergic rhinitis: Patient utilizes cetirizine only as needed, may hold unless needed. #5. Psoriasis: Patient uses as needed betamethasone topical agents, may hold unless necessary. #6. DVT prophylaxis: SCDs, chemoprophylaxis per surgery discretion given recent OR. Charges/Coding Visit Charges Inpatient E&M: 66573 Subs Hosp L2
[2024-12-15] MEDS: Ondansetron 4 MG/2 ML Vial IV (18:46)
[2024-12-15] MEDS: 0.9% Saline Lock 10 ML Syringe IV ×2 (18:46→21:16)
[2024-12-15 20:00] VITALS: O2SAT 96
[2024-12-15 21:11] VITALS: BP 143/64; PULSE 85; RESP 18; TEMP 36.8; O2SAT 95
[2024-12-15] MEDS: Vibegron 75 MG TABLET PO (21:16)
[2024-12-15] MEDS: Famotidine 20 MG Tablet PO (21:18)
[2024-12-16 03:07] VITALS: BP 155/77; PULSE 95; RESP 16; TEMP 36.6; O2SAT 95
[2024-12-16] MEDS: 0.9% Saline Lock 10 ML Syringe IV ×3 (03:10→14:47)
[2024-12-16] MEDS: Ondansetron 4 MG/2 ML Vial IV (03:10)
[2024-12-16] MEDS: proMETHazine 25 MG/ML Syringe 12.5 MG IM (04:12)
[2024-12-16 05:39] LABS: Hemoglobin 10.4 g/dL (12.0-15.0); Mean Corp Hgb Conc 33.5 g/dL (32-36); Mean Corpuscular Hgb 30.1 pg (27.0-32.0); Mean Corpuscular Volume 89.6 fL (81-99); Mean Platelet Vol. 10.1 fl (6.2-12.0); Platelet Count 247 K/mm3 (150-450); RBC Distribution Width CV 12.3 % (11.6-14.6); RBC Distribution Width SD 40.4 fl (35.1-43.9); Red Blood Count 3.46 M/mm3 (4.2-5.4); White Blood Count 6.4 K/mm3 (4.4-11.0)
[2024-12-16] MEDS: proCHLORPERazine 10 MG/2 ML Vial IV (06:46)
[2024-12-16 07:50] VITALS: BP 174/75; PULSE 84; RESP 14; TEMP 37.2; O2SAT 96
[2024-12-16 08:25] VITALS: O2SAT 95
[2024-12-16] MEDS: Multivitamins,Therapeutic Tablet 1 TABLET PO (08:28)
[2024-12-16] MEDS: Ensure Surgery 237 ML LIQUID PO (08:28)
[2024-12-16] MEDS: Acetaminophen 500 MG Tablet 1000 MG PO ×2 (08:28→17:02)
[2024-12-16] MEDS: Aspirin 81 MG TAB.CHEW PO ×2 (08:28→17:02)
--- NOTE | 2024-12-16 10:45 | PCM.PN.ORT ---
Subjective Subjective Patient is an 84-year-old female who appears uncomfortable in bed. Patient was up and working with physical therapy yesterday but today states that there is no way that she could walk today. Patient states that she can even make it to the bathroom and has had to use a bedside commode. Patient states when she stands up her pain is a 10 out of 10. Patient states that she was still nauseous during the night and had to vomit. Patient denies any shortness of breath, chest pain, calf pain, fever, chills, dizziness. Patient denies having a bowel movement to this point. Patient states that she has been able to urinate. Patient states that at this point she does not feel that she could go home as there is no way that she would be able to make in her bed, make it to the toilet, or walk at all. Objective Data Objective Data Vital Signs: Vital Signs Temp Pulse Resp BP Pulse Ox O2 Del Method O2 Flow Rate 99 F 84 14 174/75 H 95 Room Air 2 12/16/24 07:50 12/16/24 07:50 12/16/24 07:50 12/16/24 07:50 12/16/24 08:25 12/16/24 08:25 12/14/24 23:56 Oxygen Flow Rate (L/min) 2 Oxygen Delivery Method Room Air Weight: 70.7 kg Body Mass Index (BMI) 29.4 Intake & Output: Intake and Output for Last 24 Hours 12/14/24 12/15/24 12/16/24 23:59 23:59 23:59 Intake Total 2742 / 2742 650 / 650 Output Total 600 / 600 500 / 500 Balance 2142 / 2142 150 / 150 Lab / Micro Data 12/16/24 04:44 12/15/24 06:22 Labs: Laboratory Results - last 24 hr 12/16/24 04:44: WBC 6.4, RBC 3.46 L, Hgb 10.4 L, Hct 31.0 L, MCV 89.6, MCH 30.1, MCHC 33.5 D, RDW Std Deviation 40.4, RDW Coeff of Brook 12.3, Plt Count 247, MPV 10.1 Micro: Microbiology 12/14/24 Unknown Tissue - Knee Gram Stain - Final 12/14/24 Unknown Tissue - Knee Wound Culture - Preliminary No growth-Final to follow 12/14/24 Unknown Tissue - Knee Gram Stain - Final 12/14/24 Unknown Tissue - Knee Wound Culture - Preliminary No growth-Final to follow 12/14/24 Unknown Tissue - Knee Gram Stain - Final 12/14/24 Unknown Tissue - Knee Wound Culture - Preliminary No growth-Final to follow 11/25/24 13:58 Swab (Method) Nasal Screen MRSA/MSSA - Final Physical Exam Narrative 1. ARIELLE hose in place bilaterally. 2. SCDs in place bilaterally. 3. Dressing is with drainage at the distal one third. 4. Dorsiflexion and plantarflexion are performed actively without pain or restriction. 5. Sensation intact to light touch. 6. Neurovascularly intact. 7. Patient's bilateral calves are with pain when squeezing. Positive Homans bilaterally Const alert, oriented x3 and no apparent distress Assessment & Plan Assessment/Plan (1) Status post revision of total replacement of left knee: PLAN: 1. Continue pain medications: Tylenol and tramadol. Patient states that tramadol is adequately controlling her pain when she takes it. Patient was educated to stay on top of her pain in order to treat her pain so she is able to walk. patient and her son voiced understanding. Patient states that she does take Aleve at home for pain as well. 2. DVT prophylaxis: Take 81 mg aspirin twice daily for 4 weeks postoperatively for blood clot prevention. Patient denies history of blood clot, DVT, PE. 3. Constipation: Patient was instructed to take senna as instructed until her first bowel movement to decrease risk of infection following surgery patient was instructed if they have not yet had a bowel movement on postop day 3 to call our office for reevaluation. 4. PT/OT: Patient is weightbearing as tolerated with a walker. Patient does have outpatient physical therapy scheduled for Saturday which she tells me that she does not see that happening. Patient states that she does still want to go home but if she does not continue to get better and feel that she is able to make it to the toilet or her bed she would consider going to an extended care facility. Appreciate recommendations for discharge planning. 5. H&H: 10.4/31.0, asymptomatic. Labs are reviewed today. At this time we are monitoring hemoglobin and hematocrit with postoperative anemia. Patient's hemoglobin has increased from yesterday and at this time requires no treatment. 6. Patient is currently on doxycycline for 2 weeks postoperatively. Microbiology was reviewed in the chart today. Patient was educated on the potential side effects of doxycycline including sensitivity to the sunlight including increased risk of burning. Patient was also educated on the use of a probiotic while taking antibiotic. Patient voiced understanding. 7. Incentive spirometry: Patient was encouraged to use incentive spirometer every hour that they are awake for the first week to exercise lung and decrease risk of postoperative infection. 8. Continue postoperative medical treatment per medicine. 9. Patient will follow-up per postoperative instructions. 10. Disposition: At this time I do feel that the patient would benefit from another night stay. Patient is unable to make it to the restroom and is still having to use a bedside commode. Patient is unable to walk at this time and has not yet worked with physical therapy today. Patient has had some nausea and vomiting through the night. Patient was educated on the potential of having to be moved to a extended care facility if her symptoms do not improve. Patient voiced understanding. Patient will be on doxycycline for 2 weeks postoperatively. Patient was educated on the importance of staying ahead of her pain and using a pain medication that adequately controls her pain. Patient is happy with the tramadol at this time and voiced understanding about staying ahead of the pain. Patient is still hopeful that she will be able to go home but has been educated on the potential of an extended care facility without improvement.
[2024-12-16] MEDS: traMADol 50 MG Tablet PO (10:48)
[2024-12-16] MEDS: Doxycycline 100 MG CAPSULE PO ×2 (10:55→21:45)
[2024-12-16] MEDS: Cholecalciferol (VIT D3) 25 MCG TABLET (1,000 UNITS) PO (10:55)
[2024-12-16] MEDS: Senna/Docusate Sodium 1 Tablet 2 TABLET PO ×2 (10:55→21:45)
[2024-12-16] MEDS: Polyethylene Glycol 3350 17 GM PACKET PO (10:55)
[2024-12-16] MEDS: Pantoprazole Sodium 40 MG Tablet PO (10:55)
--- NOTE | 2024-12-16 11:04 | VDLE_ITS ---
Reason For Study: Bilateral leg pain RIGHT LEFT GSV is normal. GSV is normal. CFV is compressible, spontaneous, phasic, CFV is compressible, spontaneous, phasic, competent and demonstrates normal competent, and demonstrates normal augmentation. augmentation. FV is compressible, spontaneous, phasic, FV is compressible, spontaneous, phasic, competent and demonstrates normal competent and demonstrates normal augmentation. augmentation. POP V is compressible, spontaneous, phasic, POP V is compressible, spontaneous, phasic, competent and demonstrates normal competent and demonstrates normal augmentation. augmentation. T/P Trunk is compressible. T/P Trunk is compressible. PTV is compressible. PTV is compressible. RT PerV is compressible. LT PerV is compressible. Procedure This is a venous duplex using B-mode, color flow and spectral Doppler. Exam performed portable in patient room. A preliminary report was called and/or faxed to Zain WILLIAMSON. VL/Venous Duplex US - Paco Extrem Interpretation Summary Deep veins of the bilateral lower extremities are patent and compressible segme ntally. There is no evidence of bilateral lower extremity deep vein thrombosis. The bilateral great saphenous veins appear patent and compressible segmentally. Ordering Physician: Mirta Sharp Referring Physician: Aneudy Joshi Performed By: Nicole Maxwell RVT and Student
[2024-12-16] MEDS: Calcium Carb/Vitamin D 1 TABLET Tablet PO (12:17)
--- NOTE | 2024-12-16 13:27 | NURSING ---
All documentation by student nurse Tonya Wright reviewed by acute care certified nursing assistant Evette CROWEN, RN.
--- NOTE | 2024-12-16 13:33 | CASEMGMT ---
Discussed pt status with Ortho PA this morning. Will cont to monitor pt for dc planning. No dc this date.
[2024-12-16 13:43] VITALS: BP 160/71; PULSE 86; RESP 12; TEMP 37.1; O2SAT 95
--- NOTE | 2024-12-16 15:41 | PCM.PN.HOSP ---
Reason for Visit Reason for Visit: Diagnoses Unspecified osteoarthritis, unspecified site (12/15/24) Encounter for other preprocedural examination (12/15/24) Presence of left artificial knee joint (12/15/24) Objective Data Objective Data Vital Signs: Vital Signs Temp Pulse Resp BP Pulse Ox O2 Del Method O2 Flow Rate 98.8 F 86 12 160/71 H 95 Room Air 2 12/16/24 13:43 12/16/24 13:43 12/16/24 13:43 12/16/24 13:43 12/16/24 13:43 12/16/24 13:43 12/14/24 23:56 Oxygen Flow Rate (L/min) 2 Oxygen Delivery Method Room Air Weight: 155 lb 13.869 oz Body Mass Index (BMI) 29.4 Intake & Output: Intake and Output for Last 24 Hours 12/14/24 12/15/24 12/16/24 23:59 23:59 23:59 Intake Total 2742 / 2742 650 / 650 Output Total 600 / 600 500 / 500 Balance 2142 / 2142 150 / 150 Lab / Micro Data 12/16/24 04:44 12/15/24 06:22 Labs: Laboratory Results - last 24 hr 12/16/24 04:44: WBC 6.4, RBC 3.46 L, Hgb 10.4 L, Hct 31.0 L, MCV 89.6, MCH 30.1, MCHC 33.5 D, RDW Std Deviation 40.4, RDW Coeff of Brook 12.3, Plt Count 247, MPV 10.1 Micro: Microbiology 12/14/24 Unknown Tissue - Knee Gram Stain - Final 12/14/24 Unknown Tissue - Knee Wound Culture - Preliminary No growth-Final to follow 12/14/24 Unknown Tissue - Knee Gram Stain - Final 12/14/24 Unknown Tissue - Knee Wound Culture - Preliminary No growth-Final to follow 12/14/24 Unknown Tissue - Knee Gram Stain - Final 12/14/24 Unknown Tissue - Knee Wound Culture - Preliminary No growth-Final to follow 11/25/24 13:58 Swab (Method) Nasal Screen MRSA/MSSA - Final Physical Exam Narrative Seen and examined Patient has difficulty in moving around and activities of daily living. PT and OT on board. There is mild discharge and surrounding bruise on the dressing but no hematoma. No BM for 2 days Physical exam General: Alert, Oriented x3, Cooperative HEENT: Atraumatic, PERRLA, EOMI, Normocephalic Oral: No Gingival or Mucosal Lesions/ Ulcerations Neck: Supple, No JVD, Negative Carotid Bruits Chest wall/Lungs: Air entry diminished in bilateral lung bases. Systolic murmur Cardiovascular: Regular rate, Regular Rhythm, Normal S1, Normal S2, No M/G/R Abdomen: Bowel Sounds Present, Soft, Non Tender, Non-Distended : No dysuria. No renal angle tenderness. No suprapubic tenderness. Extremities: No edema, Capillary Refill Less than 3 Seconds Skin: mild staining on the dressing of left knee. No active bleeding or hematoma. Musculoskeletal: ROM restricted on left knee, operative side. No Tenderness to Palpation of Joints or Extremities Neurological: Cranial nerves II-XII grossly intact, DTR 2+/4. No acute focal neurological deficit. Psych/Mental Status: Normal Affect, Appropriate. Assessment & Plan Assessment/Plan (1) Osteoarthritis: PLAN: Plan The patient is an 84-year-old female is being seen as a consult for perioperative management for total knee replacement by Dr. Nance #1. Severe Osteoarthritis, left knee with failed previous left partial knee replacement with progression of osteoarthritic disease: Patient had previous surgery as mentioned in arthritis progress therefore was converted to robotic assisted left total knee replacement. Has mild staining on the dressing. Observe tonight. No active bleeding or hematoma. Continue PT and OT, incentive spirometry. DVT prophylaxis as per the attending surgeon. 5: No BM for 2 days. On senna S and MiraLAX. Frequency of MiraLAX increased. No significant hematoma. On aspirin 81 mg twice daily. Patient is hemodynamically stable for discharge from medicine point of view #2. Postoperative hypoxemia, resolved: Postoperatively patient with hypoxia in the PACU, slowly improving, was put on 2 L of oxygen. Currently pulse ox 97% on room air. Hypoxia resolved. Denies history of sleep apnea. #3. GERD with eosinophilic esophagitis history: continue patient home PPI regimen daily as well as nightly famotidine, may have Mylanta as needed. #4. Allergic rhinitis: Patient utilizes cetirizine only as needed, may hold unless needed. #5. Psoriasis: Patient uses as needed betamethasone topical agents, may hold unless necessary. #6. DVT prophylaxis: SCDs, chemoprophylaxis per surgery discretion given recent OR. Charges/Coding Visit Charges Inpatient E&M: 10838 Subs Hosp L2
--- NOTE | 2024-12-16 16:07 | NURSING ---
All documentation by student nurse Tonya Wright reviewed by clinical nursing director Evette CROWEN, RN.
[2024-12-16] MEDS: Ondansetron ODT 4 MG Tablet 8 MG PO (16:59)
[2024-12-16] MEDS: Chlorthalidone 50 MG Tablet 12.5 MG PO (17:00)
[2024-12-16 21:41] VITALS: BP 157/81; PULSE 78; RESP 18; TEMP 36.6; O2SAT 97
[2024-12-16] MEDS: Famotidine 20 MG Tablet PO (21:45)
[2024-12-16] MEDS: Vibegron 75 MG TABLET PO (21:45)
[2024-12-17 01:05] VITALS: BP 156/77; PULSE 80; RESP 16; TEMP 36.8; O2SAT 96
[2024-12-17] MEDS: Acetaminophen 500 MG Tablet 1000 MG PO ×3 (01:07→16:07)
[2024-12-17 05:29] VITALS: BP 146/72; PULSE 85; RESP 18; TEMP 36.6; O2SAT 97
[2024-12-17] MEDS: traMADol 50 MG Tablet PO ×2 (05:40→14:30)
[2024-12-17 08:00] VITALS: BP 140/70; PULSE 74; RESP 18; TEMP 36.8; O2SAT 98
[2024-12-17] MEDS: Aspirin 81 MG TAB.CHEW PO ×2 (08:23→16:07)
[2024-12-17] MEDS: Multivitamins,Therapeutic Tablet 1 TABLET PO (08:23)
[2024-12-17] MEDS: Chlorthalidone 50 MG Tablet 12.5 MG PO (08:24)
[2024-12-17] MEDS: Doxycycline 100 MG CAPSULE PO ×2 (08:24→21:08)
[2024-12-17] MEDS: Ensure Surgery 237 ML LIQUID PO (08:24)
[2024-12-17] MEDS: Cholecalciferol (VIT D3) 25 MCG TABLET (1,000 UNITS) PO (08:24)
[2024-12-17] MEDS: Pantoprazole Sodium 40 MG Tablet PO (08:25)
[2024-12-17] MEDS: Senna/Docusate Sodium 1 Tablet 2 TABLET PO ×2 (08:25→21:08)
[2024-12-17] MEDS: Polyethylene Glycol 3350 17 GM PACKET PO (08:29)
--- NOTE | 2024-12-17 10:29 | CASEMGMT ---
Addendum entered by Emy Reed 12/17/24 10:50: CLAY MCLAUGHLIN requested to room, pt dtr now present. Discussed with pt that [facility] has beds and they would accept her for care per . Pt and family have agreed that this is the option that they would like to proceed with. Message sent to Kimberly via backline on update of plan. Original Note: Received tc from PA, aware therapy has not seen pt yet and CLAY MCLAUGHLIN to meet with pt. CLAY MCLAUGHLIN into pt room, therapy just finished with patient and respiratory as well as pt son is in the room. Per [employer], pt ambulating is safe to return home but not steps. Gait belt recommended. Pt son lives with pt but works humanities department chair. Pt states she wants to go home but would like to stay another night at the hospital. Pt states she would want [facility] if she goes home. Pt states she may be willing to stay at [facility] for rehab meaning TCU. CLAY MCLAUGHLIN spoke with SW to check bed availability. Pt and son to discuss and CLAY MCLAUGHLIN to check back.
[2024-12-17] MEDS: Ondansetron ODT 4 MG Tablet 8 MG PO (12:08)
[2024-12-17] MEDS: Calcium Carb/Vitamin D 1 TABLET Tablet PO (12:08)
--- NOTE | 2024-12-17 12:40 | PCM.PN.HOSP ---
Reason for Visit Reason for Visit: Diagnoses Unspecified osteoarthritis, unspecified site (12/15/24) Encounter for other preprocedural examination (12/15/24) Presence of left artificial knee joint (12/15/24) Subjective Subjective Saw patient at bedside this morning, daughter present. Patient was sitting back comfortably in bed, conversing normally, in no acute distress. Noted minimal left knee pain at rest but does have significant pain with ambulation. Feels like the medications have been somewhat helpful for the pain. Does have some ongoing nausea but states eating some food this morning was helpful. Notes that they are planning on discharge to the TCU for further therapy once medically ready. No other acute concerns this morning. Objective Data Objective Data Vital Signs: Vital Signs Temp Pulse Resp BP Pulse Ox O2 Del Method O2 Flow Rate 98.2 F 74 18 140/70 H 98 Room Air 2 12/17/24 08:00 12/17/24 08:00 12/17/24 08:00 12/17/24 08:00 12/17/24 08:00 12/17/24 10:00 12/14/24 23:56 Oxygen Flow Rate (L/min) 2 Oxygen Delivery Method Room Air Weight: 70.7 kg Body Mass Index (BMI) 29.4 Intake & Output: Intake and Output for Last 24 Hours 12/15/24 12/16/24 12/17/24 23:59 23:59 23:59 Intake Total 650 / 650 1154.5 / 1154.5 950 / 950 Output Total 500 / 500 Balance 150 / 150 1154.5 / 1154.5 950 / 950 Lab / Micro Data 12/16/24 04:44 12/15/24 06:22 Micro: Microbiology 12/14/24 Unknown Tissue - Knee Gram Stain - Final 12/14/24 Unknown Tissue - Knee Wound Culture - Preliminary No growth-Final to follow 12/14/24 Unknown Tissue - Knee Anaerobic Culture - Preliminary No growth in 48 hours. 12/14/24 Unknown Tissue - Knee Gram Stain - Final 12/14/24 Unknown Tissue - Knee Wound Culture - Preliminary No growth-Final to follow 12/14/24 Unknown Tissue - Knee Anaerobic Culture - Preliminary No growth in 48 hours. 12/14/24 Unknown Tissue - Knee Gram Stain - Final 12/14/24 Unknown Tissue - Knee Wound Culture - Preliminary No growth-Final to follow 12/14/24 Unknown Tissue - Knee Anaerobic Culture - Preliminary No growth in 48 hours. 11/25/24 13:58 Swab (Method) Nasal Screen MRSA/MSSA - Final Physical Exam Const alert, oriented x3, no apparent distress and average body habitus Constitutional Narrative: Pleasant elderly female, mildly fatigued appearing but otherwise sitting back comfortably in bed, conversing normally, in no acute distress. General Appearance: cooperative and comfortable HEENT normocephalic, head/scalp atraumatic, hearing grossly normal bilaterally, nasal mucous membranes and turbinates normal and moist oral mucous membranes Eyes PERRL, EOMs intact bilaterally and conjunctivae normal Neck full ROM Chest inspection of chest normal Resp normal respiratory effort, normal air movement, no use of accessory muscles and clear to auscultation bilaterally Cardio regular rate, regular rhythm, no murmurs and peripheral pulses 2+ throughout GI normal to inspection, nondistended, normoactive bowel sounds, soft to palpation, non-tender and non-distended Back/Spine normal ROM Extremity Extremity Narrative: Left knee with brace in place. Skin no rashes or lesions noted Psych mental status grossly normal Assessment & Plan Assessment/Plan (1) Status post revision of total replacement of left knee: PLAN: Plan Patient is an 84-year-old female who presented to [facility] on 12/14/2024 for planned left knee replacement. Medicine consulted postoperatively for medical management. 1. 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 Orthopedic surgery primary. S/p left total knee replacement with Dr. Nance on 12/14. Tolerated procedure well, no intraoperative complications. Has had fairly significant pain especially with weightbearing postoperatively. PT/OT/case management following. Planning for discharge to TCU, likely tomorrow. 2. Mild postoperative constipation with nausea ? Presume secondary to pain medications and decreased mobility postoperatively. Treating with scheduled senna and MiraLAX. Continue other as needed medications for symptom management. 3. GERD with history of eosinophilic esophagitis ? Continue home PPI and nightly famotidine. 4. Allergic rhinitis ? Utilizes cetirizine only as needed, may hold unless needed. 5. Psoriasis ? Utilizes betamethasone topical agents as needed, may hold unless needed. Total clinical time spent by myself addressing the patient's medical issues, reviewing all the data, and collaborating with patient's care team: 25 minutes. Charges/Coding Visit Charges Inpatient E&M: 04592 Subs Hosp L1
--- NOTE | 2024-12-17 12:58 | CASEMGMT ---
Social Work- Pt would like referral to TCU. SW completed referral. Pt accepted and can admit tomorrow. Pt updated. Physician updated. Plan: TCU; skilled level of care HUONG Ortega
[2024-12-17 13:00] VITALS: BP 141/73; PULSE 84; RESP 15; TEMP 36.9; O2SAT 94
--- NOTE | 2024-12-17 13:03 | PCM.PN.ORT ---
Subjective Subjective The patient was sitting in bed eating lunch with family present upon examination. Patient denies any chest pain, shortness of breath, dizziness, lightheadedness, or calf pain. Pain is controlled on medications. No adverse overnight events. Patient states she gets occasional nausea. She cannot tell me if it is after a certain medication or eating. Patient has had a very small bowel movement and continues to be on stool softener. Patient did get approval to go to the transitional care unit at [facility]. Plan will be for discharge tomorrow. She does feel her pain is getting better each day. She did a little better today with physical therapy. Objective Data Objective Data Vital Signs: Vital Signs Temp Pulse Resp BP Pulse Ox O2 Del Method O2 Flow Rate 98.2 F 74 18 140/70 H 98 Room Air 2 12/17/24 08:00 12/17/24 08:00 12/17/24 08:00 12/17/24 08:00 12/17/24 08:00 12/17/24 10:00 12/14/24 23:56 Oxygen Flow Rate (L/min) 2 Oxygen Delivery Method Room Air Weight: 70.7 kg Body Mass Index (BMI) 29.4 Intake & Output: Intake and Output for Last 24 Hours 12/15/24 12/16/24 12/17/24 23:59 23:59 23:59 Intake Total 650 / 650 1154.5 / 1154.5 950 / 950 Output Total 500 / 500 Balance 150 / 150 1154.5 / 1154.5 950 / 950 Lab / Micro Data 12/16/24 04:44 12/15/24 06:22 Micro: Microbiology 12/14/24 Unknown Tissue - Knee Gram Stain - Final 12/14/24 Unknown Tissue - Knee Wound Culture - Preliminary No growth-Final to follow 12/14/24 Unknown Tissue - Knee Anaerobic Culture - Preliminary No growth in 48 hours. 12/14/24 Unknown Tissue - Knee Gram Stain - Final 12/14/24 Unknown Tissue - Knee Wound Culture - Preliminary No growth-Final to follow 12/14/24 Unknown Tissue - Knee Anaerobic Culture - Preliminary No growth in 48 hours. 12/14/24 Unknown Tissue - Knee Gram Stain - Final 12/14/24 Unknown Tissue - Knee Wound Culture - Preliminary No growth-Final to follow 12/14/24 Unknown Tissue - Knee Anaerobic Culture - Preliminary No growth in 48 hours. 11/25/24 13:58 Swab (Method) Nasal Screen MRSA/MSSA - Final Physical Exam Narrative Vital signs stable and afebrile. SCDs and ARIELLE hose are in place bilaterally Patient is able to plantarflex and dorsiflex actively. Sensation is intact to light touch to saphenous, sural, superficial and deep peroneal, and tibial distribution. Mepilex dressing has stable distal one third drainage with remaining dressing clean dry and intact Negative Homans bilaterally, negative signs and symptoms of DVT. Const alert, oriented x3 and no apparent distress Assessment & Plan Assessment/Plan (1) Status post revision of total replacement of left knee: PLAN: 1. S/P conversion left unicompartmental knee replacement to a total knee arthroplasty POD #3 2. Continue Pain Medications: Tylenol and tramadol. Since patient has been better at taking the tramadol her pain has been better controlled. We discussed the importance of keeping her pain well-managed to tolerate physical therapy. She voiced understanding. 3. DVT Prophylaxis: Take 81 mg aspirin twice daily for 4 weeks postoperatively for DVT prophylaxis. Patient denies past history of DVT or pulmonary embolism. 4. PT/OT: Weightbearing as tolerated with walker 5. Currently on doxycycline for 2 weeks postoperatively. Microbiology wound and tissue specimens were reviewed in chart and there is currently no growth or organisms seen today. I discussed with the patient potential side effects of doxycycline including sensitivity to the sunlight and increased risk of skin burn. Recommend patient take appropriate precautions. Also recommend patient to take probiotic while on the antibiotic. Patient voiced understanding agreement. 6. Encouraged Incentive Spirometry 7. Patient is aware of postoperative constipation that can occur from 1-3 days postoperatively. Will continue with senna 2 tablets twice daily until first bowel movement. Patient was advised if not having a bowel movement after day 3 she is to contact orthopedics so appropriate change can be made. Patient voiced understanding. Patient had a very small bowel movement today. We will continue with current plan. 8. Continue postoperative medical treatment per medicine 9. Disposition: Case was discussed with case management and patient does have approval for the transitional care unit at [facility]. Patient must meet 3 midnight stay and is okay for discharge tomorrow. Patient will continue to focus and work on exercises with physical therapy. She will continue with the pain management plan above. Patient appears to be stable from orthopedic standpoint. Will use Zofran as needed for nausea. I did discuss with the patient to try to determine time of day that she is getting nauseous if it is with medications or food. She did voiced understanding. This dictation was created using voice recognition software. Phonetic and/or grammatical errors may exist.
[2024-12-17] MEDS: Scopolamine 1mg/72hr Patch 1 PATCH TD (16:05)
[2024-12-17 20:00] VITALS: BP 149/78; PULSE 84; RESP 18; TEMP 36.7; O2SAT 96
[2024-12-17] MEDS: Vibegron 75 MG TABLET PO (21:08)
[2024-12-17] MEDS: Famotidine 20 MG Tablet PO (21:08)
[2024-12-18] MEDS: Acetaminophen 500 MG Tablet 1000 MG PO ×2 (00:45→08:59)
[2024-12-18 02:54] VITALS: BP 141/62; PULSE 73; RESP 16; TEMP 36.5; O2SAT 95
--- NOTE | 2024-12-18 07:17 | PN.ORTHO_ITS ---
Subjective Subjective Patient appears to be comfortable in bed. Patient has been up and working with physical therapy. Patient states that she has finally had a bowel movement last night. Patient denies any shortness of breath, chest pain, calf pain, fever, chills, dizziness, vomiting. Patient admits to having nausea yesterday but feels that is getting better. Patient denies any adverse events overnight. Patient did get approval to go to the transitional care unit at [facility]. Will plan to discharge today to transitional care unit. Patient feels that she is getting better every day. Objective Data Objective Data Vital Signs: Vital Signs Temp Pulse Resp BP Pulse Ox O2 Del Method O2 Flow Rate 97.7 F L 73 16 141/62 H 95 Room Air 2 12/18/24 02:54 12/18/24 02:54 12/18/24 02:54 12/18/24 02:54 12/18/24 02:54 12/18/24 02:54 12/14/24 23:56 Oxygen Flow Rate (L/min) 2 Oxygen Delivery Method Room Air Weight: 70.7 kg Body Mass Index (BMI) 29.4 Intake & Output: Intake and Output for Last 24 Hours 12/16/24 12/17/24 12/18/24 23:59 23:59 23:59 Intake Total 1154.5 / 1154.5 1500 / 1500 Balance 1154.5 / 1154.5 1500 / 1500 Lab / Micro Data 12/16/24 04:44 12/15/24 06:22 Micro: Microbiology 12/14/24 Unknown Tissue - Knee Gram Stain - Final 12/14/24 Unknown Tissue - Knee Wound Culture - Preliminary No growth-Final to follow 12/14/24 Unknown Tissue - Knee Anaerobic Culture - Preliminary No growth in 48 hours. 12/14/24 Unknown Tissue - Knee Gram Stain - Final 12/14/24 Unknown Tissue - Knee Wound Culture - Preliminary No growth-Final to follow 12/14/24 Unknown Tissue - Knee Anaerobic Culture - Preliminary No growth in 48 hours. 12/14/24 Unknown Tissue - Knee Gram Stain - Final 12/14/24 Unknown Tissue - Knee Wound Culture - Preliminary No growth-Final to follow 12/14/24 Unknown Tissue - Knee Anaerobic Culture - Preliminary No growth in 48 hours. 11/25/24 13:58 Swab (Method) Nasal Screen MRSA/MSSA - Final Radiography Diagnostic Testing: Radiology Impression Venous Doppler Study 12/16/24 11:04 Interpretation Summary Deep veins of the bilateral lower extremities are patent and compressible segmentally. There is no evidence of bilateral lower extremity deep vein thrombosis. The bilateral great saphenous veins appear patent and compressible segmentally. Ordering Physician: Mirta Sharp Referring Physician: Aneudy Joshi Performed By: Nicole Maxwell RVT and Student Physical Exam Narrative 1. ARIELLE hose in place bilaterally. 2. SCDs in place bilaterally. 3. Dressing is with drainage over the distal one third of Mepilex dressing. 4. Dorsiflexion plantarflexion are performed actively without pain or restriction. 5. Sensation intact to light touch. 6. Neurovascularly intact. 7. Negative Homans bilaterally. 8. Vital signs stable and afebrile. Const alert, oriented x3 and no apparent distress Assessment & Plan Assessment/Plan (1) Status post revision of total replacement of left knee: PLAN: Status post revision of left total knee replacement day postop day 4. 1. Continue current pain medications: Tylenol and tramadol. Patient states today that her pain is well-controlled and that the pain medications have helped her successfully complete physical therapy. The importance of maintaining adequate pain control was discussed with patient today. Patient voiced understanding. 2. DVT: Patient will be taking aspirin 81 mg 2 times per day for 4 weeks postoperatively. Patient denies any history of DVT or pulmonary embolism. 3. Physical therapy: Patient will continue being weightbearing as tolerated with walker. Patient is to continue working with physical therapy wanted to TCU. 4. Probiotic prophylaxis: Patient will be on doxycycline for 2 weeks postoperatively. Microbiology was reviewed in chart today. Potential side effects of doxycycline were discussed with patient including increased risk of sunburn. 6. Encouraged Incentive Spirometry 7. Patient is aware of postoperative constipation that can occur from 1-3 days postoperatively. Will continue with senna 2 tablets twice daily until first bowel movement. Patient was advised if not having a bowel movement after day 3 she is to contact orthopedics so appropriate change can be made. Patient voiced understanding. Patient did have a bowel movement last night. 8. Continue postoperative medical treatment per medicine 9. Disposition: Case was discussed with case management and patient does have approval for the transitional care unit at [facility]. Patient must meet 3 midnight stay and is okay for discharge today. Patient will continue to focus and work on exercises with physical therapy. She will continue with the pain management plan above. Patient appears to be stable from orthopedic standpoint. Will use Zofran as needed for nausea. Patient's narcotic pain medication is on the chart. Patient will follow-up per postoperative instructions. Patient was encouraged to call with any questions, concerns, new problems. This dictation was created using voice recognition software. Phonetic and/or grammatical errors may exist.
--- NOTE | 2024-12-18 07:29 | TREXTCAR_ITS ---
Diet Diet Order/Speech Therapy: 12/15/24 08:55 Diet: Regular - General Routine Orders/Code Status Routine Lab Work: CBC (In 1 week.) Code Status: Full Code DC O2, CPAP, BIPAP needs Home O2 Discharge instructions: No Wound(s) lt knee: Wound Type: Surgical Incision Dressing Change: AntiMicrobial (Aquacel AG, etc) (Remove all dressings on 12/19/2024 okay to shower directly over incision with gentle soap and water.) Therapies Weight Bearing: Weight bearing as tolerated (With walker.) Extremity Affected:: Left Lower Physical Therapy: Eval and Treat Occupational Therapy: Eval and Treat Problem/Diagnosis (1) Status post revision of total replacement of left knee: Status: Acute Code(s): Z96.652 - Presence of left artificial knee joint Plan: Status post revision of left total knee replacement day postop day 4. 1. Continue current pain medications: Tylenol and tramadol. Patient states today that her pain is well-controlled and that the pain medications have helped her successfully complete physical therapy. The importance of maintaining adequate pain control was discussed with patient today. Patient voiced understanding. 2. DVT: Patient will be taking aspirin 81 mg 2 times per day for 4 weeks postoperatively. Patient denies any history of DVT or pulmonary embolism. 3. Physical therapy: Patient will continue being weightbearing as tolerated with walker. Patient is to continue working with physical therapy wanted to TCU. 4. Probiotic prophylaxis: Patient will be on doxycycline for 2 weeks postoperatively. Microbiology was reviewed in chart today. Potential side e ffects of doxycycline were discussed with patient including increased risk of sunburn. 6. Encouraged Incentive Spirometry 7. Patient is aware of postoperative constipation that can occur from 1-3 days postoperatively. Will continue with senna 2 tablets twice daily until first bowel movement. Patient was advised if not having a bowel movement after day 3 she is to contact orthopedics so appropriate change can be made. Patient voiced understanding. Patient did have a bowel movement last night. 8. Continue postoperative medical treatment per medicine 9. Disposition: Case was discussed with case management and patient does have approval for the transitional care unit at [facility]. Patient must meet 3 midnight stay and is okay for discharge today. Patient will continu e to focus and work on exercises with physical therapy. She will continue with the pain management plan above. Patient appears to be stable from orthopedic standpoint. Will use Zofran as needed for nausea. Patient's narcotic pain medication is on the chart. Patient will follow-up per postoperative instructions. Patient was encouraged to call with any questions, concerns, new problems. This dictation was created using voice recognition software. Phonetic and/or grammatical errors may exist. Allergies/Procedures Done in Hospital Allergies nabumetone Allergy (Severe, Verified 12/14/24 08:51) throat closing, Itching,hives to throat omeprazole Allergy (Unknown, Verified 12/14/24 08:51) Unknown Sulfa (Sulfonamide Antibiotics) Allergy (Unknown, Verified 12/14/24 08:51) Unknown diclofenac sodium (From [employer]) Allergy (Verified 12/14/24 08:51) Unknown hydrochlorothiazide (From Dyazide) Allergy (Verified 12/14/24 08:51) Hives misoprostol (From [employer]) Allergy (Verified 12/14/24 08:51) Unknown sulfabenzamide Allergy (Verified 12/14/24 08:51) Rash triamterene (From Dyazide) Allergy (Verified 12/14/24 08:51) Hives Type of Care/Length of Stay Estimated LOS: Convalescent Care Less Than 30 days Type of Care Needed: Skilled Rehab Potential: Good Prognosis: Good Additional Orders/Day of Discharge Day of Discharge: 12/18/24 Discharge Plan Admission Admit Date/Time: 12/15/24 15:10 Attending Provider: Alec Nance Primary Care Provider: Aneudy Joshi Consulting Providers: Gilmar Toussaint; Fritz Merino; Alcides Merritt Discharge Orders/Prescriptions Prescriptions: New acetaminophen 500 mg Tablet 1,000 mg PO TID 14 Days Qty: 84 0RF Rx Instructions: Do not exceed 3000 mg in 24 hours. aspirin 81 mg capsule 81 mg PO BIDCM 30 Days Qty: 0 0RF Rx Instructions: Take 4 weeks postoperatively for DVT prophylaxis. tramadol 50 mg Tablet 50 - 100 mg PO Q6H PRN PRN (Reason: as needed for pain) 7 Days Qty: 42 0RF doxycycline monohydrate 100 mg Capsule 100 mg PO BID 10 Days Qty: 0 0RF Rx Instructions: Take for 2 weeks postoperatively. ondansetron 4 mg Tablet,Disintegrating 8 mg PO Q8H PRN PRN (Reason: Nausea) 3 Days Qty: 0 0RF Rx Instructions: As needed for nausea and vomiting. Continued multivitamin capsule 1 cap PO DAILY carboxymethylcellulose sodium [Refresh Tears] 0.5 % drops 1 drp ophthalmic (eye) BID PRN (Reason: dry eye(s)) triamcinolone acetonide [Nasacort] 55 mcg aerosol,spray 2 spray intranasal DAILY PRN (Reason: nasal congestion) Rx Instructions: administer into each nostril cetirizine 10 MG tablet 10 mg PO QHS PRN (Reason: allergy symptoms) betamethasone dipropionate 15 GM cream 45 g TP PRN PRN (Reason: PSORIASIS) calcium carbonate-vitamin D3 1 EACH tablet,chewable 1 each PO DAILY mirabegron [Myrbetriq] 50 mg tablet extended release 24 hr 100 mg PO QHS famotidine 40 mg tablet 40 mg PO QHS cholecalciferol (vitamin D3) [Vitamin D3] 25 mcg (1,000 unit) capsule 25 mcg PO DAILY pantoprazole 40 mg tablet,delayed release (DR/EC) 40 mg PO DAILY Discontinued acetaminophen 500 MG tablet 500 mg PO Q6H PRN PRN (Reason: Pain 1-10 Or Fever) Referrals / Follow Up: Aneudy Joshi MD [Primary Care Provider] - Tiburcio Powell PA-C [Med Staff - [facility] Practice Prof] - 12/25/24 11:00 am Disposition Disposition (needs filled in before D/C Order can be placed): [facility] Facility
--- NOTE | 2024-12-18 07:41 | PCM.DC.SUM ---
Providers Date of Admission: 12/15/24 Date of Discharge: 12/18/24 Primary Care Physician: Dr. Aneudy Joshi MD Consultations 12/14/24 13:07 Consult: Hospitalist Routine Consulting Provider: Christine Madera Reason for Consult: post op med management EMERGENT Consult: No Notified: Yes Date Notified: 12/14/24 Time Notified: 16:03 Method of Notification: Text Reason For Visit: Robotic Assisted Knee Conversion from Unilateral A Diagnosis Discharge Diagnosis (1) Status post revision of total replacement of left knee: Status: Acute Code(s): Z96.652 - Presence of left artificial knee joint Plan: Status post revision of left total knee replacement day postop day 4. 1. Continue current pain medications: Tylenol and tramadol. Patient states today that her pain is well-controlled and that the pain medications have helped her successfully complete physical therapy. The importance of maintaining adequate pain control was discussed with patient today. Patient voiced understanding. 2. DVT: Patient will be taking aspirin 81 mg 2 times per day for 4 weeks postoperatively. Patient denies any history of DVT or pulmonary embolism. 3. Physical therapy: Patient will continue being weightbearing as tolerated with walker. Patient is to continue working with physical therapy wanted to TCU. 4. Probiotic prophylaxis: Patient will be on doxycycline for 2 weeks postoperatively. Microbiology was reviewed in chart today. Potential side effects of doxycycline were discussed with patient including increased risk of sunburn. 6. Encouraged Incentive Spirometry 7. Patient is aware of postoperative constipation that can occur from 1-3 days postoperatively. Will continue with senna 2 tablets twice daily until first bowel movement. Patient was advised if not having a bowel movement after day 3 she is to contact orthopedics so appropriate change can be made. Patient voiced understanding. Patient did have a bowel movement last night. 8. Continue postoperative medical treatment per medicine 9. Disposition: Case was discussed with case management and patient does have approval for the transitional care unit at [facility]. Patient must meet 3 midnight stay and is okay for discharge today. Patient will continue to focus and work on exercises with physical therapy. She will continue with the pain management plan above. Patient appears to be stable from orthopedic standpoint. Will use Zofran as needed for nausea. Patient's narcotic pain medication is on the chart. Patient will follow-up per postoperative instructions. Patient was encouraged to call with any questions, concerns, new problems. This dictation was created using voice recognition software. Phonetic and/or grammatical errors may exist. Medications at Discharge Home Medications multivitamin 1 cap PO DAILY 03/12/19 betamethasone dipropionate 0.05 % topical cream 45 g TP PRN PRN PSORIASIS 10/05/20 cetirizine 10 mg tablet 10 mg PO QHS PRN allergy symptoms 10/05/20 calcium 600 mg (as carbonate)-vit D3 10 mcg (400 unit) chewable tablet 1 each PO DAILY 01/27/21 carboxymethylcellulose sodium 0.5 % eye drops (Refresh Tears) 1 drp ophthalmic (eye) BID PRN dry eye(s) 06/21/23 triamcinolone acetonide 55 mcg nasal spray aerosol (Nasacort) 2 spray intranasal DAILY PRN nasal congestion 06/21/23 cholecalciferol (vitamin D3) 25 mcg (1,000 unit) capsule (Vitamin D3) 25 mcg PO DAILY 11/23/24 famotidine 40 mg tablet 40 mg PO QHS 11/23/24 mirabegron 50 mg tablet,extended release 24 hr (Myrbetriq) 100 mg PO QHS 11/23/24 pantoprazole 40 mg tablet,delayed release 40 mg PO DAILY 11/23/24 acetaminophen 500 mg tablet 1,000 mg (2 x 500 mg) PO TID 14 days #84 tabs 12/18/24 aspirin 81 mg capsule 81 mg PO BIDCM 30 days #0 caps 12/18/24 doxycycline monohydrate 100 mg capsule 100 mg PO BID 10 days #0 caps 12/18/24 ondansetron 4 mg disintegrating tablet 8 mg (2 x 4 mg) PO Q8H PRN PRN Nausea 3 days #0 tabs 12/18/24 tramadol 50 mg tablet 50 - 100 mg (1 - 2 x 50 mg) PO Q6H PRN PRN as needed for pain 7 days #42 tabs 12/18/24 Hospital Course Summary of Care Provided Hospital Course: Patient is an 84-year-old female who is a patient of Dr. Cardona. Patient had a previous left unicompartmental knee replacement by Dr. Foster in 2011. Patient had tried conservative measures with no help. Patient was using a walker and a cane for ambulatory assistance. Based on imaging studies she had progression of osteoarthritis of the left knee. Patient has history of prediabetes, gastroesophageal reflux disease, sleep apnea, osteoporosis. Patient denies history of previous DVT or pulmonary embolism. Patient wished to proceed with a left knee conversion from unilateral arthroplasty to total knee arthroplasty. Patient underwent this revision on 12/14/2024. The plan following surgery was for patient to be an observation patient and her to return home with her son following surgery. During the hospital stay patient did not feel safe to return home as someone would not do there with her at all times and patient has needed more assistance than she thought. During hospital stay patient also struggled with some intermittent nausea that she believes is now under control. Due to safety concerns with going home patient will be discharged to transitional care unit on postoperative day 4 12/18/24. Patient will be discharged to the transitional care unit with pain medications including Tylenol 1000 mg every 8 hours taking no more than 3000 mg in 24 hours, as well as as needed tramadol. DVT prophylaxis: Patient will be discharged on aspirin 81 mg 2 times per day for 4 weeks postoperatively. Patient was also instructed to wear ARIELLE hose for 2 weeks postoperatively for blood clot prevention. Patient denies history of DVT, PE. Due to patient's intermittent nausea patient will be discharged on as needed Zofran for as needed nausea and vomiting. Patient will be on doxycycline for 2 weeks postoperatively. Narcotic prescription has been placed on the chart. OARRS report was ran and reviewed by myself today. Patient is to follow-up per postoperative instructions. Weight / BMI Weight Weight: 70.7 kg Body Mass Index (BMI) 29.4 ABG / Lab / Microbiology Data 12/16/24 04:44 12/15/24 06:22 Microbiology: Microbiology 12/14/24 Unknown Tissue - Knee Gram Stain - Final 12/14/24 Unknown Tissue - Knee Wound Culture - Preliminary No growth-Final to follow 12/14/24 Unknown Tissue - Knee Anaerobic Culture - Preliminary No growth in 48 hours. 12/14/24 Unknown Tissue - Knee Gram Stain - Final 12/14/24 Unknown Tissue - Knee Wound Culture - Preliminary No growth-Final to follow 12/14/24 Unknown Tissue - Knee Anaerobic Culture - Preliminary No growth in 48 hours. 12/14/24 Unknown Tissue - Knee Gram Stain - Final 12/14/24 Unknown Tissue - Knee Wound Culture - Preliminary No growth-Final to follow 12/14/24 Unknown Tissue - Knee Anaerobic Culture - Preliminary No growth in 48 hours. 11/25/24 13:58 Swab (Method) Nasal Screen MRSA/MSSA - Final Radiography Diagnostic Testing: Radiology Impression Venous Doppler Study 12/16/24 11:04 Interpretation Summary Deep veins of the bilateral lower extremities are patent and compressible segmentally. There is no evidence of bilateral lower extremity deep vein thrombosis. The bilateral great saphenous veins appear patent and compressible segmentally. Ordering Physician: Mirta Sharp Referring Physician: Aneudy Joshi Performed By: Nicole Maxwell RVT and Student D/C Instructions DC O2, CPAP, BIPAP Needs Home O2 Discharge instructions: No Meaningful Use Info Meaningful Use Meaningful Use Diagnoses (Choose all that apply): None applicable Ischemic Stroke Statin Dosing Therapy Reference: STATIN DOSE THERAPY REFERENCE: * Patients > 75 years receive moderate or high dose statin therapy. * Patients 75 years or YOUNGER should receive HIGH intensity statin dose unless contraindicated. You will be required to document reason for non-treatment if statin daily dose does not meet guidelines. HIGH DOSE STATIN THERAPY DAILY Atorvastatin > than or = to 40 mg Rosuvastatin > than or = to 20 mg Amlodipine + Atorvastatin > than or = to 2.5/40 mg Ezetimibe + Simvastatin 10/80 mg Simvastatin 80mg Discharge Plan Admission Admit Date/Time: 12/15/24 15:10 Attending Provider: Alec Nance Primary Care Provider: Aneudy Joshi Consulting Providers: Gilmar Toussaint; Fritz Merino; Alcides Merritt Discharge Orders/Prescriptions Prescriptions: New acetaminophen 500 mg Tablet 1,000 mg PO TID 14 Days Qty: 84 0RF Rx Instructions: Do not exceed 3000 mg in 24 hours. aspirin 81 mg capsule 81 mg PO BIDCM 30 Days Qty: 0 0RF Rx Instructions: Take 4 weeks postoperatively for DVT prophylaxis. tramadol 50 mg Tablet 50 - 100 mg PO Q6H PRN PRN (Reason: as needed for pain) 7 Days Qty: 42 0RF doxycycline monohydrate 100 mg Capsule 100 mg PO BID 10 Days Qty: 0 0RF Rx Instructions: Take for 2 weeks postoperatively. ondansetron 4 mg Tablet,Disintegrating 8 mg PO Q8H PRN PRN (Reason: Nausea) 3 Days Qty: 0 0RF Rx Instructions: As needed for nausea and vomiting. Continued multivitamin capsule 1 cap PO DAILY carboxymethylcellulose sodium [Refresh Tears] 0.5 % drops 1 drp ophthalmic (eye) BID PRN (Reason: dry eye(s)) triamcinolone acetonide [Nasacort] 55 mcg aerosol,spray 2 spray intranasal DAILY PRN (Reason: nasal congestion) Rx Instructions: administer into each nostril cetirizine 10 MG tablet 10 mg PO QHS PRN (Reason: allergy symptoms) betamethasone dipropionate 15 GM cream 45 g TP PRN PRN (Reason: PSORIASIS) calcium carbonate-vitamin D3 1 EACH tablet,chewable 1 each PO DAILY mirabegron [Myrbetriq] 50 mg tablet extended release 24 hr 100 mg PO QHS famotidine 40 mg tablet 40 mg PO QHS cholecalciferol (vitamin D3) [Vitamin D3] 25 mcg (1,000 unit) capsule 25 mcg PO DAILY pantoprazole 40 mg tablet,delayed release (DR/EC) 40 mg PO DAILY Discontinued acetaminophen 500 MG tablet 500 mg PO Q6H PRN PRN (Reason: Pain 1-10 Or Fever) Referrals / Follow Up: Aneudy Joshi MD [Primary Care Provider] - Tiburcio Powell PA-C [Med Staff - [facility]] - 12/25/24 11:00 am Disposition Disposition (needs filled in before D/C Order can be placed): [facility]
[2024-12-18 08:46] VITALS: BP 136/63; PULSE 82; RESP 16; TEMP 36.6; O2SAT 97
[2024-12-18] MEDS: Multivitamins,Therapeutic Tablet 1 TABLET PO (08:55)
[2024-12-18] MEDS: Aspirin 81 MG TAB.CHEW PO (08:55)
[2024-12-18] MEDS: Doxycycline 100 MG CAPSULE PO (09:00)
[2024-12-18] MEDS: Chlorthalidone 50 MG Tablet 12.5 MG PO (09:00)
[2024-12-18] MEDS: Pantoprazole Sodium 40 MG Tablet PO (09:01)
[2024-12-18] MEDS: Senna/Docusate Sodium 1 Tablet 2 TABLET PO (09:07)
[2024-12-18] MEDS: Ensure Surgery 237 ML LIQUID PO (09:08)
[2024-12-18] MEDS: Cholecalciferol (VIT D3) 25 MCG TABLET (1,000 UNITS) PO (09:08)
--- NOTE | 2024-12-18 09:22 | CASEMGMT ---
Patient is ready for discharge to TCU today. SW spoke with patient and her family member. Both were aware of the transfer today. Both were in agreement. Plan: d/c to [facility] TCU under skilled level of care. Kelly WAHL
== END 2024-12-18 10:56 | disposition skilled nursing facility (03) | DRG 467 ==
LOC: SDC 15:34 → MS3 15:34
PROVIDERS: Anesthesiology; Physician Assistant Surgical; Admitting Provider Specialist; PCP Family Medicine; Referring Provider Specialist; Visit Provider Specialist
PROC: 0SRD0JZ Replacement of Left Knee Joint with Synthetic Substitute, Open Approach (ICD-10-PCS; CPT 27447; principal; 2024-12-14 09:45)
DX: M17.12 Unilateral primary osteoarthritis, left knee (principal); D62 Acute posthemorrhagic anemia; T84.093A Other mechanical complication of internal left knee prosthesis, initial encounter; E11.40 Type 2 diabetes mellitus with diabetic neuropathy, unspecified; L40.9 Psoriasis, unspecified; G47.30 Sleep apnea, unspecified; K21.9 Gastro-esophageal reflux disease without esophagitis; J30.9 Allergic rhinitis, unspecified; R01.1 Cardiac murmur, unspecified; H91.90 Unspecified hearing loss, unspecified ear; Z96.653 Presence of artificial knee joint, bilateral; M81.0 Age-related osteoporosis without current pathological fracture; R09.02 Hypoxemia; Z90.710 Acquired absence of both cervix and uterus
CPT/HCPCS: 36415; 73560; 80048; 82040; 82962; 83735; 85025; 85027; 87015; 87070; 87075; 87081; 87102; 87116; 87205; 87206; 88305; 88311; 93970; 94668; 97110; 97116; 97162; 97166; 97530; 97535; 99252; C1776; A4216; G0463; J2405; J3475

== ENCOUNTER 2024-12-18 11:01 | Inpatient (IN) | payer MEDICARE, OTHER, SELFPAY ==
[2024-12-18 11:23] VITALS: BP 121/67; PULSE 73; RESP 15; RESP 16; TEMP 36.8; O2SAT 97; BMI 28.0
--- NOTE | 2024-12-18 13:11 | NURSING ---
Metrology Engineer Note; Activity Asset: Carlitos Olivares is independent in her choice of daily activities. She has her smartphone that she will play cards and other games on along w/talking to family on. Her family/friends will visits daily and bring her items she may need or want. Elise welcomes visits from the all round logger and therapy dog when available. She enjoys puzzles and was informed of the large sitting room where she can sit and work on puzzles or take small ones to her room. Staff will encourage social activities, remind her of weekly activities and respect her right to say no.
[2024-12-18] MEDS: Acetaminophen 500 MG Tablet 1000 MG PO ×2 (13:21→20:43)
--- NOTE | 2024-12-18 14:43 | HP.PCM_ITS ---
HPI - General General Date of Admission: 12/18/24 Date of Service: 12/18/24 Chief Complaint: Here for rehabilitation. HPI Narrative PHYLLIS STINSON, is a 84 Female who presents with followin12/14/2024 Admit [facility]. 12/14/2024 Dr. Nance performed conversion of previous medial compartment left partial knee replacement to robotic assisted left total knee replacement. 12/15/2024 Sitting in bed, pain controlled. Overnight nausea, requested scopolamine patch. Unable to do PT yesterday. Drainage over distal incision. Tylenol, oxycodone for pain control. Aspirin 81mg twice daily x 4 weeks DVT prophylaxis. WBAT, PT/OT. Doxycycline x 2 weeks postoperatively. Postoperative hypoxia resolved. 12/16/2024 Uncomfortable in bed. PT yesterday, unable today. Unable to go home. Senna for constipation. PT/OT, WBAT, consider SNF. senna, miralax for bowels. 12/17/2024 No acute events overnight. Approved for TCU. Tylenol, Tramadol for pain. 12/18/2024 Admit to TCU with debility, here for rehabilitation, strengthening, prior to discharge home alone. FORMERLY [facility], [facility] Medical History (Updated 12/18/24 @ 14:[address] Mario Saldaña MD) Post-menopausal Psoriasis Walker as ambulation aid Bladder disease Leal's cyst of knee History of hiatal hernia History of pain when walking Abrasion of left ear canal Wears hearing aid Wears glasses Wears dentures MRSA infection Arthritis Non-smoker Leg cramps History of edema History of echocardiogram History of stress test Hair loss Osteoporosis GERD (gastroesophageal reflux disease) Home Medications ?Medication ?Instructions ?Recorded ?Last Taken ?Type multivitamin 1 cap PO DAILY supplement 12/17/24 History betamethasone dipropionate 0.05 % 45 g TP PRN PRN PSOR IASIS 10/05/20 Unknown History topical cream cetirizine 10 mg tablet 10 mg PO QHS PRN allergy sym ptoms 10/05/20 12/17/24 History calcium 600 mg (as carbonate)-vit 1 each PO DAILY supp lement 01/27/21 12/17/24 History D3 10 mcg (400 unit) chewable tablet carboxymethylcellulose sodium 0.5 1 drp ophthalmic (ey e) BID PRN dry 06/21/23 Unknown History % eye drops (Refresh Tears) eye(s) triamcinolone acetonide 55 mcg 2 spray intranasal IMANI Y PRN nasal 06/21/23 Unknown History nasal spray aerosol (Nasacort) congestion cholecalciferol (vitamin D3) 25 25 mcg PO DAILY supple ment 11/23/24 12/17/24 History mcg (1,000 unit) capsule (Vitamin D3) famotidine 40 mg tablet 40 mg PO QHS stomach 5 12/17/24 History mirabegron 50 mg tablet,extended 100 mg PO QHS bladder 11/23/24 12/17/24 History release 24 hr (Myrbetriq) pantoprazole 40 mg tablet,delayed 40 mg PO DAILY stoma ch 11/23/24 12/17/24 History release acetaminophen 500 mg tablet 1,000 mg (2 x 500 mg) PO T ID pain 12/18/24 12/18/24 Rx 14 days #84 tabs aspirin 81 mg capsule 81 mg PO BIDCM heart 30 days #0 12/18/24 12/17/24 Rx caps doxycycline monohydrate 100 mg 100 mg PO BID antibioti c 10 days 12/18/24 12/17/24 Rx capsule #0 caps ondansetron 4 mg disintegrating 8 mg (2 x 4 mg) PO Q8H PRN PRN 12/18/24 12/17/24 Rx tablet Nausea 3 days #0 tabs tramadol 50 mg tablet 50 - 100 mg (1 - 2 x 50 mg) PO Q6H 12/18/24 12/17/24 Rx PRN PRN as needed for pain 7 days #42 tabs Allergy/AdvReac Type Severity Reaction Status Date / Time nabumetone Allergy Severe throat Verified 12/14/24 08:51 closing, Itching,hives to throat omeprazole Allergy Unknown Unknown Verified 12/14/24 08:51 Sulfa (Sulfonamide Allergy Unknown Unknown Verified 12/14/24 08:51 Antibiotics) diclofenac sodium (From Allergy Unknown Verified 12/14/24 08:51 Arthrotec) hydrochlorothiazide (From Allergy Hives Verified 12/14/24 08:51 Dyazide) misoprostol (From Arthrotec) Allergy Unknown Verified 12/14/24 08:51 sulfabenzamide Allergy Rash Verified 12/14/24 08:51 triamterene (From Dyazide) Allergy Hives Verified 12/14/24 08:51 Family History Father Cancer Dementia Stomach ulcer Mother CVA (cerebral vascular accident) Dementia Sister Breast cancer Surgical History Hx of colonoscopy History of esophagogastroduodenoscopy (EGD) Hx of left cataract extraction Hx of bladder repair surgery History of carpal tunnel surgery of left wrist History of total knee replacement cataract surgery eye lid surgery H/O left knee surgery History of cholecystectomy r shoulder surgery H/O carpal tunnel repair H/O: hysterectomy Hx of appendectomy Social History (Updated 12/18/24 @ 15:[address] Mario Saldaña MD) household members: children and other details: Son lives with her. Smoking Status: Never smoker alcohol intake: current alcohol intake frequency: holidays/special occasions only substance use type: does not use what type of physical activity do you participate in: walking seatbelt use: always do you feel safe at home: Yes ROS Constitutional Constitutional: Reports weakness; Denies chills, fever(s) or weight gain ENT HEENT: Denies headache(s), nasal congestion or nasal discharge Cardiovascular Cardiovascular: Denies chest pain or palpitations Respiratory/Chest Respiratory/Chest: Denies cough, excessive phlegm production or shortness of breath with exertion Gastrointestinal Gastrointestinal: Denies abdominal pain, nausea or vomiting Genitourinary Genitourinary: Denies dysuria Musculoskeletal Musculoskeletal: Denies joint pain or joint swelling Integumentary Integumentary: Denies rash or wounds Neurologic Neurologic: Denies focal weakness, numbness or tingling Psychiatric Psychiatric: Denies anxiety, auditory hallucinations, depression, homicidal ideation or suicidal ideation Vital Signs Vital Signs Vital Signs: 12/18/24 11:23 12/18/24 11:23 Temperature 98.3 F Temperature Source Temporal Pulse Rate 73 73 Pulse Rhythm Regular Pulse Strength Normal (2+) Respiratory Rate 15 16 Respiratory Effort Normal Non-Labored Respiratory Depth Normal Respiratory Pattern Normal Blood Pressure 121/67 H Blood Pressure Mean 85 Blood Pressure Source Monitor Blood Pressure Position Semi-Fowlers Blood Pressure Location Right Arm Pulse Ox 97 97 Oxygen Delivery Method Room Air Room Air Weight Weight: 67.313 kg Body Mass Index (BMI) 28.0 Assessment & Plan Assessment/Plan (1) Debility: (2) Osteoarthritis of left knee: (3) Status post revision of total replacement of left knee: (4) GERD (gastroesophageal reflux disease): (5) Sleep apnea: (6) Osteoporosis: (7) Hearing loss: PLAN: Plan 84 year old female with below past medical history underwent conversion of previous medial compartment left partial knee replacement to robotic assisted left total knee replacement 12/14/[address] Nance, postoperative course complicated by hypoxia, admitted to TCU with debility, here for rehabilitation, strengthening, prior to discharge home alone. * Debility - PT/OT. * Pain - Tylenol 1000mg tid, Tramadol 50mg to 100mg q6 prn. * Bowel - senna/colace 2 tablets bid, Magnesium citrate 300mL daily prn. * Adult immunization - Administer pneumonia vaccine, covid vaccine, flu vaccine as appropriate. * DVT prophylaxis - Aspirin 81mg bidcm thru 01/17/2025. * Calcium deficiency - Calcium D 1 tablet daily. * Vitamin D deficiency - D3 25mcg daily. * ID - Doxycycline 100mg bid thru 01/01/2025. * GERD (severe) - Pantoprazole 40mg daily, Famotidine 40mg qhs. * Allergic rhinitis - Fluticasone 0.05% 2 sprays nasal daily prn, Loratadine 10mg qhs prn. * Nutrition - MVI 1 tablet daily. * Nausea - Zofran 8mg q8 prn. * Dry eyes - Artificial tears 1gtt ou bid prn. * Rash - Triamcinolone 0.5 topical daily prn. * Overactive bladder - Gemtesa 75mg qhs.
--- NOTE | 2024-12-18 15:21 | CASEMGMT ---
Social Work SW met with patient to complete initial assessment. Introduced self and role. Son at bedside and pt granted permission to remain for assessment. Verified/updated contacts. Confirmed code status as full code. Pt did make the comment she initially elected DNR-CCA, but spoke with dtr and dtr wasn't happy with that decision and pt changed back to full code. SW advocated for pt choosing the decision she wants, and not family. Pt maintained full code. SW requested family provide copies of advanced directives. SW educated to Medicare benefit and copay coverage. Pt's goal is to return home with son's assistance. Pt inquired about MOW. SW to provide resources. Will continue to follow for DC planning. Leah Simeon BIOPROCESS ENGINEER [employer] ASSEMBLER AND GLUER
[2024-12-18] MEDS: Aspirin 81 MG TAB.CHEW PO (17:03)
[2024-12-18] MEDS: Famotidine 20 MG Tablet 40 MG PO (17:04)
--- NOTE | 2024-12-18 17:39 | NURSING ---
pt requesting to take protonix and pepcid before meals per her home regimen by Dr Fuller. times changed on JAN
--- NOTE | 2024-12-18 18:35 | NURSING ---
court attendant's reporting that pt LT knee hyperextends when ambulating, message left for therapy to assess during evaluation tomorrow morning. pt noted with slight confusion this evening with supper, pt asked this nurse if her pepcid was given. explained to pt that I had given it with her 5pm med per her request of her home regimen. pt then stated oh, yes I remember
[2024-12-18] MEDS: Vibegron 75 MG TABLET PO (20:36)
[2024-12-18] MEDS: Senna/Docusate Sodium 1 Tablet 2 TABLET PO (20:37)
[2024-12-18] MEDS: Doxycycline 100 MG CAPSULE PO (20:38)
[2024-12-19 02:30] VITALS: PULSE 67; RESP 18; O2SAT 96
[2024-12-19] MEDS: Acetaminophen 500 MG Tablet 1000 MG PO ×3 (05:08→21:00)
[2024-12-19] MEDS: Pantoprazole Sodium 40 MG Tablet PO (05:09)
[2024-12-19 06:44] LABS: Absolute Lymphocyte Count 0.81 X10^3/uL (0.83-4.51); Absolute Neutrophil Count 3.7 X10^3/uL (2.0-7.7); Basophil# 0.02 X10^3/uL; Basophil% 0.4 % (0-1); Eosinophil# 0.02 X10^3/uL; Eosinophils% 0.4 % (0-5); Hematocrit 28.3 % (37-47); Lymphocyte # 0.81 X10^3/ul (0.83-4.51); Lymphocyte % 14.7 % (19-41); Mean Corp Hgb Conc 35.3 g/dL (32-36); Mean Corpuscular Hgb 30.2 pg (27.0-32.0); Mean Corpuscular Volume 85.5 fL (81-99); Mean Platelet Vol. 9.1 fl (6.2-12.0); Monocyte# 0.89 X10^3/uL; Monocyte% 16.2 % (0-10); NRBC Flagged by Analyzer 0 % (0-5); Neutrophil # 3.72 X10^3/uL (2.7-7.7); Neutrophil % 67.4 % (47-70); Platelet Count 313 K/mm3 (150-450); RBC Distribution Width CV 12.2 % (11.6-14.6); RBC Distribution Width SD 38.2 fl (35.1-43.9); Red Blood Count 3.31 M/mm3 (4.2-5.4); White Blood Count 5.5 K/mm3 (4.4-11.0)
[2024-12-19 07:22] LABS: Anion Gap 9 (5-15); BUN 11 mg/dL (7-18); BUN/Creat Ratio 17.8 RATIO (10-20); Calcium,Total 8.5 mg/dL (8.5-10.1); Chloride 90 mmol/L (98-107); Creatinine, Serum 0.62 mg/dL (0.55-1.02); EST Glomerular Filtration Rate 98 mL/min (>60); Est Glom Filt Rate - Afr Amer 119 mL/min (>60); Estimated Creatinine Clearance 46.77 ml/min; Glucose 107 mg/dL (74-106); Potassium 3.3 mmol/L (3.5-5.1); Sodium Level 125 mmol/L (136-145)
--- NOTE | 2024-12-19 07:48 | NURSING ---
Pt Sodium 125 this AM pt was confused last night and was self transferring and seeing people in room that are not there. Dr. Saldaña updated N.O. received for Serum osmolality, Urine Osmolality, and Urine Sodium. Orders Read back.
[2024-12-19 08:04] LABS: Osmolality, Serum 255 mOsm/KG (280-301)
[2024-12-19] MEDS: Senna/Docusate Sodium 1 Tablet 2 TABLET PO ×2 (08:05→20:59)
[2024-12-19] MEDS: Calcium Carb/Vitamin D 1 TABLET Tablet PO (08:05)
[2024-12-19] MEDS: Doxycycline 100 MG CAPSULE PO ×2 (08:06→20:59)
[2024-12-19] MEDS: Aspirin 81 MG TAB.CHEW PO ×2 (08:06→17:27)
[2024-12-19] MEDS: Multivitamins,Therapeutic Tablet 1 TABLET PO (08:06)
[2024-12-19] MEDS: Cholecalciferol (VIT D3) 25 MCG TABLET (1,000 UNITS) PO (08:06)
[2024-12-19 10:16] LABS: Urine Sodium 11 mmol/L (Not Establ.)
[2024-12-19 11:10] LABS: Osmolality, Urine 446 mOsm/KG
[2024-12-19] MEDS: Potassium Chloride Oral Tablet 20 MEQ 40 MEQ PO (11:13)
[2024-12-19] MEDS: Tuberculin,Purif.prot.deriv. 50 TU/ML Vial 0.1 ML ID (11:14)
--- NOTE | 2024-12-19 12:24 | NURSING ---
Pt Bladder scanned for >800ml taken to bathroom voided 100 and pt rescanned for greater than 855. Pt Straight cathed per order and drained 950ml of clear yellow urine. Will continue to monitor.
[2024-12-19 14:26] VITALS: BP 114/56; PULSE 79; RESP 16; TEMP 36.4; O2SAT 99
[2024-12-19] MEDS: Famotidine 20 MG Tablet 40 MG PO (17:27)
[2024-12-19] MEDS: Menthol/Lanolin/Calamine/Znox 113 GM Tube 1 APPLIC TOPICAL (21:00)
[2024-12-19] MEDS: Vibegron 75 MG TABLET PO (21:01)
--- NOTE | 2024-12-20 03:13 | NURSING ---
Patient continues to be impulsive and restless; pressure alarm in place and functioning and education garbage person light usage reinforced frequently throughout the shift. C/o visual hallucinations, she is very redirectable and understands that hallucinations are not real. Seizure precautions added d/t low sodium. Repeat BMP scheduled for later this morning.
--- NOTE | 2024-12-20 03:16 | NURSING ---
Bladder scanned for 739cc. Patient was able to void 50cc. This nurse explained to patient that she is retaining urine and would need to have a Galo placed per policy. Patient adamantly refusing placement of Galo, stating she has had one in place before and she cannot stand it. She is willing to be straight cathed in order to have her bladder emptied to avoid complications of urinary retention. Straight cath performed; 700 cc of clear straw colored urine resulted. Patient tolerated well and states feeling a relief of pressure.
[2024-12-20] MEDS: Acetaminophen 500 MG Tablet 1000 MG PO ×3 (06:00→21:14)
[2024-12-20] MEDS: Pantoprazole Sodium 40 MG Tablet PO (06:00)
[2024-12-20 06:27] LABS: Anion Gap 6 (5-15); BUN 14 mg/dL (7-18); BUN/Creat Ratio 24.2 RATIO (10-20); Calcium,Total 8.4 mg/dL (8.5-10.1); Chloride 96 mmol/L (98-107); Creatinine, Serum 0.58 mg/dL (0.55-1.02); EST Glomerular Filtration Rate 106 mL/min (>60); Est Glom Filt Rate - Afr Amer 128 mL/min (>60); Estimated Creatinine Clearance 46.77 ml/min; Glucose 93 mg/dL (74-106); Potassium 3.6 mmol/L (3.5-5.1); Sodium Level 130 mmol/L (136-145)
[2024-12-20 09:45] VITALS: BP 146/73; PULSE 88; RESP 16; TEMP 36.9; O2SAT 97
[2024-12-20] MEDS: Potassium Chloride Oral Tablet 20 MEQ PO (09:49)
[2024-12-20] MEDS: Aspirin 81 MG TAB.CHEW PO ×2 (09:49→18:14)
[2024-12-20] MEDS: Menthol/Lanolin/Calamine/Znox 113 GM Tube 1 APPLIC TOPICAL ×2 (09:50→21:12)
[2024-12-20] MEDS: Multivitamins,Therapeutic Tablet 1 TABLET PO (09:50)
[2024-12-20] MEDS: Cholecalciferol (VIT D3) 25 MCG TABLET (1,000 UNITS) PO (09:50)
[2024-12-20] MEDS: Calcium Carb/Vitamin D 1 TABLET Tablet PO (09:50)
[2024-12-20] MEDS: Senna/Docusate Sodium 1 Tablet 2 TABLET PO ×2 (09:51→21:13)
[2024-12-20] MEDS: Doxycycline 100 MG CAPSULE PO ×2 (09:51→21:14)
--- NOTE | 2024-12-20 10:21 | NURSING ---
Addendum entered by Nicole Ngo 12/20/24 17:28: Bladder scanned for 196. No interventions at this time. Will continue to monitor. Original Note: Patient unable to urinate. Bladder scanned for >367. Discussed placing a Galo Catheter. Patient declines. Patient agreeable to straight cath. Tasked completed. 360mL emptied from bladder. Patient tolerated task well. No further needs at this time. Call light within reach.
[2024-12-20] MEDS: Magnesium Citrate 300 ML PO (17:26)
[2024-12-20] MEDS: Famotidine 20 MG Tablet 40 MG PO (18:13)
[2024-12-21] MEDS: Pantoprazole Sodium 40 MG Tablet PO (05:43)
[2024-12-21] MEDS: Acetaminophen 500 MG Tablet 1000 MG PO ×3 (05:43→21:04)
[2024-12-21 06:11] LABS: Anion Gap 6 (5-15); BUN 19 mg/dL (7-18); Calcium,Total 8.6 mg/dL (8.5-10.1); Chloride 98 mmol/L (98-107); Creatinine, Serum 0.68 mg/dL (0.55-1.02); EST Glomerular Filtration Rate 88 mL/min (>60); Est Glom Filt Rate - Afr Amer 107 mL/min (>60); Estimated Creatinine Clearance 46.77 ml/min; Glucose 97 mg/dL (74-106); Potassium 4.7 mmol/L (3.5-5.1); Sodium Level 134 mmol/L (136-145)
[2024-12-21] MEDS: Cholecalciferol (VIT D3) 25 MCG TABLET (1,000 UNITS) PO (08:42)
[2024-12-21] MEDS: Aspirin 81 MG TAB.CHEW PO ×2 (08:42→16:59)
[2024-12-21] MEDS: Senna/Docusate Sodium 1 Tablet 2 TABLET PO ×2 (08:42→21:04)
[2024-12-21] MEDS: Multivitamins,Therapeutic Tablet 1 TABLET PO (08:43)
[2024-12-21] MEDS: Doxycycline 100 MG CAPSULE PO ×2 (08:43→21:05)
[2024-12-21] MEDS: Potassium Chloride Oral Tablet 20 MEQ PO (08:43)
[2024-12-21] MEDS: Calcium Carb/Vitamin D 1 TABLET Tablet PO (08:43)
[2024-12-21] MEDS: Menthol/Lanolin/Calamine/Znox 113 GM Tube 1 APPLIC TOPICAL ×2 (08:43→22:23)
--- NOTE | 2024-12-21 08:59 | NURSING ---
Offered covid vaccine, VIS provided. Resident declines at this time.
[2024-12-21 15:34] VITALS: BP 131/73; PULSE 94; RESP 14; TEMP 36.9; O2SAT 98
--- NOTE | 2024-12-21 15:39 | PCM.PN.DRR ---
Documented by User: Sharee Colunga 12/21/24 15:51 TCU RX Drug Regimen Review Subjective/Objective Subjective/Objective Subjective: TCU Admission. 84 YOF presented to [facility] for conversion of previous medial compartment left partial knee replacement to robotic assisted left total knee replacement 12/14/[address] Nance, postoperative course complicated by hypoxia. Admitted to TCU with debility for strengthening and rehabilitation. Objective: Allergies nabumetone Allergy (Severe, Verified 12/14/24 08:51) throat closing, Itching,hives to throat omeprazole Allergy (Unknown, Verified 12/14/24 08:51) Unknown Sulfa (Sulfonamide Antibiotics) Allergy (Unknown, Verified 12/14/24 08:51) Unknown diclofenac sodium (From Arthrotec) Allergy (Verified 12/14/24 08:51) Unknown hydrochlorothiazide (From Dyazide) Allergy (Verified 12/14/24 08:51) Hives misoprostol (From Arthrotec) Allergy (Verified 12/14/24 08:51) Unknown sulfabenzamide Allergy (Verified 12/14/24 08:51) Rash triamterene (From Dyazide) Allergy (Verified 12/14/24 08:51) Hives Current Medications Generic Name Dose Route Start Last Admin Trade Name Freq PRN Reason Stop Dose Admin Acetaminophen 1,000 mg 12/18/24 14:00 12/21/24 15:03 Acetaminophen 500 Mg Tablet PO 1,000 mg TID DANA Administration Aspirin 81 mg 12/18/24 17:00 12/21/24 08:42 Aspirin 81 Mg Tab.Chew PO 01/17/25 17:01 81 mg BIDCM [facility] Administration Calamine/Phenol 1 applic 12/19/24 22:00 12/21/24 08:43 Menthol/Lanolin/Calamine/Znox 113 Gm Tube TOPICAL 1 applic BID [facility] Administration Protocol Calcium/Vitamin D 1 tablet 12/19/24 08:00 12/21/24 08:43 Calcium Carb/Vitamin D 1 Tablet Tablet PO 1 tablet DAILYCM [facility] Administration Cholecalciferol 25 mcg 12/19/24 08:00 12/21/24 08:42 Cholecalciferol (Vit D3) 25 Mcg Tablet (1,000 Units) PO 25 mcg DAILYCM [facility] Administration Doxycycline Monohydrate 100 mg 12/18/24 22:00 12/21/24 08:43 Doxycycline 100 Mg Capsule PO 01/01/25 22:01 100 mg BID DANA Administration Famotidine 40 mg 12/19/24 17:00 12/20/24 18:13 Famotidine 20 Mg Tablet PO 40 mg 1700 DANA Administration Fluticasone Propionate 2 spray 12/18/24 13:02 Fluticasone 0.05% 1 [place] Nasal.Sry NASAL DAILY PRN nasal congestion Glycerin/Hypromellose/Polyethylene 1 drp 12/18/24 11:58 Glycerin/Hypromellose/[id number] 15 Ml Bottle OPHTHALMIC BID PRN dry eye(s) Loratadine 10 mg 12/18/24 11:14 Loratadine 10 Mg Tablet PO QHS PRN allergy symptoms Magnesium Citrate 300 ml 12/18/24 15:01 12/20/24 17:26 Magnesium Citrate 300 Ml PO 300 ml DAILY PRN Administration Constipation Multivitamins 1 tablet 12/19/24 08:00 12/21/24 08:43 Multivitamins,Therapeutic Tablet PO 1 tablet BREAKFAST DANA Administration Ondansetron HCl 8 mg 12/18/24 11:14 Ondansetron Odt 4 Mg Tablet PO Q8H PRN PRN Nausea Pantoprazole Sodium 40 mg 12/19/24 06:30 12/21/24 05:43 Pantoprazole Sodium 40 Mg Tablet PO 40 mg 0630 DANA Administration Potassium Chloride 20 meq 12/20/24 08:00 12/21/24 08:43 Potassium Chloride Oral Tablet 20 Meq PO 20 meq DAILYCM DANA Administration Senna/Docusate Sodium 2 tablet 12/18/24 22:00 12/21/24 08:42 Senna/Docusate Sodium 1 Tablet PO 2 tablet BID DANA Administration Tramadol HCl 50 - 100 mg 12/18/24 11:14 Tramadol 50 Mg Tablet PO Q6H PRN PRN as needed for pain Triamcinolone Acetonide 1 applic 12/18/24 13:24 Triamcinolone 0.5% Cream TOPICAL DAILY PRN PSORIASIS AREAS Tuberculin PPD 0.1 ml 12/26/24 10:00 Tuberculin,Purif.Prot.Deriv. 50 Tu/Ml Vial ID 12/26/24 10:01 X1 ONE Problem List (Updated 12/18/24 @ 14:[address] 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) GERD (gastroesophageal reflux disease) (Chronic) Vital Signs Temp Pulse Resp BP Pulse Ox O2 Del Method 98.4 F 94 14 131/73 H 98 Room Air 12/21/24 15:34 12/21/24 15:34 12/21/24 15:34 12/21/24 15:34 12/21/24 15:34 12/21/24 15:34 Oxygen Delivery Method Room Air Weight: 67.313 kg Body Mass Index (BMI) 28.0 Sodium 134 mmol/L (136-145) L 12/21/24 05:18 Potassium 4.7 mmol/L (3.5-5.1) 12/21/24 05:18 Chloride 98 mmol/L (98-107) 12/21/24 05:18 Carbon Dioxide 30.0 mmol/L (21.0-32.0) 12/21/24 05:18 Anion Gap 6 (5-15) 12/21/24 05:18 BUN 19 mg/dL (7-18) H 12/21/24 05:18 Creatinine 0.68 mg/dL (0.55-1.02) 12/21/24 05:18 Est GFR (MDRD) Af Amer 107 mL/min (>60) 12/21/24 05:18 Est GFR (MDRD) Non-Af 88 mL/min (>60) 12/21/24 05:18 BUN/Creatinine Ratio 28.0 RATIO (10-20) H 12/21/24 05:18 Glucose 97 mg/dL (74-106) 12/21/24 05:18 Assessment/Plan: 1. Pain: acetaminophen 1000mg PO TID and tramadol 50-100mg PO Q6H PRN pain. No PRN doses given. Please continue to monitor for increased pain and PRN usage. Please continue to monitor for increased pain and PRN usage. 2. Bowel: senna/docusate 2T PO BID and magnesium citrate 300mL PO daily PRN constipation. Resident has had 1 dose of magnesium citrate. Last documented bowel movement was 12/21. Please continue to monitor for constipation and PRN usage. 3. DVT prophylaxis: aspirin 81mg PO BIDCM thru 01/17/25. Please continue to monitor for S/S of bleeding/DVT and hemoglobin (last 10g/dL). 4. ID: doxycycline 100mg PO BID thru 01/01/25. Please continue to monitor for S/S of infection, diarrhea and upset stomach. 5. GERD (severe): pantoprazole 40mg PO daily and famotidine 40mg PO QHS. Please continue to monitor for S/S of GERD, diarrhea (BEERs). 6. Allergic rhinitis: fluticasone 0.05% 2 sprays nasal daily PRN nasal congestion and loratadine 10mg PO QHS PRN allergies. No PRN doses given. Please continue to monitor for PRN usage, allergies and congestion. 7. Overactive bladder: vibegron 75mg PO QHS. Please continue to monitor for S/S of overactive bladder. 8. Nausea: ondansetron 8mg PO Q8H PRN nausea. No PRN doses given. Please continue to monitor for PRN usage and nausea. 9. Dry eyes: Artificial tears 1gtt OU BID PRN dry eyes. No PRN doses given. Please continue to monitor for PRN usage and dry eyes. 10. Rash: triamcinolone 0.5% cream topical daily PRN psoriasis areas. No doses given. Please continue to monitor for PRN usage and psoriasis flare. 11. Nutrition/calcium and vitamin D deficiencies: multivitamin 1T PO daily, calcium/vitamin D 1T PO daily and cholecalciferol 25mcg PO daily. Please continue to monitor calcium (last8.6mg/dl) and vitamin D (last 05/2024). Assessment/Plan for indications treated with psychotropic medications: None Medical chart and medication regimen reviewed. The following medication irregularities or issues were identified: None Date Date of Note: 12/21/24 Documented by User: Dr. Mario Saldaña MD 12/21/24 15:51 TCU RX Drug Regimen Review Provider Comments Provider responsibility Provider Comments to Recommendations by Pharmacy Agree
[2024-12-21] MEDS: Famotidine 20 MG Tablet 40 MG PO (16:59)
[2024-12-22] MEDS: Acetaminophen 500 MG Tablet 1000 MG PO ×3 (05:10→20:34)
[2024-12-22] MEDS: Pantoprazole Sodium 40 MG Tablet PO (05:10)
[2024-12-22 06:29] LABS: Anion Gap 6 (5-15); BUN 16 mg/dL (7-18); BUN/Creat Ratio 26.2 RATIO (10-20); Calcium,Total 8.5 mg/dL (8.5-10.1); Chloride 99 mmol/L (98-107); Creatinine, Serum 0.61 mg/dL (0.55-1.02); EST Glomerular Filtration Rate 99 mL/min (>60); Est Glom Filt Rate - Afr Amer 120 mL/min (>60); Estimated Creatinine Clearance 46.77 ml/min; Glucose 100 mg/dL (74-106); Sodium Level 131 mmol/L (136-145)
[2024-12-22 09:04] VITALS: BP 119/56; PULSE 87; RESP 16; TEMP 36.6; O2SAT 98
[2024-12-22] MEDS: Calcium Carb/Vitamin D 1 TABLET Tablet PO (09:08)
[2024-12-22] MEDS: Aspirin 81 MG TAB.CHEW PO ×2 (09:08→16:55)
[2024-12-22] MEDS: Multivitamins,Therapeutic Tablet 1 TABLET PO (09:08)
[2024-12-22] MEDS: Senna/Docusate Sodium 1 Tablet 2 TABLET PO ×2 (09:08→20:33)
[2024-12-22] MEDS: Potassium Chloride Oral Tablet 20 MEQ PO (09:08)
[2024-12-22] MEDS: Cholecalciferol (VIT D3) 25 MCG TABLET (1,000 UNITS) PO (09:08)
[2024-12-22] MEDS: Doxycycline 100 MG CAPSULE PO ×2 (09:08→20:33)
[2024-12-22] MEDS: Menthol/Lanolin/Calamine/Znox 113 GM Tube 1 APPLIC TOPICAL ×2 (09:09→20:36)
[2024-12-22 11:22] VITALS: BMI 28.0
--- NOTE | 2024-12-22 14:50 | CHAPLAIN ---
Type of Pastoral Visit _x__ Initial Visit ___ Follow-up Visit ___ On-call Visit ___ General Patient Visit ___ Spiritual Assessment ___ Family Conference ___ Bereavement ___ Rapid Response ___ Code Blue ___ Other (describe below) Pastoral Care Referral From _x__ Patient ___ Family ___ Nurse ___ Physician ___ Manager Career ___ Military Police Officer ___ Other (describe below) Sacrament/Intervention _x__ Active listening ___ Anointing ___ Confucianist ___ Bereavement ___ Communion _x__ Radha exploration ___ _x__ Life review _x__ Prayer ___ Reconciliation ___ Sacrament of Sick ___ Supportive presence ___ Wedding ___ Other (describe below) Pastoral Comments patient presents with upbeat speech, and a positive outlook on her status and future; pt says that she is ready to go home although it's not today; patient has good family support, good neighbors, and a radha filled attitude of God's care and provision; pt reports on her life as being one filled with many blessings; pt denies further needs
--- NOTE | 2024-12-22 16:01 | NURSING ---
pt updated on staff member testing for covid.
[2024-12-22] MEDS: Famotidine 20 MG Tablet 40 MG PO (16:54)
--- NOTE | 2024-12-22 17:56 | NURSING ---
Dr Saldaña updated on pt refusing gemtesa, pt has not had urinary frequency, pt has been needing to be st cathed 5 times since on unit. pt voided well today with bladder scans WNL. pt also asking about why her potassium and sodium are low. pt updated on dr carpenter diagnosis, teaching info provided to son and pt. verbalized understanding. potassium rich food list given as well. dr saldaña DC'd gemtesa per pt request
[2024-12-22 20:38] VITALS: PULSE 78; RESP 16; O2SAT 97
[2024-12-23] MEDS: Pantoprazole Sodium 40 MG Tablet PO (06:07)
[2024-12-23] MEDS: Acetaminophen 500 MG Tablet 1000 MG PO ×3 (06:07→21:12)
[2024-12-23] MEDS: Aspirin 81 MG TAB.CHEW PO ×2 (08:35→16:41)
[2024-12-23] MEDS: Multivitamins,Therapeutic Tablet 1 TABLET PO (08:35)
[2024-12-23] MEDS: Senna/Docusate Sodium 1 Tablet 2 TABLET PO ×2 (08:36→21:10)
[2024-12-23] MEDS: Calcium Carb/Vitamin D 1 TABLET Tablet PO (08:36)
[2024-12-23] MEDS: Potassium Chloride Oral Tablet 20 MEQ PO (08:36)
[2024-12-23] MEDS: Doxycycline 100 MG CAPSULE PO ×2 (08:36→21:10)
[2024-12-23] MEDS: Cholecalciferol (VIT D3) 25 MCG TABLET (1,000 UNITS) PO (08:36)
[2024-12-23] MEDS: Menthol/Lanolin/Calamine/Znox 113 GM Tube 1 APPLIC TOPICAL ×2 (08:44→21:09)
--- NOTE | 2024-12-23 10:06 | CASEMGMT ---
Social Work IDT met with patient, dtr and sonArtie, for care plan meeting. Discussed patient's progress in PT/OT/SN. Educated to Medicare benefit. Provided written communication on insurance process and copay coverage during stay. Pt's goal is to return home with sonArtie. Son does work 4 days/wk in the evenings. The goal is for pt to become more medically stable and improve strength prior to setting DC date. Pt/family agreed. SW will continue to follow for DC planning. Leah Simeon HOOK AND EYE ATTACHER JUNIOR LINUX ADMINISTRATOR
[2024-12-23 16:00] VITALS: BP 134/67; PULSE 102; RESP 14; TEMP 37; O2SAT 97
[2024-12-23] MEDS: Famotidine 20 MG Tablet 40 MG PO (16:41)
[2024-12-24] MEDS: Acetaminophen 500 MG Tablet 1000 MG PO ×3 (05:39→21:43)
[2024-12-24] MEDS: Pantoprazole Sodium 40 MG Tablet PO (05:40)
[2024-12-24] MEDS: Menthol/Lanolin/Calamine/Znox 113 GM Tube 1 APPLIC TOPICAL ×2 (09:13→21:44)
[2024-12-24] MEDS: Multivitamins,Therapeutic Tablet 1 TABLET PO (09:13)
[2024-12-24] MEDS: Potassium Chloride Oral Tablet 20 MEQ PO (09:13)
[2024-12-24] MEDS: Cholecalciferol (VIT D3) 25 MCG TABLET (1,000 UNITS) PO (09:13)
[2024-12-24] MEDS: Aspirin 81 MG TAB.CHEW PO ×2 (09:13→17:17)
[2024-12-24] MEDS: Doxycycline 100 MG CAPSULE PO ×2 (09:13→21:43)
[2024-12-24] MEDS: Calcium Carb/Vitamin D 1 TABLET Tablet PO (09:13)
[2024-12-24] MEDS: Senna/Docusate Sodium 1 Tablet 2 TABLET PO ×2 (09:13→21:43)
[2024-12-24 09:21] VITALS: BP 137/74; PULSE 92
--- NOTE | 2024-12-24 13:41 | MDS.RN ---
MDS pain assessment complete.
[2024-12-24 15:14] VITALS: BP 104/63; PULSE 98; RESP 18; TEMP 36.7; O2SAT 99
--- NOTE | 2024-12-24 15:56 | CASEMGMT ---
Social Work SW was notified by therapy that pt would like to DC home if/when bloodwork comes back good. SW to follow up with those results. SW left written communication for Dr. Saldaña. Will continue to follow. Leah Simeon PATIENT OBSERVER STUDY MANAGER
[2024-12-24] MEDS: Famotidine 20 MG Tablet 40 MG PO (17:17)
[2024-12-25 04:30] VITALS: PULSE 90; O2SAT 96
[2024-12-25] MEDS: Pantoprazole Sodium 40 MG Tablet PO (05:50)
[2024-12-25] MEDS: Acetaminophen 500 MG Tablet 1000 MG PO ×3 (05:50→19:56)
[2024-12-25 07:02] LABS: Absolute Lymphocyte Count 1.03 X10^3/uL (0.83-4.51); Absolute Neutrophil Count 4.2 X10^3/uL (2.0-7.7); Basophil# 0.03 X10^3/uL; Basophil% 0.5 % (0-1); Eosinophil# 0.08 X10^3/uL; Eosinophils% 1.3 % (0-5); Hematocrit 32.9 % (37-47); Hemoglobin 10.8 g/dL (12.0-15.0); Lymphocyte # 1.03 X10^3/ul (0.83-4.51); Lymphocyte % 17.3 % (19-41); Mean Corp Hgb Conc 32.8 g/dL (32-36); Mean Corpuscular Hgb 29.8 pg (27.0-32.0); Mean Corpuscular Volume 90.6 fL (81-99); Mean Platelet Vol. 8.6 fl (6.2-12.0); Monocyte# 0.63 X10^3/uL; Monocyte% 10.6 % (0-10); NRBC Flagged by Analyzer 0 % (0-5); Neutrophil # 4.17 X10^3/uL (2.7-7.7); Neutrophil % 69.8 % (47-70); Platelet Count 415 K/mm3 (150-450); RBC Distribution Width CV 13.1 % (11.6-14.6); RBC Distribution Width SD 42.7 fl (35.1-43.9); Red Blood Count 3.63 M/mm3 (4.2-5.4)
[2024-12-25 07:33] LABS: Anion Gap 5 (5-15); BUN 17 mg/dL (7-18); BUN/Creat Ratio 24.1 RATIO (10-20); Calcium,Total 9.2 mg/dL (8.5-10.1); Chloride 102 mmol/L (98-107); Creatinine, Serum 0.71 mg/dL (0.55-1.02); EST Glomerular Filtration Rate 84 mL/min (>60); Est Glom Filt Rate - Afr Amer 102 mL/min (>60); Estimated Creatinine Clearance 46.77 ml/min; Glucose 98 mg/dL (74-106); Potassium 4.2 mmol/L (3.5-5.1); Sodium Level 134 mmol/L (136-145)
[2024-12-25] MEDS: Calcium Carb/Vitamin D 1 TABLET Tablet PO (09:04)
[2024-12-25] MEDS: Potassium Chloride Oral Tablet 20 MEQ PO (09:04)
[2024-12-25] MEDS: Aspirin 81 MG TAB.CHEW PO ×2 (09:04→17:06)
[2024-12-25] MEDS: Multivitamins,Therapeutic Tablet 1 TABLET PO (09:04)
[2024-12-25] MEDS: Menthol/Lanolin/Calamine/Znox 113 GM Tube 1 APPLIC TOPICAL ×2 (09:05→20:06)
[2024-12-25] MEDS: Doxycycline 100 MG CAPSULE PO (09:05)
[2024-12-25] MEDS: Senna/Docusate Sodium 1 Tablet 2 TABLET PO (09:05)
[2024-12-25] MEDS: Cholecalciferol (VIT D3) 25 MCG TABLET (1,000 UNITS) PO (09:05)
--- NOTE | 2024-12-25 09:06 | NURSING ---
Head Banquet Waitress Note; MDS for 12/25/2024 Complete
--- NOTE | 2024-12-25 10:10 | NURSING ---
pt off unit to appt, son transporting to dr rebollar office
--- NOTE | 2024-12-25 12:21 | MDS.RN ---
pt returned from ortho at this time
[2024-12-25 12:40] VITALS: BP 154/90; PULSE 104; RESP 15; TEMP 36.6; O2SAT 99
[2024-12-25 13:49] VITALS: BP 140/74; PULSE 107
--- NOTE | 2024-12-25 14:06 | PCM.DC.SUM ---
Providers Date of Admission: 12/18/24 Primary Care Physician: Dr. Aneudy Joshi MD Reason For Visit: Robotic Assisted Knee Conversion from Unilateral A Diagnosis Discharge Diagnosis (1) Debility: Status: Acute Code(s): R53.81 - Other malaise (2) Osteoarthritis of left knee: Status: Acute Code(s): M17.12 - Unilateral primary osteoarthritis, left knee (3) Status post revision of total replacement of left knee: Status: Acute Code(s): Z96.652 - Presence of left artificial knee joint (4) GERD (gastroesophageal reflux disease): Status: Chronic Code(s): K21.9 - Gastro-esophageal reflux disease without esophagitis (5) Sleep apnea: Status: Acute Code(s): G47.30 - Sleep apnea, unspecified (6) Osteoporosis: Status: Acute Code(s): M81.0 - Age-related osteoporosis without current pathological fracture (7) Hearing loss: Status: Acute Code(s): H91.90 - Unspecified hearing loss, unspecified ear Plan 84 year old female with below past medical history underwent conversion of previous medial compartment left partial knee replacement to robotic assisted left total knee replacement 12/14/[address] Nance, postoperative course complicated by hypoxia, admitted to TCU with debility, here for rehabilitation, strengthening, prior to discharge home alone. Debility - PT/OT. Pain - Tylenol 1000mg tid, Tramadol 50mg to 100mg q6 prn. Bowel - senna/colace 2 tablets bid, Magnesium citrate 300mL daily prn. Adult immunization - Administer pneumonia vaccine, covid vaccine, flu vaccine as appropriate. DVT prophylaxis - Aspirin 81mg bidcm thru 01/17/2025. Calcium deficiency - Calcium D 1 tablet daily. Vitamin D deficiency - D3 25mcg daily. ID - Doxycycline 100mg bid thru 01/01/2025. GERD (severe) - Pantoprazole 40mg daily, Famotidine 40mg qhs. Allergic rhinitis - Fluticasone 0.05% 2 sprays nasal daily prn, Loratadine 10mg qhs prn. Nutrition - MVI 1 tablet daily. Nausea - Zofran 8mg q8 prn. Dry eyes - Artificial tears 1gtt ou bid prn. Rash - Triamcinolone 0.5 topical daily prn. Overactive bladder - Gemtesa 75mg qhs. Medications at Discharge Home Medications multivitamin 1 cap PO DAILY supplement 03/12/19 cetirizine 10 mg tablet 10 mg PO QHS PRN allergy symptoms 10/05/20 calcium 600 mg (as carbonate)-vit D3 10 mcg (400 unit) chewable tablet 1 each PO DAILY supplement 01/27/21 carboxymethylcellulose sodium 0.5 % eye drops (Refresh Tears) 1 drp ophthalmic (eye) BID PRN dry eye(s) 06/21/23 triamcinolone acetonide 55 mcg nasal spray aerosol (Nasacort) 2 spray intranasal DAILY PRN nasal congestion 06/21/23 cholecalciferol (vitamin D3) 25 mcg (1,000 unit) capsule (Vitamin D3) 25 mcg PO DAILY supplement 11/23/24 famotidine 40 mg tablet 40 mg PO QHS stomach 11/23/24 mirabegron 50 mg tablet,extended release 24 hr (Myrbetriq) 100 mg PO QHS bladder 11/23/24 pantoprazole 40 mg tablet,delayed release 40 mg PO DAILY stomach 11/23/24 acetaminophen 500 mg tablet 1,000 mg (2 x 500 mg) PO TID #0 tabs 12/25/24 aspirin 81 mg chewable tablet 81 mg PO BIDCM 20 days #0 tabs 12/25/24 potassium chloride 20 mEq tablet,extended release(part/cryst) 20 meq PO DAILYCM 30 days #30 tabs 12/25/24 Hospital Course Operations - (See below.) Procedures None Summary of Care Provided Minutes Spent on Discharge: 35 Hospital Course: 84 year old female with below past medical history underwent conversion of previous medial compartment left partial knee replacement to robotic assisted left total knee replacement 12/14/[address] Nance, postoperative course complicated by hypoxia, admitted to TCU with debility, here for rehabilitation, strengthening, prior to discharge home alone. 12/19/2024 Resident encephalopathic, visual hallucinations, sodium 125, 2/2 SIADH, treated with fluid restriction. 12/25/2024 Sodium 134, consider follow up monitoring. Discharge home with son 12/28/2024, [facility] PT/OT/SN. Physical Exam Const alert General Appearance: cooperative HEENT normocephalic Eyes PERRL and EOMs intact bilaterally Neck supple, no JVD and no carotid bruits Resp normal respiratory effort, normal air movement and clear to auscultation bilaterally Cardio regular rate and regular rhythm GI normal to inspection, nondistended, normoactive bowel sounds, non-tender and non-distended Extremity normal capillary refill General Extremity: Negative for edema Skin no rashes or lesions noted General Skin Exam: no breakdown Psych affect normal Appearance: appropriate Weight / BMI Weight Weight: 67.313 kg Body Mass Index (BMI) 28.0 ABG / Lab / Microbiology Data 12/25/24 06:26 12/25/24 06:26 Laboratory: Laboratory Results - last 24 hr 12/25/24 06:26: WBC 6.0, RBC 3.63 L, Hgb 10.8 L, Hct 32.9 L, MCV 90.6, MCH 29.8, MCHC 32.8, RDW Std Deviation 42.7, RDW Coeff of [place] 13.1, Plt Count 415, MPV 8.6, Immature Gran % (Auto) 0.500, Neut % (Auto) 69.8, Lymph % (Auto) 17.3 L, [place] % (Auto) 10.6 H, Eos % (Auto) 1.3, Baso % (Auto) 0.5, Absolute Neuts (auto) 4.2, Absolute Lymphs (auto) 1.03, Nucleated RBC % 0, Sodium 134 L, Potassium 4.2, Chloride 102, Carbon Dioxide 27.0, Anion Gap 5, BUN 17, Creatinine 0.71, Estim Creat Clear Calc 46.77, Est GFR (MDRD) Af Amer 102, Est GFR (MDRD) Non-Af 84, BUN/Creatinine Ratio 24.1 H, Glucose 98, Calcium 9.2 Microbiology: Microbiology 12/23/24 06:10 Nasal Secretion SARS-CoV-2 Antigen (Rapid) - Final D/C Instructions Discharge Diet: No restrictions Discharge Activity: Return to Normal Activity, May Shower and Use Walker Weight Bearing Status: Weight bearing as tolerated Call your doctor if you observe: Fever of 101 or Higher, Inability to urinate, Inability to have a bowel movement, Shortness of breath, Dizziness, Fainting spells, Swelling in the ankles, Chest pain and Uncontrolled pain DC O2, CPAP, BIPAP Needs Home O2 Discharge instructions: No Additional Instructions: Discharge home with son 12/28/2024, [facility] PT/OT/SN. Please Follow Up With: Alec Nance MD When: As scheduled. Meaningful Use Info Meaningful Use Meaningful Use Diagnoses (Choose all that apply): None applicable Ischemic Stroke Statin Dosing Therapy Reference: STATIN DOSE THERAPY REFERENCE: * Patients > 75 years receive moderate or high dose statin therapy. * Patients 75 years or YOUNGER should receive HIGH intensity statin dose unless contraindicated. You will be required to document reason for non-treatment if statin daily dose does not meet guidelines. HIGH DOSE STATIN THERAPY DAILY Atorvastatin > than or = to 40 mg Rosuvastatin > than or = to 20 mg Amlodipine + Atorvastatin > than or = to 2.5/40 mg Ezetimibe + Simvastatin 10/80 mg Simvastatin 80mg Discharge Plan Admission Admit Date/Time: 12/18/24 11:01 Primary Reason for Your Visit: Debility. Attending Provider: Mario Saldaña Chi Primary Care Provider: Aneudy Joshi Instructions Additional Instructions / Restrictions: Discharge home with son 12/28/2024, [facility] PT/OT/SN. Discharge Orders/Prescriptions Prescriptions: New acetaminophen 500 mg Tablet 1,000 mg PO TID Qty: 0 0RF potassium chloride 20 mEq Tablet,Er Particles/Crystals 20 meq PO DAILYCM 30 Days Qty: 30 0RF aspirin 81 mg Tablet,Chewable 81 mg PO BIDCM 20 Days Qty: 0 0RF Continued multivitamin capsule 1 cap PO DAILY carboxymethylcellulose sodium [Refresh Tears] 0.5 % drops 1 drp ophthalmic (eye) BID PRN (Reason: dry eye(s)) triamcinolone acetonide [Nasacort] 55 mcg aerosol,spray 2 spray intranasal DAILY PRN (Reason: nasal congestion) Rx Instructions: administer into each nostril cetirizine 10 MG tablet 10 mg PO QHS PRN (Reason: allergy symptoms) calcium carbonate-vitamin D3 1 EACH tablet,chewable 1 each PO DAILY mirabegron [Myrbetriq] 50 mg tablet extended release 24 hr 100 mg PO QHS famotidine 40 mg tablet 40 mg PO QHS cholecalciferol (vitamin D3) [Vitamin D3] 25 mcg (1,000 unit) capsule 25 mcg PO DAILY pantoprazole 40 mg tablet,delayed release (DR/EC) 40 mg PO DAILY Discontinued betamethasone dipropionate 15 GM cream 45 g TP PRN PRN (Reason: PSORIASIS) acetaminophen 500 mg Tablet 1,000 mg PO TID 14 Days Qty: 84 0RF Rx Instructions: Do not exceed 3000 mg in 24 hours. aspirin 81 mg capsule 81 mg PO BIDCM 30 Days Qty: 0 0RF Rx Instructions: Take 4 weeks postoperatively for DVT prophylaxis. tramadol 50 mg Tablet 50 - 100 mg PO Q6H PRN PRN (Reason: as needed for pain) 7 Days Qty: 42 0RF doxycycline monohydrate 100 mg Capsule 100 mg PO BID 10 Days Qty: 0 0RF Rx Instructions: Take for 2 weeks postoperatively. ondansetron 4 mg Tablet,Disintegrating 8 mg PO Q8H PRN PRN (Reason: Nausea) 3 Days Qty: 0 0RF Rx Instructions: As needed for nausea and vomiting. Referrals / Follow Up: Kristin Carballo MD [Med Staff - Active Staff] - 12/29/24 1:00 pm Aneudy Joshi MD [Primary Care Provider] - Alec Nance MD [Med Staff - Active Staff] - 01/22/25 10:45 am () Disposition Disposition (needs filled in before D/C Order can be placed): Home Health Service
--- NOTE | 2024-12-25 15:49 | CASEMGMT ---
Social Work SW followed up with Dr. Saldaña and lab work is WNL and DC can be set. SW spoke with pt at bedside. Discussed DC. Pt is agreeable to set DC date, requesting DC 12/28. SW offered HHC vs OP therapy. Pt prefers HHC. SW provided printed list of providers including quality and resource data via [employer]. Pt prefers [facility]. Pt denied DME needs. Son can transport. BIMS () and PHQ-2 () completed for MDS assessment. SW phoned referral to [facility] PT/OT/SN. Plan: DC home with son 12/28, [facility] PT/OT/SN Leah Simeon SUPERVISOR LAUNDRY BAG INSPECTOR
[2024-12-25] MEDS: Famotidine 20 MG Tablet 40 MG PO (17:06)
[2024-12-25 17:11] VITALS: BP 147/84; PULSE 101
[2024-12-26] MEDS: Pantoprazole Sodium 40 MG Tablet PO (05:16)
[2024-12-26] MEDS: Acetaminophen 500 MG Tablet 1000 MG PO ×3 (05:17→21:13)
[2024-12-26] MEDS: Menthol/Lanolin/Calamine/Znox 113 GM Tube 1 APPLIC TOPICAL ×2 (09:22→21:15)
[2024-12-26] MEDS: Calcium Carb/Vitamin D 1 TABLET Tablet PO (09:22)
[2024-12-26] MEDS: Multivitamins,Therapeutic Tablet 1 TABLET PO (09:22)
[2024-12-26] MEDS: Aspirin 81 MG TAB.CHEW PO ×2 (09:22→17:43)
[2024-12-26] MEDS: Potassium Chloride Oral Tablet 20 MEQ PO (09:22)
[2024-12-26] MEDS: Cholecalciferol (VIT D3) 25 MCG TABLET (1,000 UNITS) PO (09:22)
[2024-12-26] MEDS: Tuberculin,Purif.prot.deriv. 50 TU/ML Vial 0.1 ML ID (10:07)
[2024-12-26 11:31] VITALS: BP 138/76; PULSE 99; RESP 16; TEMP 36.5; O2SAT 97
[2024-12-26] MEDS: Famotidine 20 MG Tablet 40 MG PO (17:43)
[2024-12-27 04:03] VITALS: PULSE 132; RESP 18; O2SAT 97
[2024-12-27] MEDS: Pantoprazole Sodium 40 MG Tablet PO (06:07)
[2024-12-27] MEDS: Acetaminophen 500 MG Tablet 1000 MG PO ×3 (06:07→20:35)
[2024-12-27] MEDS: Potassium Chloride Oral Tablet 20 MEQ PO (09:05)
[2024-12-27] MEDS: Senna/Docusate Sodium 1 Tablet 2 TABLET PO (09:05)
[2024-12-27] MEDS: Aspirin 81 MG TAB.CHEW PO ×2 (09:05→16:19)
[2024-12-27] MEDS: Multivitamins,Therapeutic Tablet 1 TABLET PO (09:05)
[2024-12-27] MEDS: Calcium Carb/Vitamin D 1 TABLET Tablet PO (09:05)
[2024-12-27] MEDS: Cholecalciferol (VIT D3) 25 MCG TABLET (1,000 UNITS) PO (09:06)
[2024-12-27] MEDS: Menthol/Lanolin/Calamine/Znox 113 GM Tube 1 APPLIC TOPICAL ×2 (09:08→20:37)
[2024-12-27 11:39] VITALS: BP 142/81; PULSE 94; RESP 17; TEMP 36.5; O2SAT 96
[2024-12-27] MEDS: Famotidine 20 MG Tablet 40 MG PO (16:19)
[2024-12-28] MEDS: Pantoprazole Sodium 40 MG Tablet PO (06:08)
[2024-12-28] MEDS: Acetaminophen 500 MG Tablet 1000 MG PO (06:08)
[2024-12-28 06:16] VITALS: PULSE 99; RESP 16; O2SAT 98
[2024-12-28] MEDS: Multivitamins,Therapeutic Tablet 1 TABLET PO (09:21)
[2024-12-28] MEDS: Cholecalciferol (VIT D3) 25 MCG TABLET (1,000 UNITS) PO (09:21)
[2024-12-28] MEDS: Senna/Docusate Sodium 1 Tablet 2 TABLET PO (09:21)
[2024-12-28] MEDS: Aspirin 81 MG TAB.CHEW PO (09:21)
[2024-12-28] MEDS: Menthol/Lanolin/Calamine/Znox 113 GM Tube 1 APPLIC TOPICAL (09:21)
[2024-12-28] MEDS: Potassium Chloride Oral Tablet 20 MEQ PO (09:21)
[2024-12-28] MEDS: Calcium Carb/Vitamin D 1 TABLET Tablet PO (09:21)
[2024-12-28 10:27] VITALS: BP 153/82; PULSE 97; RESP 17; TEMP 36.7; O2SAT 98
--- NOTE | 2024-12-29 12:22 | MDS.RN ---
Information for the MDS was obtained from review of the clinical record, interview of resident, staff, and direct observation of resident?s care.
== END 2024-12-28 11:15 | disposition home health service (06) | DRG 560 ==
PROVIDERS: Admitting Provider Family Medicine Geriatric Medicine; PCP Family Medicine; Visit Provider Family Medicine Geriatric Medicine
DX: Z47.1 Aftercare following joint replacement surgery (principal); E22.2 Syndrome of inappropriate secretion of antidiuretic hormone; E55.9 Vitamin D deficiency, unspecified; G47.30 Sleep apnea, unspecified; M17.12 Unilateral primary osteoarthritis, left knee; K21.9 Gastro-esophageal reflux disease without esophagitis; N32.81 Overactive bladder; Z79.82 Long term (current) use of aspirin; Z96.652 Presence of left artificial knee joint; H91.90 Unspecified hearing loss, unspecified ear; Z86.14 Personal history of Methicillin resistant Staphylococcus aureus infection; M81.0 Age-related osteoporosis without current pathological fracture; Z79.899 Other long term (current) drug therapy
CPT/HCPCS: 36415; 80048; 83930; 83935; 84300; 85025; 87811; 97110; 97116; 97162; 97166; 97530; 97535; 97802

== ENCOUNTER → 2025-01-08 | Outpatient (CLI) | payer MEDICARE, OTHER, SELFPAY ==
[2025-01-08 15:36] LABS: Absolute Neutrophil Count 2.7 X10^3/uL (2.0-7.7); Basophil# 0.04 X10^3/uL; Basophil% 0.9 % (0-1); Eosinophil# 0.38 X10^3/uL; Eosinophils% 8.4 % (0-5); Hematocrit 36.7 % (37-47); Hemoglobin 11.9 g/dL (12.0-15.0); Lymphocyte % 19.8 % (19-41); Mean Corp Hgb Conc 32.4 g/dL (32-36); Mean Corpuscular Hgb 30.4 pg (27.0-32.0); Mean Corpuscular Volume 93.9 fL (81-99); Mean Platelet Vol. 9.7 fl (6.2-12.0); NRBC Flagged by Analyzer 0 % (0-5); Neutrophil # 2.72 X10^3/uL (2.7-7.7); Neutrophil % 59.7 % (47-70); Platelet Count 387 K/mm3 (150-450); RBC Distribution Width CV 13.8 % (11.6-14.6); RBC Distribution Width SD 47.5 fl (35.1-43.9); Red Blood Count 3.91 M/mm3 (4.2-5.4); White Blood Count 4.6 K/mm3 (4.4-11.0)
[2025-01-08 15:55] LABS: Hemoglobin A1c 5.2 % (<=5.6)
[2025-01-08 17:43] LABS: Osmolality, Serum 270 mOsm/KG (280-301); Osmolality, Urine 209 mOsm/KG
[2025-01-08 19:02] LABS: Urine Chloride 24 mmol/L (Not Establ.); Urine Potassium 18.6 mmol/L (Not Establ.); Urine Sodium 20 mmol/L (Not Establ.)
[2025-01-08 20:03] LABS: ALB/GLOB Ratio 1.3 RATIO (0.9-2.4); AST(SGOT) 25 U/L (<=31); Alanine Aminotransfer ALT/SGPT 13 U/L (<=34); Albumin, Serum 4.1 g/dL (3.4-4.8); Alkaline Phosphatase 93 U/L (35-104); Anion Gap 17 (5-15); BUN 11 mg/dL (4-19); BUN/Creat Ratio 16.5 RATIO (10-20); Calcium 9.6 mg/dL (7.6-11.0); Carbon Dioxide 20.2 mmol/L (22.0-29.0); Chloride 96 mmol/L (96-108); Creatinine, Serum 0.68 mg/dL (0.70-1.20); EST Glomerular Filtration Rate 86 (>60); Globulin 3.1 g/dL (2.2-4.2); Glucose 66 mg/dL (70-99); Potassium 4.2 mmol/L (3.3-5.1); Protein, Total 7.1 g/dL (5.9-8.4); Sodium Level 133 mmol/L (133-145); Total Bilirubin 0.22 mg/dL (0.00-1.30)
== END | disposition home or self-care (01) ==
LOC: MFPLAB 12:00
PROVIDERS: PCP Family Medicine; Referring Provider Family Medicine; Visit Provider Family Medicine
DX: E22.2 Syndrome of inappropriate secretion of antidiuretic hormone (principal); R73.02 Impaired glucose tolerance (oral)
CPT/HCPCS: 36415; 80053; 82436; 83036; 83930; 83935; 84133; 84300; 85025

== ENCOUNTER → 2025-02-05 | Outpatient (CLI) | payer MEDICARE, OTHER, SELFPAY ==
[2025-02-05 16:37] LABS: ALB/GLOB Ratio 1.1 RATIO (0.9-2.4); AST(SGOT) 22 U/L (<=31); Alanine Aminotransfer ALT/SGPT 12 U/L (<=34); Albumin, Serum 3.7 g/dL (3.4-4.8); Alkaline Phosphatase 87 U/L (35-104); Anion Gap 16 (5-15); BUN 14 mg/dL (4-19); BUN/Creat Ratio 19.7 RATIO (10-20); Calcium,Total 9.5 mg/dL (7.6-11.0); Carbon Dioxide 18.4 mmol/L (21.0-32.0); Chloride 102 mmol/L (98-108); Creatinine, Serum 0.69 mg/dL (0.70-1.20); EST Glomerular Filtration Rate 86 (>60); Globulin 3.3 g/dL (2.2-4.2); Glucose 71 mg/dL (70-99); Potassium 4.2 mmol/L (3.3-5.1); Protein, Total 6.9 g/dL (5.9-8.4); Sodium Level 136 mmol/L (133-145); Total Bilirubin 0.16 mg/dL (0.00-1.30)
== END | disposition home or self-care (01) ==
LOC: MFPLAB 11:05
PROVIDERS: PCP Family Medicine; Referring Provider Family Medicine; Visit Provider Family Medicine
DX: E22.2 Syndrome of inappropriate secretion of antidiuretic hormone (principal)
CPT/HCPCS: 36415; 80053

== ENCOUNTER → 2025-06-09 | Outpatient (CLI) | payer MEDICARE, OTHER, SELFPAY ==
[2025-06-09 16:06] LABS: Hematocrit 38.7 % (37-47); Hemoglobin 12.4 g/dL (12.0-15.0); Immature Granulocytes Count 0.010 X10^3/uL (0.0-0.0); Mean Corp Hgb Conc 32.0 g/dL (32-36); Mean Corpuscular Volume 92.8 fL (81-99); Mean Platelet Vol. 10.9 fl (6.2-12.0); NRBC Flagged by Analyzer 0 % (0-5); Platelet Count 261 K/mm3 (150-450); RBC Distribution Width CV 13.2 % (11.6-14.6); RBC Distribution Width SD 44.9 fl (35.1-43.9); Red Blood Count 4.17 M/mm3 (4.2-5.4); White Blood Count 4.7 K/mm3 (4.4-11.0)
[2025-06-09 16:35] LABS: AST(SGOT) 24 U/L (<=31); Alanine Aminotransfer ALT/SGPT 16 U/L (<=34); Albumin, Serum 4.0 g/dL (3.4-4.8); Alkaline Phosphatase 98 U/L (35-104); Anion Gap 12 (5-15); BUN 14 mg/dL (4-19); BUN/Creat Ratio 20.6 RATIO (10-20); Calcium,Total 9.5 mg/dL (7.6-11.0); Carbon Dioxide 21.8 mmol/L (21.0-32.0); Chloride 102 mmol/L (98-108); Globulin 2.9 g/dL (2.2-4.2); Glucose 90 mg/dL (70-99); Potassium 4.1 mmol/L (3.3-5.1)
== END | disposition home or self-care (01) ==
LOC: MFPLAB 11:34
PROVIDERS: PCP Family Medicine
DX: R23.2 Flushing (principal)
CPT/HCPCS: 36415; 80053; 84443; 85025

== ENCOUNTER 2025-07-08 11:08 | Outpatient (CLI) | payer MEDICARE, OTHER, SELFPAY ==
[2025-07-08 12:50] LABS: Hematocrit 38.9 % (37-47); Hemoglobin 12.8 g/dL (12.0-15.0); Immature Granulocytes Count 0.010 X10^3/uL (0.0-0.0); Mean Corp Hgb Conc 32.9 g/dL (32-36); Mean Corpuscular Volume 91.3 fL (81-99); Mean Platelet Vol. 10.6 fl (6.2-12.0); NRBC Flagged by Analyzer 0 % (0-5); Platelet Count 255 K/mm3 (150-450); RBC Distribution Width CV 12.4 % (11.6-14.6); RBC Distribution Width SD 41.5 fl (35.1-43.9); Red Blood Count 4.26 M/mm3 (4.2-5.4); White Blood Count 4.2 K/mm3 (4.4-11.0)
[2025-07-08 13:17] LABS: AST(SGOT) 25 U/L (<=31); Alanine Aminotransfer ALT/SGPT 17 U/L (<=34); Albumin, Serum 4.1 g/dL (3.4-4.8); Alkaline Phosphatase 103 U/L (35-104); Anion Gap 12 (5-15); BUN 11 mg/dL (4-19); BUN/Creat Ratio 17.4 RATIO (10-20); Calcium,Total 9.4 mg/dL (7.6-11.0); Carbon Dioxide 22.9 mmol/L (21.0-32.0); Chloride 100 mmol/L (98-108); Globulin 2.8 g/dL (2.2-4.2); Glucose 99 mg/dL (70-99); Potassium 4.0 mmol/L (3.3-5.1); Vitamin D,25 Hydroxy 38.6 ng/mL (30-100)
== END 2025-07-08 23:59 | disposition home or self-care (01) ==
LOC: MFPLAB 11:09
PROVIDERS: PCP Family Medicine; Referring Provider Family Medicine; Visit Provider Family Medicine
DX: R73.02 Impaired glucose tolerance (oral) (principal); M81.0 Age-related osteoporosis without current pathological fracture
CPT/HCPCS: 36415; 80053; 82306; 83036; 85025